=== PATIENT | female | born 1955 | race American Indian/Alaskan Native ===

== ENCOUNTER 2017-03-03 10:32 | Outpatient (CLI) | payer OTHER ==
--- NOTE | 2017-03-05 14:59 | Mammography Report ---
BILATERAL MAMMOGRAM with CAD: HISTORY: Cancer screening. Comparison study is dated February 23, 2015. FINDINGS: The breast tissue is heterogeneously dense, which could obscure detection of small masses (approximately 50%-75% glandular). No mass, distortion, suspicious calcification, or skin change is seen. IMPRESSION: Negative mammogram. There is no mammographic evidence of malignancy. RECOMMENDATION: Follow-up per ACS guidelines. BI-RADS CATEGORY: 1 = Negative ACR BI-RADS MAMMOGRAPHIC CODES: 0 = Needs additional imaging evaluation; 1 = Negative; 2 = Benign; 3 = Probably benign; 4 = Suspicious; 5 = Malignant; 6 = Known biopsy-proven malignancy COMMENT: 1. Dense breast tissue, i.e., adenosis, fibrocystic changes, etc., may obscure an underlying neoplasm. 2. Approximately 10% of cancers are not detected with mammography. 3. A negative mammography report should not delay biopsy if a clinically suspicious mass is present. COMMENT: Patient follow-up letters are generated in [employer].
== END 2017-03-03 10:33 | disposition home or self-care (01) ==
LOC: MAMMO 10:32
PROVIDERS: ATTEND Family Medicine Adult Medicine
DX: Z12.31 Encounter for screening mammogram for malignant neoplasm of breast (principal); I10 Essential (primary) hypertension; Z87.891 Personal history of nicotine dependence
CPT/HCPCS: 77067; G0202

== ENCOUNTER 2018-05-11 08:01 | Outpatient (CLI) | payer OTHER ==
--- NOTE | 2018-05-11 11:16 | Mammography Report ---
BILATERAL DIGITAL SCREENING MAMMOGRAM with CAD: 05/11/18 08:01:00 CLINICAL: Routine screening. COMPARISON:03/03/17 FINDINGS: The breasts are heterogeneously dense, which may obscure small masses. No mass, architectural distortion or suspicious calcifications. IMPRESSION: No mammographic evidence of malignancy. BI-RADS CATEGORY: 1 - - Negative RECOMMENDATION: Routine mammographic screening in one year. COMMENT: Patient follow-up letters are generated by our [employer] application.
== END 2018-05-11 08:02 | disposition home or self-care (01) ==
LOC: MAMMO 08:01
PROVIDERS: ATTEND Family Medicine Adult Medicine
DX: Z12.31 Encounter for screening mammogram for malignant neoplasm of breast (principal)
CPT/HCPCS: 77067

== ENCOUNTER 2019-06-25 09:38 | Outpatient (CLI) | payer OTHER ==
--- NOTE | 2019-06-28 10:35 | Mammography Report ---
DIGITAL SCREENING MAMMOGRAM WITH CAD, 06/25/2019 INDICATION: Routine screening mammography. TECHNIQUE: Digital bilateral 2D mammography was obtained in the craniocaudal and mediolateral obliq ue projections. This examination was interpreted with the benefit of Computer-Aided Detection analysi s. COMPARISON: 05/11/2018 FINDINGS: Breast Density: The breasts are heterogeneously dense, which may obscure small masses. There is no evidence of dominant mass, suspicious calcifications or architectural distortion in eithe r breast. A few scattered bilateral benign calcifications. IMPRESSION: No mammographic evidence of malignancy. Follow up recommendation: Routine yearly BI-RADS Category 2: Benign. A "normal" or negative report should not discourage follow up or biopsy of a clinically significant f inding. A written summary of these findings will be mailed to the patient. The patient will be entered into a mammography reporting system which will generate a reminder letter for the patient's next appointmen t at the appropriate interval. The [employer] recommends yearly mammograms starting at age 40 and continuing as l rivera as a woman is in good health. Breast MRI is recommended for women with an approximate 20-25% or greater lifetime risk of breast cancer, including women with a strong family history of breast or ova susan cancer or who have been treated for Hodgkin's disease. Signer Name: Yannick Spicer MD Signed: 06/28/2019 10:30 AM Workstation Name: [id number]
== END 2019-06-25 09:39 | disposition home or self-care (01) ==
LOC: MAMMO 09:38
PROVIDERS: ATTEND Family Medicine Adult Medicine
DX: Z12.31 Encounter for screening mammogram for malignant neoplasm of breast (principal)
CPT/HCPCS: 77067

== ENCOUNTER 2020-06-26 09:06 | Outpatient (CLI) | payer OTHER ==
--- NOTE | 2020-06-26 10:25 | Mammography Report ---
DIGITAL SCREENING MAMMOGRAM WITH CAD, 06/26/2020 INDICATION: Routine screening mammography. TECHNIQUE: Digital bilateral 2D mammography was obtained in the craniocaudal and mediolateral obliq ue projections. This examination was interpreted with the benefit of Computer-Aided Detection analysi s. COMPARISON: Prior mammograms 06/25/2019 and 05/11/2018 FINDINGS: Breast Density: The breasts are heterogeneously dense, which may obscure small masses. There is no evidence of dominant mass, suspicious calcifications or architectural distortion in eithe r breast. There has been no significant change compared with the prior examinations. IMPRESSION: Follow up recommendation: Routine yearly BI-RADS Category 1: Negative. A "normal" or negative report should not discourage follow up or biopsy of a clinically significant f inding. A written summary of these findings will be mailed to the patient. The patient will be entered into a mammography reporting system which will generate a reminder letter for the patient's next appointmen t at the appropriate interval. The [employer] recommends yearly mammograms starting at age 40 and continuing as l rivera as a woman is in good health. Breast MRI is recommended for women with an approximate 20-25% or greater lifetime risk of breast cancer, including women with a strong family history of breast or ova susan cancer or who have been treated for Hodgkin's disease. Signer Name: Sobia Carbajal MD Signed: 06/26/2020 10:20 AM Workstation Name: [id number]
== END 2020-06-26 09:07 | disposition home or self-care (01) ==
LOC: MAMMO 09:06
PROVIDERS: ATTEND Family Medicine Adult Medicine
DX: Z12.31 Encounter for screening mammogram for malignant neoplasm of breast (principal)
CPT/HCPCS: 77067

== ENCOUNTER 2021-03-07 12:43 | Inpatient (IN) | payer OTHER ==
--- NOTE | 2021-03-07 13:37 | Event Note ---
ED Screening Note Date of service: 03/07/21 Time: 13:37 ED Screening Note: Patient complains of shortness of breath starting last night States she has had a nonproductive cough for 1 week Denies any chest pain or fever History of diabetes and hypertension No recent long travel, hemoptysis, leg pain/swelling, or history of DVT/PE This initial assessment/diagnostic orders/clinical plan/treatment(s) is/are subject to change based on patients health status, clinical progression and re-assessment by fellow clinical providers in the ED. Further treatment and workup at subsequent clinical providers discretion. Patient/guardian urged not to elope from the ED as their condition may be serious if not clinically assessed and managed. Initial orders include: Labs Chest x-ray
--- NOTE | 2021-03-07 14:08 | XRay Report ---
CHEST 2 VIEWS INDICATION / CLINICAL INFORMATION: shortness of breath, cough. COMPARISON: 03/30/2020 FINDINGS: SUPPORT DEVICES: None. HEART / MEDIASTINUM: Stable. LUNGS / PLEURA: Interval development of confluent infiltrate in the right lung base. Small bilateral pleural effusions, right minimally greater than left.. No pneumothorax. ADDITIONAL FINDINGS: No significant additional findings. IMPRESSION: 1. Interval development of confluent infiltrate in the right lung base likely represents an infectiou s process. 2. Interval development of small bilateral pleural effusions with associated compressive atelectasis. Signer Name: Alistair Rowan MD Signed: 03/07/2021 2:03 PM Workstation Name: [id number]
[2021-03-07 14:43] LABS: Basophils # (Auto) 0.1 K/mm3 (0.0-0.1); Basophils % (Auto) 0.9 % (0.0-1.8); Eosinophils # (Auto) 0.1 K/mm3 (0.0-0.4); Eosinophils % (Auto) 1.1 % (0.0-4.3); Hematocrit 34.9 % (30.3-42.9); Hemoglobin 11.4 gm/dl (10.1-14.3); Lymphocytes # (Auto) 1.3 K/mm3 (1.2-5.4); Lymphocytes % (Auto) 14.7 % (13.4-35.0); Mean Corpuscular HGB Conc 33 % (30-34); Mean Corpuscular Volume 95 fl (79-97); Monocytes # (Auto) 0.7 K/mm3 (0.0-0.8); Monocytes % (Auto) 8.6 % (0.0-7.3); Platelet Count 412 K/mm3 (140-440); Red Blood Count 3.69 M/mm3 (3.65-5.03); Red Cell Distribution Width 13.8 % (13.2-15.2)
[2021-03-07 15:28] LABS: Albumin 3.9 g/dL (3.9-5); Calcium 9.1 mg/dL (8.4-10.2)
--- NOTE | 2021-03-07 21:06 | Emergency Department Report ---
ED Shortness of Breath HPI - General Chief Complaint: Dyspnea/Respdistress Stated Complaint: SOB Time Seen by Provider: 03/07/21 13:36 Source: patient Mode of arrival: Ambulatory Limitations: No Limitations - History of Present Illness Initial Comments: Patient is a 65-year-old female that presents emergency room with complaints of shortness of breath. Patient states shortness of breath started yesterday. Patient states her shortness of breath is worse. Patient also complains of fatigue. Patient states approximate week ago she had a cough and cold but that has improved and now she is just has a cough and shortness of breath. Patient states she has not been tested for COVID-19. Patient dates she has had both of her doses of her COVID-19 vaccine. Patient states her shortness breath better with rest and worse with exertion. Patient states her fatigue is better with rest and worse with exertion and movement. Patient denies fever and chills. Patient denies recent travel. Patient denies recent international travel. Patient denies exposure to the novel coronavirus. Patient denies sick contacts. Patient denies fever and chills. Patient denies loss of smell.. Patient denies diarrhea. Patient denies coming in contact with anybody with symptoms of the novel coronavirus. Patient denies chest pain. MD Complaint: shortness of breath -: Sudden - Related Data Home Medications Medication Instructions Recorded Confirmed Last Taken Bisoprolol/Hctz (Nf) [Ziac 5/6.25 1 tab PO QDAY 05/28/16 03/30/20 08/06/16 05:00 (Nf)] Ibuprofen [Motrin 800 MG tab] 800 mg PO TID 05/28/16 03/30/20 08/04/16 400 MG Multivit-Min/FA/Lycopen/Lutein 1 each PO QDAY 05/28/16 03/30/20 08/05/16 [Centrum Silver Tablet] Nesina 25 mg PO DAILY 05/31/16 03/30/20 08/05/16 Previous Rx's Medication Instructions Recorded Last Taken Type lisinopriL [Zestril TAB] 20 mg PO QDAY #30 tablet 11/12/13 Unknown Rx HYDROcodone/APAP 5-325 [[place] 1 - 2 each PO Q4HR PRN #30 tablet 08/06/16 Unknown Rx 5-325 mg TAB] Aspirin EC [Ecotrin] 325 mg PO QDAY #30 tablet 04/02/20 Unknown Rx NIFEdipine XL [Procardia Xl] 30 mg PO Q12HR #60 tablet 04/02/20 Unknown Rx Pravastatin [Pravachol] 80 mg PO QHS #30 tablet 04/02/20 Unknown Rx hydrALAZINE [Apresoline TAB] 75 mg PO Q8HR #90 tablet 04/02/20 Unknown Rx Allergies Allergy/AdvReac Type Severity Reaction Status Date / Time No Known Allergies Allergy Verified 11/10/13 15:34 ED Review of Systems ROS: Stated complaint: SOB Other details as noted in HPI Constitutional: denies: chills, fever Eyes: denies: eye pain, eye discharge, vision change ENT: denies: ear pain, throat pain Respiratory: see HPI, cough, shortness of breath, SOB with exertion, SOB at rest. denies: wheezing Cardiovascular: denies: chest pain, palpitations Endocrine: no symptoms reported Gastrointestinal: denies: abdominal pain, nausea, diarrhea Genitourinary: denies: urgency, dysuria, discharge Musculoskeletal: denies: back pain, joint swelling, arthralgia Skin: denies: rash, lesions Neurological: denies: headache, weakness, paresthesias Psychiatric: denies: anxiety, depression Hematological/Lymphatic: denies: easy bleeding, easy bruising ED Past Medical Hx - Past Medical History Previous Medical History?: Yes Hx Hypertension: Yes Hx Heart Attack/AMI: No Hx Congestive Heart Failure: No Hx Diabetes: Yes Hx Deep Vein Thrombosis: No Hx Pulmonary Embolism: No Hx GERD: No Hx Liver Disease: No Hx Renal Disease: No Hx Sickle Cell Disease: No Hx Arthritis: No Hx Headaches / Migraines: No Hx Seizures: No Hx Kidney Stones: No Hx Asthma: No Hx COPD: No Hx Tuberculosis: No Hx Dementia: No Hx HIV: No Additional medical history: hyperlipidemia - Surgical History Past Surgical History?: No Hx Coronary Stent: No Hx Open Heart Surgery: No Hx Pacemaker: No Hx Internal Defibrillator: No Hx Cholecystectomy: No Hx Appendectomy: No Hx Breast Surgery: No - Family History Family history: no significant - Social History Smoking Status: Former Smoker Substance Use Type: None - Medications Home Medications: Home Medications Medication Instructions Recorded Confirmed Last Taken Type lisinopriL [Zestril TAB] 20 mg PO QDAY #30 tablet 11/12/13 03/30/20 Unknown Rx Bisoprolol/Hctz (Nf) [Ziac 5/6.25 1 tab PO QDAY 05/28/16 03/30/20 08/06/16 05:00 History (Nf)] Ibuprofen [Motrin 800 MG tab] 800 mg PO TID 05/28/16 03/30/20 08/04/16 History 400 MG Multivit-Min/FA/Lycopen/Lutein 1 each PO QDAY 05/28/16 03/30/20 08/05/16 History [Centrum Silver Tablet] Nesina 25 mg PO DAILY 05/31/16 03/30/20 08/05/16 History HYDROcodone/APAP 5-325 [[place] 1 - 2 each PO Q4HR PRN #30 tablet 08/06/16 03/30/20 Unknown Rx 5-325 mg TAB] Aspirin EC [Ecotrin] 325 mg PO QDAY #30 tablet 04/02/20 Unknown Rx NIFEdipine XL [Procardia Xl] 30 mg PO Q12HR #60 tablet 04/02/20 Unknown Rx Pravastatin [Pravachol] 80 mg PO QHS #30 tablet 04/02/20 Unknown Rx hydrALAZINE [Apresoline TAB] 75 mg PO Q8HR #90 tablet 04/02/20 Unknown Rx ED Physical Exam - General Limitations: No Limitations General appearance: alert, in no apparent distress - Head Head exam: Present: atraumatic, normocephalic - Eye Eye exam: Present: normal appearance - ENT ENT exam: Present: mucous membranes moist - Neck Neck exam: Present: normal inspection - Respiratory Respiratory exam: Present: normal lung sounds bilaterally. Absent: respiratory distress - Cardiovascular Cardiovascular Exam: Present: regular rate, normal rhythm. Absent: systolic murmur, diastolic murmur, rubs, gallop - GI/Abdominal GI/Abdominal exam: Present: soft, normal bowel sounds - Extremities Exam Extremities exam: Present: normal inspection - Back Exam Back exam: Present: normal inspection - Neurological Exam Neurological exam: Present: alert, oriented X3 - Psychiatric Psychiatric exam: Present: normal affect, normal mood - Skin Skin exam: Present: warm, dry, intact, normal color. Absent: rash ED Course Vital Signs 03/07/21 03/07/21 03/07/21 13:32 13:38 20:35 Temperature 99.2 F Pulse Rate 106 H 107 H 88 Respiratory 18 19 Rate Blood Pressure Blood Pressure 166/98 [Right] O2 Sat by Pulse 98 98 98 Oximetry 03/07/21 03/07/21 03/07/21 20:45 21:01 21:15 Temperature Pulse Rate 89 90 94 H Respiratory 18 20 19 Rate Blood Pressure 154/98 165/113 165/103 Blood Pressure [Right] O2 Sat by Pulse 96 96 94 Oximetry 03/07/21 03/07/21 21:31 21:45 Temperature Pulse Rate 91 H 93 H Respiratory 19 18 Rate Blood Pressure 164/104 167/101 Blood Pressure [Right] O2 Sat by Pulse 95 96 Oximetry - Reevaluation(s) Reevaluation #1: I discussed all results with patient. I discussed plan of care with patient. Patient agrees with plan of care and admission. Patient to be admitted to the hospitalist service. 03/07/21 23:08 - Consultations Consultation #1: Hospitalist consulted for admission. Hospitalist to admit patient. 03/07/21 23:08 Consultation #2: Nephrology consulted. 03/07/21 23:08 ED Medical Decision Making - Lab Data Result diagrams: 03/07/21 14:27 03/07/21 14:27 - EKG Data -: EKG Interpreted by Me EKG shows normal: sinus rhythm, axis, intervals, QRS complexes, ST-T waves Rate: normal - EKG Data Interpretation: LV[facility] - Radiology Data Radiology results: report reviewed, image reviewed interpreted by me: Chest x-ray: pneumonia noted, no pneumothorax, no foreign body, no osseous findings, pulmonary edema noted CHEST 2 VIEWS INDICATION / CLINICAL INFORMATION: shortness of breath, cough. COMPARISON: 03/30/2020 FINDINGS: SUPPORT DEVICES: None. HEART / MEDIASTINUM: Stable. LUNGS / PLEURA: Interval development of confluent infiltrate in the right lung base. Small bilateral pleural effusions, right minimally greater than left.. No pneumothorax. ADDITIONAL FINDINGS: No significant additional findings. IMPRESSION: 1. Interval development of confluent infiltrate in the right lung base likely represents an infectious process. 2. Interval development of small bilateral pleural effusions with associated compressive atelectasis. - Medical Decision Making Patient is a 65-year-old female that presents emergency room with complaints of shortness of breath and cough. Patient states she had a cold symptoms about a week ago but those have improved. Patient states only symptoms she has shortness of breath cough fatigue. Patient already had a COVID-19 vaccine. Patient had labs done which were consistent with acute renal failure and elevated troponin. Patient also found to have an elevated BNP. Patient had chest x-ray which shows pneumonia and pulmonary edema. I personally reviewed the chest x-ray. Patient had an EKG done which shows LVH and a normal sinus rhythm. Patient does not have any ST changes. I personally reviewed the EKG. Patient given antibiotics and IV Lasix in the ER. Patient admitted to the hospital service for further evaluation treatment. Critical care time documented due to the multiple reassessments, prolonged time at the bedside, interpretation of diagnostics and labs. - Differential Diagnosis Pneumonia, shortness of breath, cough, URI, CHF, Critical Care Time: Yes Critical care time in (mins) excluding proc time.: 35 Critical care attestation.: If time is entered above; I have spent that time in minutes in the direct care of this critically ill patient, excluding procedure time. Critical Care Time: 35 minutes ED Disposition Clinical Impression: SOB (shortness of breath), Cough, New onset of congestive heart failure, Pulmonary edema cardiac cause, Elevated troponin I level Renal failure Qualifiers: Renal failure chronicity: acute Acute renal failure type: unspecified Qualified Code(s): N17.9 - Acute kidney failure, unspecified Pneumonia Qualifiers: Pneumonia type: due to unspecified organism Laterality: right Lung location: unspecified part of lung Qualified Code(s): J18.9 - Pneumonia, unspecified organism Disposition: OP ADMIT IP TO THIS HOSP Is pt being admited?: Yes Does the pt Need Aspirin: No Condition: Stable Time of Disposition: 23:10
[2021-03-07 22:31] LABS: Chol/HDL Ratio 2.67 %
[2021-03-07] MEDS ORDERED: CEFEPIME/NS 2 GM/100 ML 2 GM/100 ML BAG IV ONE (23:11)
[2021-03-07] MEDS ORDERED: FUROSEMIDE 40 MG/4 ML INJ IV ONE (23:11)
[2021-03-07] MEDS ORDERED: DEXTROSE 50% IN WATER (25GM) 50 ML SYRINGE IV PRN (23:40)
[2021-03-07] MEDS ORDERED: ACETAMINOPHEN 325 MG TAB PO PRN (23:40)
[2021-03-07] MEDS ORDERED: ONDANSETRON 4 MG/2 ML INJ IV PRN (23:40)
[2021-03-07] MEDS ORDERED: ALBUTEROL 2.5 MG/3 ML NEBU IH PRN (23:40)
[2021-03-07] MEDS ORDERED: NITROGLYCERIN 0.4 MG TAB SUBL SL PRN (23:42)
--- NOTE | 2021-03-08 00:12 | History and Physical Report ---
History of Present Illness Date of examination: 03/07/21 Date of admission: 03/07/2021 Chief complaint: SOB History of present illness: 65-year-old -[place] female who was a former smoker (quit 6 months ago) with history of hypertension, DM2, HLD, and chronic back pain who presents [facility] with complaints of cough and shortness of breath. Patient complains of nonproductive cough x1 week, and thinks that she might have a cold. Additionally she complains of progressively worsening shortness of breath which started approximately 1 day ago. Her shortness of breath is exacerbated with exertion and relieved with rest. Denies bilateral lower extremity edema, peripheral edema, PND, or orthopnea. Endorses receiving both doses of COVID-19 vaccine. Patient also complains of fatigue with exertion. Denies any new exercise regiment or strenuous activity. States that she quit smoking 6 months ago, and does not use any other form of tobacco products at this time. Endorses compliance with meds. Denies chest pain, sputum production, hemoptysis, fever, chills, abdominal pain, nausea, vomiting, diarrhea, loss of smell, loss of taste, hematuria, recent travel, or recent sick contacts. Review of medical record shows patient was admitted in March of last year for syncope. Work-up included bilateral carotid Doppler which revealed left greater than 70% carotid stenosis. Patient was evaluated by vascular surgery and advised to follow-up as outpatient. Is unclear if patient follow-up as instructed. Past History Past Medical History: diabetes, hypertension, hyperlipidemia, other (chronic back pain) Past Surgical History: No surgical history Social history: , lives with family, full code, other (former smoker quit 6 months ago). denies: alcohol abuse, prescription drug abuse, IV drug use Family history: hypertension Medications and Allergies Allergies Allergy/AdvReac Type Severity Reaction Status Date / Time No Known Allergies Allergy Verified 11/10/13 15:34 Home Medications Medication Instructions Recorded Confirmed Last Taken Type lisinopriL [Zestril TAB] 20 mg PO QDAY #30 tablet 11/12/13 03/30/20 Unknown Rx Bisoprolol/Hctz (Nf) [Ziac 5/6.25 1 tab PO QDAY 05/28/16 03/30/20 08/06/16 05:00 History (Nf)] Ibuprofen [Motrin 800 MG tab] 800 mg PO TID 05/28/16 03/30/20 08/04/16 History 400 MG Multivit-Min/FA/Lycopen/Lutein 1 each PO QDAY 05/28/16 03/30/20 08/05/16 History [Centrum Silver Tablet] [place] 25 mg PO DAILY 05/31/16 03/30/20 08/05/16 History HYDROcodone/APAP 5-325 [[place] 1 - 2 each PO Q4HR PRN #30 tablet 08/06/16 03/30/20 Unknown Rx 5-325 mg TAB] Aspirin EC [Ecotrin] 325 mg PO QDAY #30 tablet 04/02/20 Unknown Rx NIFEdipine XL [Procardia Xl] 30 mg PO Q12HR #60 tablet 04/02/20 Unknown Rx Pravastatin [Pravachol] 80 mg PO QHS #30 tablet 04/02/20 Unknown Rx hydrALAZINE [Apresoline TAB] 75 mg PO Q8HR #90 tablet 04/02/20 Unknown Rx Active Meds: Active Medications Acetaminophen (Acetaminophen 325 Mg Tab) 650 mg PO Q4H PRN PRN Reason: Pain MILD(1-3)/Fever >100.5/[facility] Albuterol (Albuterol 2.5 Mg/3 Ml Nebu) 2.5 mg IH Q3HRT PRN PRN Reason: Shortness Of Breath Aspirin (Aspirin Ec 325 Mg Tab) 325 mg PO QDAY [facility] Carvedilol (Carvedilol 6.25 Mg Tab) 6.25 mg PO BID [facility] Dextrose (Dextrose 50% In Water (25gm) 50 Ml Syringe) 50 ml IV Q30MIN PRN; Protocol PRN Reason: Hypoglycemia Docusate Sodium (Docusate Sodium 100 Mg Cap) 100 mg PO BID [facility] Furosemide (Furosemide 40 Mg/4 Ml Inj) 40 mg IV BID@0600,1800 [facility] Guaifenesin (Guaifenesin Er 600 Mg Tab) 600 mg PO BID [facility] Heparin Sodium (Porcine) (Heparin 5,000 Unit/1 Ml Vial) 5,000 unit SUB-Q BID [facility] Hydralazine HCl (Hydralazine 25 Mg Tab) 75 mg PO Q8HR [facility] Ceftriaxone Sodium (Rocephin/Ns 1 Gm/50 Ml) 1 gm in 50 mls @ 100 mls/hr IV Q24HR [facility]; Protocol Insulin Human Lispro (Insulin Lispro 100 Unit/Ml) 0 unit SUB-Q ACHS [facility]; Protocol Lisinopril (Lisinopril 20 Mg Tab) 20 mg PO QDAY [facility] Nitroglycerin (Nitroglycerin 0.4 Mg Tab Subl) 0.4 mg SL .Q5MIN PRN PRN Reason: Chest Pain Ondansetron HCl (Ondansetron 4 Mg/2 Ml Inj) 4 mg IV Q6H PRN PRN Reason: Nausea And Vomiting Pravastatin Sodium (Pravastatin 80 Mg Tab) 80 mg PO QHS [facility] Sodium Chloride (Sodium Chloride 0.9% 10 Ml Flush Syringe) 10 ml IV BID [facility] Sodium Chloride (Sodium Chloride 0.9% 10 Ml Flush Syringe) 10 ml IV PRN PRN PRN Reason: LINE FLUSH Review of Systems All systems: negative (As noted in HPI) Exam - Physical Exam Narrative exam: Physical exam General appearance: Present: No acute distress, alert and oriented 3, adult female - EENT Eyes: Present: PERRL, EOM intact ENT: hearing intact, normal dentition - Neck Neck: Present: supple, normal ROM - Respiratory Respiratory effort: Non-labored Respiratory: Right basilar crackles, otherwise clear throughout - Cardiovascular Heart rate: 91 (bpm) Rhythm: Sinus Heart Sounds: Present: S1 & S2. Absent: rub, click - Extremities Extremities: no ischemia, pulses intact, - Peripheral Assessment Peripheral Pulses: within normal limits - Abdominal General gastrointestinal: soft, non-tender, normal bowel sounds - Integumentary Integumentary: Present: warm, dry - Musculoskeletal Musculoskeletal: Able to move all extremities -Neurological Neurological: CN II-XII intact - Psychiatric Psychiatric: Appropriate for situation ,cooperative - Constitutional Vitals: Temp Pulse Resp BP Pulse Ox 99.2 F 93 H 18 167/101 96 03/07/21 13:38 03/07/21 21:45 03/07/21 21:45 03/07/21 21:45 03/07/21 21:45 HEART Score - HEART Score History: Moderately suspicious EKG: Non-specific Age: 45-65 Risk factors: > 3 risk factors or hx of atherosclerotic disease Troponin: WBC 8.5 K/mm3 (4.5-11.0) 03/07/21 14:27 RBC 3.69 M/mm3 (3.65-5.03) 03/07/21 14:27 Hgb 11.4 gm/dl (10.1-14.3) 03/07/21 14:27 Hct 34.9 % (30.3-42.9) 03/07/21 14:27 MCV 95 fl (79-97) 03/07/21 14:27 MCH 31 pg (28-32) 03/07/21 14:27 MCHC 33 % (30-34) 03/07/21 14:27 RDW 13.8 % (13.2-15.2) 03/07/21 14:27 Plt Count 412 K/mm3 (140-440) 03/07/21 14:27 Lymph % (Auto) 14.7 % (13.4-35.0) 03/07/21 14:27 [place] % (Auto) 8.6 % (0.0-7.3) H 03/07/21 14:27 Eos % (Auto) 1.1 % (0.0-4.3) 03/07/21 14:27 Baso % (Auto) 0.9 % (0.0-1.8) 03/07/21 14:27 Lymph # (Auto) 1.3 K/mm3 (1.2-5.4) 03/07/21 14:27 [place] # (Auto) 0.7 K/mm3 (0.0-0.8) 03/07/21 14:27 Eos # (Auto) 0.1 K/mm3 (0.0-0.4) 03/07/21 14:27 Baso # (Auto) 0.1 K/mm3 (0.0-0.1) 03/07/21 14:27 Seg Neutrophils % 74.7 % (40.0-70.0) H 03/07/21 14:27 Seg Neutrophils # 6.4 K/mm3 (1.8-7.7) 03/07/21 14:27 Sodium 136 mmol/L (137-145) L 03/07/21 14:27 Potassium 4.7 mmol/L (3.6-5.0) 03/07/21 14:27 Chloride 100.4 mmol/L (98-107) 03/07/21 14:27 Carbon Dioxide 19 mmol/L (22-30) L 03/07/21 14:27 Anion Gap 21 mmol/L 03/07/21 14:27 BUN 27 mg/dL (7-17) H 03/07/21 14:27 Creatinine 1.6 mg/dL (0.6-1.2) H 03/07/21 14:27 Estimated GFR 39 ml/min 03/07/21 14:27 BUN/Creatinine Ratio 17 % 03/07/21 14:27 Glucose 201 mg/dL (65-100) H 03/07/21 14:27 Calcium 9.1 mg/dL (8.4-10.2) 03/07/21 14:27 Total Bilirubin 0.30 mg/dL (0.1-1.2) 03/07/21 14:27 AST 22 units/L (5-40) 03/07/21 14:27 ALT 29 units/L (7-56) 03/07/21 14:27 Alkaline Phosphatase 73 units/L (35-129) 03/07/21 14:27 Troponin T 0.030 ng/mL (0.00-0.029) H 03/07/21 21:37 NT-Pro-B Natriuret Pep 9110 pg/mL (0-900) H 03/07/21 14:27 Total Protein 7.2 g/dL (6.3-8.2) 03/07/21 14:27 Albumin 3.9 g/dL (3.9-5) 03/07/21 14:27 Albumin/Globulin Ratio 1.2 % 03/07/21 14:27 Triglycerides 92 mg/dL (2-149) 03/07/21 21:37 Cholesterol 142 mg/dL (50-199) 03/07/21 21:37 LDL Cholesterol Direct 91 mg/dL (50-130) 03/07/21 21:37 HDL Cholesterol 53 mg/dL (40-59) 03/07/21 21:37 Cholesterol/HDL Ratio 2.67 % 03/07/21 21:37 Results - Labs CBC & Chem 7: 03/07/21 14:27 03/07/21 14:27 Labs: Laboratory Last Values WBC 8.5 K/mm3 (4.5-11.0) 03/07/21 14:27 RBC 3.69 M/mm3 (3.65-5.03) 03/07/21 14:27 Hgb 11.4 gm/dl (10.1-14.3) 03/07/21 14:27 Hct 34.9 % (30.3-42.9) 03/07/21 14:27 MCV 95 fl (79-97) 03/07/21 14:27 MCH 31 pg (28-32) 03/07/21 14:27 MCHC 33 % (30-34) 03/07/21 14:27 RDW 13.8 % (13.2-15.2) 03/07/21 14:27 Plt Count 412 K/mm3 (140-440) 03/07/21 14:27 Lymph % (Auto) 14.7 % (13.4-35.0) 03/07/21 14:27 [place] % (Auto) 8.6 % (0.0-7.3) H 03/07/21 14:27 Eos % (Auto) 1.1 % (0.0-4.3) 03/07/21 14:27 Baso % (Auto) 0.9 % (0.0-1.8) 03/07/21 14:27 Lymph # (Auto) 1.3 K/mm3 (1.2-5.4) 03/07/21 14:27 [place] # (Auto) 0.7 K/mm3 (0.0-0.8) 03/07/21 14:27 Eos # (Auto) 0.1 K/mm3 (0.0-0.4) 03/07/21 14:27 Baso # (Auto) 0.1 K/mm3 (0.0-0.1) 03/07/21 14:27 Seg Neutrophils % 74.7 % (40.0-70.0) H 03/07/21 14:27 Seg Neutrophils # 6.4 K/mm3 (1.8-7.7) 03/07/21 14:27 Sodium 136 mmol/L (137-145) L 03/07/21 14:27 Potassium 4.7 mmol/L (3.6-5.0) 03/07/21 14:27 Chloride 100.4 mmol/L (98-107) 03/07/21 14:27 Carbon Dioxide 19 mmol/L (22-30) L 03/07/21 14:27 Anion Gap 21 mmol/L 03/07/21 14:27 BUN 27 mg/dL (7-17) H 03/07/21 14:27 Creatinine 1.6 mg/dL (0.6-1.2) H 03/07/21 14:27 Estimated GFR 39 ml/min 03/07/21 14:27 BUN/Creatinine Ratio 17 % 03/07/21 14:27 Glucose 201 mg/dL (65-100) H 03/07/21 14:27 Calcium 9.1 mg/dL (8.4-10.2) 03/07/21 14:27 Total Bilirubin 0.30 mg/dL (0.1-1.2) 03/07/21 14:27 AST 22 units/L (5-40) 03/07/21 14:27 ALT 29 units/L (7-56) 03/07/21 14:27 Alkaline Phosphatase 73 units/L (35-129) 03/07/21 14:27 Troponin T 0.030 ng/mL (0.00-0.029) H 03/07/21 21:37 NT-Pro-B Natriuret Pep 9110 pg/mL (0-900) H 03/07/21 14:27 Total Protein 7.2 g/dL (6.3-8.2) 03/07/21 14:27 Albumin 3.9 g/dL (3.9-5) 03/07/21 14:27 Albumin/Globulin Ratio 1.2 % 03/07/21 14:27 Triglycerides 92 mg/dL (2-149) 03/07/21 21:37 Cholesterol 142 mg/dL (50-199) 03/07/21 21:37 LDL Cholesterol Direct 91 mg/dL (50-130) 03/07/21 21:37 HDL Cholesterol 53 mg/dL (40-59) 03/07/21 21:37 Cholesterol/HDL Ratio 2.67 % 03/07/21 21:37 - Imaging and Cardiology EKG: image reviewed Chest x-ray: report reviewed, image reviewed - Diagnostic Impressions Diagnostic Impressions: CXR: FINDINGS: SUPPORT DEVICES: None. HEART / MEDIASTINUM: Stable. LUNGS / PLEURA: Interval development of confluent infiltrate in the right lung base. Small b ilateral pleural effusions, right minimally greater than left.. No pneumothorax. ADDITIONAL FINDINGS: No significant additional findings. IMPRESSION: 1. Interval development of confluent infiltrate in the right lung base likely represents an infectious process. 2. Interval development of small bilateral pleural effusions with associated compressive atelectasis. Assessment and Plan Assessment and plan: Pneumonia -CXR shows Interval development of confluent infiltrate in the right lung base likely represents an infectious process -Blood Cultures pending -Monitor CBC -Start on IV Abx -Supportive care Acute CHF (new onset) -BNP elevated at 9110 -c/o of progressively worsening shortness of breath, denies bilateral lower extremity edema, or peripheral edema -Troponin elevated x2, now 0.030 (trending up from 0.027), will continue to trend -??Troponin leak -CXR shows Interval development of small bilateral pleural effusions with associated compressive atelectasis -Continue ASA and LUCIEN, will start on BB -Start IV Lasix twice a day -Echo pending -Cardiology consulted Elevated troponin -Troponin elevated x2, now 0.030 (trending up from 0.027), will continue to trend -??Troponin leak -Echo pending -Cardiology consulted Dyspnea -Monitor saturations -Albuterol as needed -Supplemental oxygen as needed HTN -Monitor BP -Resume home hypertensive meds DM -With hyperglycemia -BG on admission 201 -POC BG monitoring -SSI coverage prn -HgbA1C pending GI and DVT PPX -On heparin and Pepcid Advance Directives: No VTE prophylaxis?: Chemical, Mechanical Plan of care discussed with patient/family: Yes
[2021-03-08] MEDS: guaiFENesin ER 600 MG TAB PO SCH ×3 (01:35→22:05)
[2021-03-08] MEDS: hydrALAZINE 25 MG TAB PO SCH ×3 (06:09→22:05)
[2021-03-08] MEDS: FUROSEMIDE 40 MG/4 ML INJ IV SCH ×2 (06:09→18:55)
[2021-03-08] MEDS ORDERED: carvediloL 6.25 MG TAB PO SCH (10:00)
--- NOTE | 2021-03-08 10:05 | Consultation ---
History of Present Illness Consult date: 03/08/21 Requesting physician: HANS CARDONA Consult reason: congestive heart failure, elevated troponin History of present illness: Pt is a 65-year-old AA female with a hx of HTN, HLD, and DM2, who presented with complaints of SOB and dry cough x 7-10 days. Pt reports she had a sinus infection or cold and felt very congested at home. She also reports MARTINEZ. Denies orthopnea, PND, and edema. No additional cardiac complaints. BNP significantly elevated upon arrival. CXR reveals R lung base infiltrate and small bilateral pleural effusions with associated compressive atelectasis. Of note, pt does report a hx of prior tobacco use but states she quit smoking approximately 5-6 months ago. Echo 03/2020 - EF 55-60%, mild concentric LVH, trace MR, trace AR, trace TR. Past History Past Medical History: diabetes, hypertension, hyperlipidemia, other (chronic ba ck pain) Past Surgical History: denies: valve replacement, CABG, PTCA Social history: , lives with family, smoking (former, quit 6 months ago). denies: alcohol abuse Family history: diabetes, hypertension Medications and Allergies Allergies Allergy/AdvReac Type Severity Reaction Status Date / Time No Known Allergies Allergy Verified 11/10/13 15:34 Home Medications Medication Instructions Recorded Confirmed Last Taken Type lisinopriL [Zestril TAB] 20 mg PO QDAY #30 tablet 11/12/13 03/08/21 03/07/21 Rx Bisoprolol/Hctz (Nf) [[place]iac 5/6.25 1 tab PO QDAY 05/28/16 03/08/21 03/07/21 History (Nf)] Ibuprofen [Motrin 800 MG tab] 800 mg PO TID 05/28/16 03/08/21 08/04/16 History 400 MG Multivit-Min/FA/Lycopen/Lutein 1 each PO QDAY 05/28/16 03/08/21 03/06/21 History [Centrum Silver Tablet] [place] 25 mg PO DAILY 05/31/16 03/08/21 08/05/16 History HYDROcodone/APAP 5-325 [[place] 1 - 2 each PO Q4HR PRN #30 tablet 08/06/16 03/08/21 Unknown Rx 5-325 mg TAB] Aspirin EC [Ecotrin] 325 mg PO QDAY #30 tablet 04/02/20 03/08/21 03/06/21 Rx NIFEdipine XL [Procardia Xl] 30 mg PO Q12HR #60 tablet 04/02/20 03/08/21 03/07/21 Rx Pravastatin [Pravachol] 80 mg PO QHS #30 tablet 04/02/20 03/08/21 03/07/21 Rx hydrALAZINE [Apresoline TAB] 75 mg PO Q8HR #90 tablet 04/02/20 03/08/21 03/06/21 Rx Active Meds: Active Medications Acetaminophen (Acetaminophen 325 Mg Tab) 650 mg PO Q4H PRN PRN Reason: Pain MILD(1-3)/Fever >100.5/[facility] Albuterol (Albuterol 2.5 Mg/3 Ml Nebu) 2.5 mg IH Q3HRT PRN PRN Reason: Shortness Of Breath Aspirin (Aspirin Ec 325 Mg Tab) 325 mg PO QDAY [facility] Dextrose (Dextrose 50% In Water (25gm) 50 Ml Syringe) 50 ml IV Q30MIN PRN; Protocol PRN Reason: Hypoglycemia Docusate Sodium (Docusate Sodium 100 Mg Cap) 100 mg PO BID [facility] Famotidine (Famotidine 10 Mg Tab) 10 mg PO BID [facility] Furosemide (Furosemide 40 Mg/4 Ml Inj) 40 mg IV BID@0600,1800 [facility] Last Admin: 03/08/21 06:09 Dose: 40 mg Documented by: Guaifenesin (Guaifenesin Er 600 Mg Tab) 600 mg PO BID [facility] Last Admin: 03/08/21 01:35 Dose: 600 mg Documented by: Heparin Sodium (Porcine) (Heparin 5,000 Unit/1 Ml Vial) 5,000 unit SUB-Q BID [facility] Hydralazine HCl (Hydralazine 25 Mg Tab) 75 mg PO Q8HR [facility] Last Admin: 03/08/21 06:09 Dose: 75 mg Documented by: Ceftriaxone Sodium (Rocephin/Ns 1 Gm/50 Ml) 1 gm in 50 mls @ 100 mls/hr IV Q24HR [facility]; Protocol Insulin Human Lispro (Insulin Lispro 100 Unit/Ml) 0 unit SUB-Q ACHS [facility]; Protocol Lisinopril (Lisinopril 20 Mg Tab) 20 mg PO QDAY [facility] Nifedipine (Nifedipine Xl 30 Mg Tab) 30 mg PO Q12HR [facility] Nitroglycerin (Nitroglycerin 0.4 Mg Tab Subl) 0.4 mg SL .Q5MIN PRN PRN Reason: Chest Pain Ondansetron HCl (Ondansetron 4 Mg/2 Ml Inj) 4 mg IV Q6H PRN PRN Reason: Nausea And Vomiting Pravastatin Sodium (Pravastatin 80 Mg Tab) 80 mg PO QHS [facility] Sodium Chloride (Sodium Chloride 0.9% 10 Ml Flush Syringe) 10 ml IV BID [facility] Sodium Chloride (Sodium Chloride 0.9% 10 Ml Flush Syringe) 10 ml IV PRN PRN PRN Reason: LINE FLUSH Review of Systems Constitutional: fatigue, no fever, no chills, no sweats Ears, nose, mouth and throat: nasal congestion, sinus pressure Cardiovascular: shortness of breath, dyspnea on exertion, no chest pain, no orthopnea, no palpitations, no edema, no syncope, no lightheadedness, no paroxysmal nocturnal dyspnea, no claudication Respiratory: cough, shortness of breath, dyspnea on exertion, congestion Gastrointestinal: no abdominal pain, no nausea, no vomiting, no diarrhea, no constipation Genitourinary Female: no pelvic pain, no flank pain, no dysuria Musculoskeletal: no neck stiffness, no neck pain, no myalgias Integumentary: no rash, no wounds Neurological: no head injury, no paralysis, no weakness, no parathesias, no numbness, no tingling, no seizures, no syncope, no vertigo, no headaches Endocrine: no cold intolerance, no heat intolerance Hematologic/Lymphatic: no easy bruising, no easy bleeding Allergic/Immunologic: no anaphylaxis Physical Examination Last Vital Signs Temp 98.7 F 03/08/21 07:20 Pulse 101 H 03/08/21 10:55 Resp 18 03/08/21 07:20 BP 141/88 03/08/21 07:20 Pulse Ox 96 03/08/21 07:20 General appearance: no acute distress HEENT: Positive: EOMI, Normocephaly, Mucus Membranes Moist Neck: Positive: neck supple, trachea midline. Negative: JVD/HJR Cardiac: Positive: Reg Rate and Rhythm, S1/S2. Negative: Audible Murmur Lungs: Positive: Rales (bibasilar) Neuro: Positive: Grossly Intact Abdomen: Positive: Soft. Negative: Tender Skin: Negative: Rash Musculoskeletal: No Pain, Normal Range of Motion Extremities: Present: lower extr. pulses. Absent: edema Results 03/07/21 14:27 03/09/21 05:15 Cardiac Enzymes 03/07/21 Range/Units 14:27 AST 22 (5-40) units/L Lipids 03/07/21 Range/Units 21:37 Triglycerides 92 (2-149) mg/dL Cholesterol 142 (50-199) mg/dL HDL Cholesterol 53 (40-59) mg/dL Cholesterol/HDL Ratio 2.67 % CBC 03/07/21 Range/Units 14:27 WBC 8.5 (4.5-11.0) K/mm3 RBC 3.69 (3.65-5.03) M/mm3 Hgb 11.4 (10.1-14.3) gm/dl Hct 34.9 (30.3-42.9) % Plt Count 412 (140-440) K/mm3 Lymph # (Auto) 1.3 (1.2-5.4) K/mm3 [place] # (Auto) 0.7 (0.0-0.8) K/mm3 Eos # (Auto) 0.1 (0.0-0.4) K/mm3 Baso # (Auto) 0.1 (0.0-0.1) K/mm3 Comprehensive Metabolic Panel 03/07/21 Range/Units 14:27 Sodium 136 L (137-145) mmol/L Potassium 4.7 (3.6-5.0) mmol/L Chloride 100.4 (98-107) mmol/L Carbon Dioxide 19 L (22-30) mmol/L BUN 27 H (7-17) mg/dL Creatinine 1.6 H (0.6-1.2) mg/dL Glucose 201 H (65-100) mg/dL Calcium 9.1 (8.4-10.2) mg/dL AST 22 (5-40) units/L ALT 29 (7-56) units/L Alkaline Phosphatase 73 (35-129) units/L Total Protein 7.2 (6.3-8.2) g/dL Albumin 3.9 (3.9-5) g/dL - Imaging and Cardiology Echo: pending, other (03/2020 - EF 55-60%, mild concentric LVH, trace MR, trace AR, trace TR) EKG: report reviewed, image reviewed - EKG Interpretation EKG: no acute changes EKG interpretations - Telemetry EKG Rhythm: Sinus Tachycardia - EKG Sinus rhythms and dysrhythmias: sinus rhythm Chamber hypertrophy or enlargement: left ventricular hypertro Repolarization changes or abnormalities: nonspecific abnormality, ST segment, and/or T wave Assessment and Plan Echo pending. Continue IV Lasix BID with strict I/Os. Closely monitor renal indices and electrolytes. Will optimize antihypertensive regimen. Minimal CE elevation noted in the setting of suspected acute HF and ANTONIO. Pt denies chest pain. No acute ischemic changes on ECG. Will consider ischemic eval when clinically stable. Pt seen in conjunction with Dr. David Sanford, who agrees with the assessment and plan of care. - Patient Problems (1) Pneumonia Current Visit: Yes Status: Acute Qualifiers: Pneumonia type: due to unspecified organism Laterality: right (2) Acute heart failure Current Visit: Yes Status: Acute (3) ANTONIO (acute kidney injury) Current Visit: Yes Status: Acute (4) Elevated troponin Current Visit: Yes Status: Acute (5) HTN (hypertension) Current Visit: Yes Status: Acute Qualifiers: Hypertension type: essential hypertension Qualified Code(s): I10 - Essential (primary) hypertension (6) HLD (hyperlipidemia) Current Visit: Yes Status: Chronic Qualifiers: Hyperlipidemia type: mixed hyperlipidemia Qualified Code(s): E78.2 - Mixed hyperlipidemia (7) DM2 (diabetes mellitus, type 2) Current Visit: Yes Status: Chronic (8) Carotid artery stenosis Current Visit: Yes Status: Chronic (9) Chronic back pain Current Visit: Yes Status: Chronic
--- NOTE | 2021-03-08 10:14 | Consultation ---
History of Present Illness - Reason for Consult Consult date: 03/08/21 acute renal failure - History of Present Illness The patient is a 65 YO AAF with history of Hypertension, DM-2, HLD, PAD< chronic back pain and former smoker (quit 6 months ago) who presented to [facility] ED with complaints of cough and shortness of breath. Patient complains of nonproductive cough and sob for the past week. Per patient sob progressively got worse which prompted her to come to the ED. Patient also reports MARTINEZ and orthopnea. Endorses receiving both doses of COVID-19 vaccine. Patient denies cp, LE edema, PND, N, V, D, abd pain, dysuria, hematuria, dizziness, syncope, rahs, fever, chills, loss of smell, loss of taste, recent travel, or recent sick contacts. CXR showed PNA. Labs significant for Creat 1.6 and BUN 27. Past History Past Medical History: diabetes, hypertension, hyperlipidemia, other (chronic back pain) Past Surgical History: No surgical history Social history: , lives with family, full code, other (former smoker quit 6 months ago). denies: alcohol abuse, prescription drug abuse, IV drug use Family history: hypertension Medications and Allergies Allergies Allergy/AdvReac Type Severity Reaction Status Date / Time No Known Allergies Allergy Verified 11/10/13 15:34 Home Medications Medication Instructions Recorded Confirmed Last Taken Type lisinopriL [Zestril TAB] 20 mg PO QDAY #30 tablet 11/12/13 03/08/21 03/07/21 Rx Bisoprolol/Hctz (Nf) [Ziac 5/6.25 1 tab PO QDAY 05/28/16 03/08/21 03/07/21 History (Nf)] Ibuprofen [Motrin 800 MG tab] 800 mg PO TID 05/28/16 03/08/21 08/04/16 History 400 MG Multivit-Min/FA/Lycopen/Lutein 1 each PO QDAY 05/28/16 03/08/21 03/06/21 History [Centrum Silver Tablet] [place] 25 mg PO DAILY 05/31/16 03/08/21 08/05/16 History HYDROcodone/APAP 5-325 [[place] 1 - 2 each PO Q4HR PRN #30 tablet 08/06/16 03/08/21 Unknown Rx 5-325 mg TAB] Aspirin EC [Ecotrin] 325 mg PO QDAY #30 tablet 04/02/20 03/08/21 03/06/21 Rx NIFEdipine XL [Procardia Xl] 30 mg PO Q12HR #60 tablet 04/02/20 03/08/21 03/07/21 Rx Pravastatin [Pravachol] 80 mg PO QHS #30 tablet 04/02/20 03/08/21 03/07/21 Rx hydrALAZINE [Apresoline TAB] 75 mg PO Q8HR #90 tablet 04/02/20 03/08/21 03/06/21 Rx Active Meds: Active Medications Acetaminophen (Acetaminophen 325 Mg Tab) 650 mg PO Q4H PRN PRN Reason: Pain MILD(1-3)/Fever >100.5/[place] Albuterol (Albuterol 2.5 Mg/3 Ml Nebu) 2.5 mg IH Q3HRT PRN PRN Reason: Shortness Of Breath Aspirin (Aspirin Ec 325 Mg Tab) 325 mg PO QDAY [facility] Dextrose (Dextrose 50% In Water (25gm) 50 Ml Syringe) 50 ml IV Q30MIN PRN; Protocol PRN Reason: Hypoglycemia Docusate Sodium (Docusate Sodium 100 Mg Cap) 100 mg PO BID [facility] Famotidine (Famotidine 10 Mg Tab) 10 mg PO BID [facility] Furosemide (Furosemide 40 Mg/4 Ml Inj) 40 mg IV BID@0600,1800 [facility] Last Admin: 03/08/21 06:09 Dose: 40 mg Documented by: Guaifenesin (Guaifenesin Er 600 Mg Tab) 600 mg PO BID [facility] Last Admin: 03/08/21 01:35 Dose: 600 mg Documented by: Heparin Sodium (Porcine) (Heparin 5,000 Unit/1 Ml Vial) 5,000 unit SUB-Q BID [facility] Hydralazine HCl (Hydralazine 25 Mg Tab) 75 mg PO Q8HR [facility] Last Admin: 03/08/21 06:09 Dose: 75 mg Documented by: Ceftriaxone Sodium (Rocephin/Ns 1 Gm/50 Ml) 1 gm in 50 mls @ 100 mls/hr IV Q24HR [facility]; Protocol Insulin Human Lispro (Insulin Lispro 100 Unit/Ml) 0 unit SUB-Q ACHS [facility]; Protocol Lisinopril (Lisinopril 20 Mg Tab) 20 mg PO QDAY [facility] Metoprolol Tartrate (Metoprolol Tartrate 25 Mg Tab) 12.5 mg PO BID [facility] Nifedipine (Nifedipine Xl 30 Mg Tab) 30 mg PO Q12HR [facility] Nitroglycerin (Nitroglycerin 0.4 Mg Tab Subl) 0.4 mg SL .Q5MIN PRN PRN Reason: Chest Pain Ondansetron HCl (Ondansetron 4 Mg/2 Ml Inj) 4 mg IV Q6H PRN PRN Reason: Nausea And Vomiting Pravastatin Sodium (Pravastatin 80 Mg Tab) 80 mg PO QHS [facility] Sodium Chloride (Sodium Chloride 0.9% 10 Ml Flush Syringe) 10 ml IV BID RANDI Sodium Chloride (Sodium Chloride 0.9% 10 Ml Flush Syringe) 10 ml IV PRN PRN PRN Reason: LINE FLUSH Review of Systems Constitutional: fatigue, no weight loss, no weight gain, no fever, no chills, no anorexia, no weakness Breasts: deferred Cardiovascular: orthopnea, shortness of breath, dyspnea on exertion, high blood pressure, no chest pain, no palpitations, no edema, no syncope, no lightheadedness, no leg edema Respiratory: cough, shortness of breath, dyspnea on exertion, no hemoptysis Gastrointestinal: no abdominal pain, no nausea, no vomiting, no diarrhea, no melena Genitourinary Female: no dysuria, no hematuria Musculoskeletal: no muscle weakness Integumentary: no rash Neurological: no seizures, no syncope, no convulsions, no aphasia, no change in speech, no change in mentation, no confusion Exam - Vital Signs Vital signs: Vital Signs Pulse Pulse Ox 106 H 98 03/07/21 13:32 03/07/21 13:32 Results - Lab Results 03/07/21 14:27 03/08/21 04:17 Most recent lab results Calcium 9.1 mg/dL (8.4-10.2) 03/07/21 14:27 Assessment and Plan 1. Acute kidney injury: ANTONIO in the setting of PNA and ?CHF. ?ATN. Urine studies and Renal US ordered. Monitor renal function. Avoid nephrotoxic agents. Meds dosage based on GFR. 2. FEN: Anion-gap metabolic acidosis, monitor. Monitor lytes and volume status. 3. Pneumonia: IV antibiotics. Follow culture result. 4. CHF // Elevated troponin: IV lasix. Followed by Cards. 5. DM type 2. 6. Hypertension: BP controlled. Subjective: Patient was seen and examined at the bedside. Examination: General appearance: well-developed, appears stated age, not in distress, NC O2 HEENT: atraumatic, [place] Neck: trachea midline Respiratory: ctab Heart: S1S2, regular, no murmur Abdomen: soft, bowel sounds heard, NT Integumentary: no obvious rash Neurologic: AO, non-focal Ext: no edema
--- NOTE | 2021-03-08 10:27 | Progress Note ---
Assessment and Plan Assessment and plan: Pneumonia -CXR shows Interval development of confluent infiltrate in the right lung base likely represents an infectious process -Blood Cultures pending -Monitor CBC -Start on IV Abx -Supportive care Acute CHF (new onset) -BNP elevated at 9110 -c/o of progressively worsening shortness of breath, denies bilateral lower extremity edema, or peripheral edema -Troponin elevated x2, now 0.030 (trending up from 0.027), will continue to trend -??Troponin leak -CXR shows Interval development of small bilateral pleural effusions with associated compressive atelectasis -Continue ASA and LUCIEN, will start on BB -Start IV Lasix twice a day -Echo pending -Cardiology consulted Elevated troponin -Troponin elevated x2, now 0.030 (trending up from 0.027), will continue to trend -??Troponin leak -Echo pending -Cardiology consulted Dyspnea -Monitor saturations -Albuterol as needed -Supplemental oxygen as needed HTN -Monitor BP -Resume home hypertensive meds DM -With hyperglycemia -BG on admission 201 -POC BG monitoring -SSI coverage prn -HgbA1C pending GI and DVT PPX -On heparin and Pepcid History Interval history: No new issues overnight. Hospitalist Physical - Constitutional Vitals: Temp Pulse Resp BP Pulse Ox 98.7 F 101 H 18 141/88 96 03/08/21 07:20 03/08/21 07:20 03/08/21 07:20 03/08/21 07:20 03/08/21 07:20 General appearance: Present: no acute distress, well-nourished - EENT Eyes: Present: PERRL, EOM intact ENT: hearing intact, clear oral mucosa, dentition normal - Neck Neck: Present: supple, normal ROM - Respiratory Respiratory effort: normal Respiratory: bilateral: CTA - Cardiovascular Rhythm: regular Heart Sounds: Present: S1 & S2. Absent: gallop, rub - Extremities Extremities: no ischemia, No edema, Full ROM - Abdominal General gastrointestinal: soft, non-tender, non-distended, normal bowel sounds - Integumentary Integumentary: Present: clear, warm, dry - Neurologic Neurologic: CNII-XII intact, moves all extremities HEART Score - HEART Score EKG: Non-specific Age: 45-65 Risk factors: > 3 risk factors or hx of atherosclerotic disease Troponin: Troponin T 0.036 ng/mL (0.00-0.029) H 03/08/21 04:17 Results - Labs CBC & Chem 7: 03/07/21 14:27 03/07/21 14:27 Labs: Laboratory Last Values WBC 8.5 K/mm3 (4.5-11.0) 03/07/21 14:27 RBC 3.69 M/mm3 (3.65-5.03) 03/07/21 14:27 Hgb 11.4 gm/dl (10.1-14.3) 03/07/21 14:27 Hct 34.9 % (30.3-42.9) 03/07/21 14:27 MCV 95 fl (79-97) 03/07/21 14:27 MCH 31 pg (28-32) 03/07/21 14:27 MCHC 33 % (30-34) 03/07/21 14:27 RDW 13.8 % (13.2-15.2) 03/07/21 14:27 Plt Count 412 K/mm3 (140-440) 03/07/21 14:27 Lymph % (Auto) 14.7 % (13.4-35.0) 03/07/21 14:27 [place] % (Auto) 8.6 % (0.0-7.3) H 03/07/21 14:27 Eos % (Auto) 1.1 % (0.0-4.3) 03/07/21 14:27 Baso % (Auto) 0.9 % (0.0-1.8) 03/07/21 14:27 Lymph # (Auto) 1.3 K/mm3 (1.2-5.4) 03/07/21 14:27 [place] # (Auto) 0.7 K/mm3 (0.0-0.8) 03/07/21 14:27 Eos # (Auto) 0.1 K/mm3 (0.0-0.4) 03/07/21 14:27 Baso # (Auto) 0.1 K/mm3 (0.0-0.1) 03/07/21 14:27 Seg Neutrophils % 74.7 % (40.0-70.0) H 03/07/21 14:27 Seg Neutrophils # 6.4 K/mm3 (1.8-7.7) 03/07/21 14:27 Sodium 136 mmol/L (137-145) L 03/07/21 14:27 Potassium 4.7 mmol/L (3.6-5.0) 03/07/21 14:27 Chloride 100.4 mmol/L (98-107) 03/07/21 14:27 Carbon Dioxide 19 mmol/L (22-30) L 03/07/21 14:27 Anion Gap 21 mmol/L 03/07/21 14:27 BUN 27 mg/dL (7-17) H 03/07/21 14:27 Creatinine 1.6 mg/dL (0.6-1.2) H 03/07/21 14:27 Estimated GFR 39 ml/min 03/07/21 14:27 BUN/Creatinine Ratio 17 % 03/07/21 14:27 Glucose 201 mg/dL (65-100) H 03/07/21 14:27 POC Glucose 215 mg/dL (70-105) H 03/08/21 07:25 Calcium 9.1 mg/dL (8.4-10.2) 03/07/21 14:27 Total Bilirubin 0.30 mg/dL (0.1-1.2) 03/07/21 14:27 AST 22 units/L (5-40) 03/07/21 14:27 ALT 29 units/L (7-56) 03/07/21 14:27 Alkaline Phosphatase 73 units/L (35-129) 03/07/21 14:27 Troponin T 0.036 ng/mL (0.00-0.029) H 03/08/21 04:17 NT-Pro-B Natriuret Pep 9110 pg/mL (0-900) H 03/07/21 14:27 Total Protein 7.2 g/dL (6.3-8.2) 03/07/21 14:27 Albumin 3.9 g/dL (3.9-5) 03/07/21 14:27 Albumin/Globulin Ratio 1.2 % 03/07/21 14:27 Triglycerides 92 mg/dL (2-149) 03/07/21 21:37 Cholesterol 142 mg/dL (50-199) 03/07/21 21:37 LDL Cholesterol Direct 91 mg/dL (50-130) 03/07/21 21:37 HDL Cholesterol 53 mg/dL (40-59) 03/07/21 21:37 Cholesterol/HDL Ratio 2.67 % 03/07/21 21:37 Microbiology: Microbiology 03/08/21 00:09 Peripheral/Venous Blood Culture - Preliminary Culture in Progress 03/08/21 00:16 Peripheral/Venous Blood Culture - Preliminary Culture in Progress Rosa/IV: Voiding Method Toilet Active Medications - Current Medications Current Medications: Generic Name Dose Route Start Last Admin Trade Name Freq PRN Reason Stop Dose Admin Acetaminophen 650 mg 03/07/21 23:40 Acetaminophen 325 Mg Tab PO Q4H PRN Pain MILD(1-3)/Fever >100.5/[place] Albuterol 2.5 mg 03/07/21 23:40 Albuterol 2.5 Mg/3 Ml Nebu IH Q3HRT PRN Shortness Of Breath Aspirin 325 mg 03/08/21 10:00 Aspirin Ec 325 Mg Tab PO QDAY [facility] Dextrose 50 ml 03/07/21 23:40 Dextrose 50% In Water (25gm) 50 Ml Syringe IV Q30MIN PRN Hypoglycemia Protocol Docusate Sodium 100 mg 03/08/21 10:00 Docusate Sodium 100 Mg Cap PO BID [facility]I Famotidine 10 mg 03/08/21 10:00 Famotidine 10 Mg Tab PO BID [facility] Furosemide 40 mg 03/08/21 06:00 03/08/21 06:09 Furosemide 40 Mg/4 Ml Inj IV 40 mg BID@0600,1800 [facility] Administration Guaifenesin 600 mg 03/08/21 01:00 03/08/21 01:35 Guaifenesin Er 600 Mg Tab PO 600 mg BID [facility] Administration Heparin Sodium (Porcine) 5,000 unit 03/08/21 10:00 Heparin 5,000 Unit/1 Ml Vial SUB-Q BID [facility] Hydralazine HCl 75 mg 03/08/21 06:00 03/08/21 06:09 Hydralazine 25 Mg Tab PO 75 mg Q8HR [facility]I Administration Ceftriaxone Sodium 1 gm in 50 mls @ 100 mls/hr 03/08/21 10:00 Rocephin/Ns 1 Gm/50 Ml IV Q24HR [facility] Protocol Insulin Human Lispro 0 unit 03/08/21 07:30 Insulin Lispro 100 Unit/Ml SUB-Q ACHS [facility] Protocol Lisinopril 20 mg 03/08/21 10:00 Lisinopril 20 Mg Tab PO QDAY [facility] Metoprolol Tartrate 12.5 mg 03/08/21 11:00 Metoprolol Tartrate 25 Mg Tab PO BID [facility] Nifedipine 30 mg 03/08/21 10:00 Nifedipine Xl 30 Mg Tab PO Q12HR [facility] Nitroglycerin 0.4 mg 03/07/21 23:42 Nitroglycerin 0.4 Mg Tab Subl SL .Q5MIN PRN Chest Pain Ondansetron HCl 4 mg 03/07/21 23:40 Ondansetron 4 Mg/2 Ml Inj IV Q6H PRN Nausea And Vomiting Pravastatin Sodium 80 mg 03/08/21 22:00 Pravastatin 80 Mg Tab PO QHS [facility] Sodium Chloride 10 ml 03/08/21 10:00 Sodium Chloride 0.9% 10 Ml Flush Syringe IV BID [facility] Sodium Chloride 10 ml 03/07/21 23:40 Sodium Chloride 0.9% 10 Ml Flush Syringe IV PRN PRN LINE FLUSH
[2021-03-08] MEDS: cefTRIAXone/NS 1 GM/50 ML 1 GM/50 ML BAG IV SCH (10:31)
[2021-03-08] MEDS: LISINOPRIL 20 MG TAB PO SCH (10:39)
[2021-03-08] MEDS: ASPIRIN EC 325 MG TAB PO SCH (10:39)
[2021-03-08] MEDS: FAMOTIDINE 10 MG TAB PO SCH ×2 (10:39→22:05)
[2021-03-08] MEDS: HEPARIN 5,000 UNIT/1 ML VIAL SUB-Q SCH ×2 (10:45→22:06)
[2021-03-08] MEDS: NIFEdipine XL 30 MG TAB PO SCH ×2 (10:46→22:05)
[2021-03-08] MEDS: DOCUSATE SODIUM 100 MG CAP PO SCH ×2 (10:51→22:05)
[2021-03-08] MEDS: INSULIN LISPRO 100 UNIT/ML SUB-Q SCH ×4 (10:52→22:06)
[2021-03-08] MEDS: METOPROLOL TARTRATE 25 MG TAB PO SCH ×2 (10:55→22:02)
[2021-03-08 13:24] LABS: Calcium 9.5 mg/dL (8.4-10.2)
--- NOTE | 2021-03-08 17:26 | Ultrasound Report ---
ULTRASOUND RENAL INDICATION / CLINICAL INFORMATION: Acute renal failure. COMPARISON: CT abdomen/pelvis without contrast 05/03/2016. FINDINGS: RIGHT KIDNEY: Length = 9.3 cm. - Echogenicity: Increased. - Cortical Thickness: Normal. - Hydronephrosis: None. - Cyst / Mass: Multiple simple appearing cysts, the largest measuring 1.2 cm within the upper pole. - Stones: None seen. LEFT KIDNEY: Length = 8.7 cm. - Echogenicity: Increased. - Cortical Thickness: Normal. - Hydronephrosis: None. - Cyst / Mass: Multiple simple appearing cysts, the largest measuring 2.3 cm within the upper pole. - Stones: None seen. URINARY BLADDER: Partially collapsed. FREE FLUID: None. ADDITIONAL FINDINGS: None. IMPRESSION: 1. Mildly increased bilateral cortical echogenicity, ultimately nonspecific but can be seen with medi bradley renal disease. 2. Bilateral simple appearing renal cysts, as above. Scribed by: Trinity Claros RDMS, RVT Scribed: 03/08/2021 4:01 PM Signer Name: Remi Cross MD Signed: 03/08/2021 5:21 PM Workstation Name: [id number]
[2021-03-08] MEDS: PRAVASTATIN 80 MG TAB PO SCH (22:05)
[2021-03-09] MEDS: hydrALAZINE 25 MG TAB PO SCH ×3 (05:49→21:20)
[2021-03-09] MEDS: FUROSEMIDE 40 MG/4 ML INJ IV SCH ×2 (05:50→17:10)
[2021-03-09 06:19] LABS: Bilirubin,Urine NEG (Negative); Blood,Urine NEG (Negative); Color,Urine Straw (Yellow); Mucus,Urine FEW /HPF; Protein,Urine <15 mg/dL mg/dL (Negative); Urobilinogen,Urine < 2.0 mg/dL (<2.0); WBC,Urine < 1.0 /HPF (0.0-6.0)
[2021-03-09 07:13] LABS: Creatinine,Urine 49.1 mg/dL (0.1-20.0)
[2021-03-09] MEDS: INSULIN LISPRO 100 UNIT/ML SUB-Q SCH ×4 (08:31→21:21)
[2021-03-09] MEDS: ASPIRIN EC 325 MG TAB PO SCH (09:14)
[2021-03-09] MEDS: FAMOTIDINE 10 MG TAB PO SCH ×2 (09:14→21:20)
[2021-03-09] MEDS: DOCUSATE SODIUM 100 MG CAP PO SCH ×2 (09:14→21:20)
[2021-03-09] MEDS: METOPROLOL TARTRATE 25 MG TAB PO SCH ×2 (09:15→21:20)
[2021-03-09] MEDS: NIFEdipine XL 30 MG TAB PO SCH ×2 (09:15→21:20)
[2021-03-09] MEDS: LISINOPRIL 20 MG TAB PO SCH (09:15)
[2021-03-09] MEDS: guaiFENesin ER 600 MG TAB PO SCH ×2 (09:15→21:20)
[2021-03-09] MEDS: HEPARIN 5,000 UNIT/1 ML VIAL SUB-Q SCH ×2 (09:15→21:20)
[2021-03-09] MEDS: cefTRIAXone/NS 1 GM/50 ML 1 GM/50 ML BAG IV SCH (09:16)
--- NOTE | 2021-03-09 10:08 | Progress Note ---
Assessment and Plan Assessment and plan: Pneumonia -CXR shows Interval development of confluent infiltrate in the right lung base likely represents an infectious process -Blood Cultures no growth x24 hours -Continue IV Abx -Supportive care Acute CHF (new onset) -BNP elevated at 9110 on admission -CXR shows Interval development of small bilateral pleural effusions with associated compressive atelectasis -Continue ASA and LUCIEN, will start on BB -Continue IV Lasix per cardiology recommendation -Echo pending -Cardiology following Elevated troponin -Troponin elevated on admission -Echo pending -Cardiology following Acute hypoxic respiratory failure -Etiology secondary to CHF and pneumonia -Albuterol as needed -Supplemental oxygen as needed HTN -Monitor BP -Continue anti-hypertensive meds DM -With hyperglycemia -BG on admission 201 -POC BG monitoring -SSI coverage prn -HgbA1C pending GI and DVT PPX -On heparin and Pepcid History Interval history: No new issues overnight. Hospitalist Physical - Constitutional Vitals: Temp Pulse Resp BP Pulse Ox 97.9 F 84 16 103/64 97 03/09/21 07:56 03/09/21 09:15 03/09/21 08:00 03/09/21 09:15 03/09/21 08:00 General appearance: Present: no acute distress - EENT Eyes: Present: PERRL, EOM intact ENT: hearing intact, clear oral mucosa, dentition normal - Neck Neck: Present: supple, normal ROM - Respiratory Respiratory effort: normal Respiratory: bilateral: CTA - Cardiovascular Rhythm: regular Heart Sounds: Present: S1 & S2. Absent: gallop, rub - Extremities Extremities: no ischemia, No edema, Full ROM - Abdominal General gastrointestinal: soft, non-tender, non-distended, normal bowel sounds - Integumentary Integumentary: Present: clear, warm, dry - Neurologic Neurologic: CNII-XII intact, moves all extremities HEART Score - HEART Score EKG: Non-specific Age: 45-65 Risk factors: > 3 risk factors or hx of atherosclerotic disease Troponin: Troponin T 0.036 ng/mL (0.00-0.029) H 03/08/21 04:17 Results - Labs CBC & Chem 7: 03/07/21 14:27 03/09/21 05:15 Labs: Laboratory Last Values WBC 8.5 K/mm3 (4.5-11.0) 03/07/21 14:27 RBC 3.69 M/mm3 (3.65-5.03) 03/07/21 14:27 Hgb 11.4 gm/dl (10.1-14.3) 03/07/21 14:27 Hct 34.9 % (30.3-42.9) 03/07/21 14:27 MCV 95 fl (79-97) 03/07/21 14:27 MCH 31 pg (28-32) 03/07/21 14:27 MCHC 33 % (30-34) 03/07/21 14:27 RDW 13.8 % (13.2-15.2) 03/07/21 14:27 Plt Count 412 K/mm3 (140-440) 03/07/21 14:27 Lymph % (Auto) 14.7 % (13.4-35.0) 03/07/21 14:27 [place] % (Auto) 8.6 % (0.0-7.3) H 03/07/21 14:27 Eos % (Auto) 1.1 % (0.0-4.3) 03/07/21 14:27 Baso % (Auto) 0.9 % (0.0-1.8) 03/07/21 14:27 Lymph # (Auto) 1.3 K/mm3 (1.2-5.4) 03/07/21 14:27 [place] # (Auto) 0.7 K/mm3 (0.0-0.8) 03/07/21 14:27 Eos # (Auto) 0.1 K/mm3 (0.0-0.4) 03/07/21 14:27 Baso # (Auto) 0.1 K/mm3 (0.0-0.1) 03/07/21 14:27 Seg Neutrophils % 74.7 % (40.0-70.0) H 03/07/21 14:27 Seg Neutrophils # 6.4 K/mm3 (1.8-7.7) 03/07/21 14:27 Sodium 136 mmol/L (137-145) L 03/09/21 05:15 Potassium 3.9 mmol/L (3.6-5.0) 03/09/21 05:15 Chloride 98.4 mmol/L (98-107) 03/09/21 05:15 Carbon Dioxide 23 mmol/L (22-30) 03/09/21 05:15 Anion Gap 19 mmol/L 03/09/21 05:15 BUN 38 mg/dL (7-17) H 03/09/21 05:15 Creatinine 2.0 mg/dL (0.6-1.2) H 03/09/21 05:15 Estimated GFR 30 ml/min 03/09/21 05:15 BUN/Creatinine Ratio 19 % 03/09/21 05:15 Glucose 138 mg/dL (65-100) H 03/09/21 05:15 POC Glucose 217 mg/dL (70-105) H 03/09/21 08:01 Calcium 9.0 mg/dL (8.4-10.2) 03/09/21 05:15 Total Bilirubin 0.30 mg/dL (0.1-1.2) 03/07/21 14:27 AST 22 units/L (5-40) 03/07/21 14:27 ALT 29 units/L (7-56) 03/07/21 14:27 Alkaline Phosphatase 73 units/L (35-129) 03/07/21 14:27 Troponin T 0.036 ng/mL (0.00-0.029) H 03/08/21 04:17 NT-Pro-B Natriuret Pep 9110 pg/mL (0-900) H 03/07/21 14:27 Total Protein 7.2 g/dL (6.3-8.2) 03/07/21 14:27 Albumin 3.9 g/dL (3.9-5) 03/07/21 14:27 Albumin/Globulin Ratio 1.2 % 03/07/21 14:27 Triglycerides 92 mg/dL (2-149) 03/07/21 21:37 Cholesterol 142 mg/dL (50-199) 03/07/21 21:37 LDL Cholesterol Direct 91 mg/dL (50-130) 03/07/21 21:37 HDL Cholesterol 53 mg/dL (40-59) 03/07/21 21:37 Cholesterol/HDL Ratio 2.67 % 03/07/21 21:37 Urine Color Straw (Yellow) 03/09/21 06:00 Urine Turbidity Clear (Clear) 03/09/21 06:00 Urine pH 6.0 (5.0-7.0) 03/09/21 06:00 Ur Specific [place] 1.009 (1.003-1.030) 03/09/21 06:00 Urine Protein <15 mg/dl mg/dL (Negative) 03/09/21 06:00 Urine Glucose (UA) Neg mg/dL (Negative) 03/09/21 06:00 Urine Ketones Neg mg/dL (Negative) 03/09/21 06:00 Urine Blood Neg (Negative) 03/09/21 06:00 Urine Nitrite Neg (Negative) 03/09/21 06:00 Urine Bilirubin Neg (Negative) 03/09/21 06:00 Urine Urobilinogen < 2.0 mg/dL (<2.0) 03/09/21 06:00 Ur Leukocyte Esterase Neg (Negative) 03/09/21 06:00 Urine WBC (Auto) < 1.0 /HPF (0.0-6.0) 03/09/21 06:00 Urine RBC (Auto) 1.0 /HPF (0.0-6.0) 03/09/21 06:00 U Epithel Cells (Auto) 1.0 /HPF (0-13.0) 03/09/21 06:00 Urine Mucus Few /HPF 03/09/21 06:00 Urine Creatinine 49.1 mg/dL (0.1-20.0) H 03/09/21 06:00 Urine Sodium 97 mmol/L 03/09/21 06:00 Nasal Screen MRSA (PCR) Negative (Negative) 03/08/21 Unknown Microbiology: Microbiology 03/08/21 00:16 Peripheral/Venous Blood Culture - Preliminary NO GROWTH AFTER 24 HOURS 03/08/21 00:09 Peripheral/Venous Blood Culture - Preliminary NO GROWTH AFTER 24 HOURS Rosa/IV: Voiding Method Toilet Active Medications - Current Medications Current Medications: Generic Name Dose Route Start Last Admin Trade Name Freq PRN Reason Stop Dose Admin Acetaminophen 650 mg 03/07/21 23:40 Acetaminophen 325 Mg Tab PO Q4H PRN Pain MILD(1-3)/Fever >100.5/[place] Albuterol 2.5 mg 03/07/21 23:40 Albuterol 2.5 Mg/3 Ml Nebu IH Q3HRT PRN Shortness Of Breath Aspirin 325 mg 03/08/21 10:00 03/09/21 09:14 Aspirin Ec 325 Mg Tab PO 325 mg QDAY [facility] Administration Dextrose 50 ml 03/07/21 23:40 Dextrose 50% In Water (25gm) 50 Ml Syringe IV Q30MIN PRN Hypoglycemia Protocol Docusate Sodium 100 mg 03/08/21 10:00 03/09/21 09:14 Docusate Sodium 100 Mg Cap PO 100 mg BID [facility] Administration Famotidine 10 mg 03/08/21 10:00 03/09/21 09:14 Famotidine 10 Mg Tab PO 10 mg BID [facility] Administration Furosemide 40 mg 03/08/21 06:00 03/09/21 05:50 Furosemide 40 Mg/4 Ml Inj IV 40 mg BID@0600,1800 [facility] Administration Guaifenesin 600 mg 03/08/21 01:00 03/09/21 09:15 Guaifenesin Er 600 Mg Tab PO 600 mg BID [facility] Administration Heparin Sodium (Porcine) 5,000 unit 03/08/21 10:00 03/09/21 09:15 Heparin 5,000 Unit/1 Ml Vial SUB-Q 5,000 unit BID [facility] Administration Hydralazine HCl 75 mg 03/08/21 06:00 03/09/21 05:49 Hydralazine 25 Mg Tab PO 75 mg Q8HR [facility] Administration Ceftriaxone Sodium 1 gm in 50 mls @ 100 mls/hr 03/08/21 10:00 03/09/21 09:16 Rocephin/Ns 1 Gm/50 Ml IV 100 mls/hr Q24HR [facility] Administration Protocol Insulin Human Lispro 0 unit 03/08/21 07:30 03/09/21 08:31 Insulin Lispro 100 Unit/Ml SUB-Q 3 unit ACHS [facility] Administration Protocol Lisinopril 20 mg 03/08/21 10:00 03/09/21 09:15 Lisinopril 20 Mg Tab PO 20 mg QDAY [facility] Administration Metoprolol Tartrate 12.5 mg 03/08/21 11:00 03/09/21 09:15 Metoprolol Tartrate 25 Mg Tab PO 12.5 mg BID [facility] Administration Nifedipine 30 mg 03/08/21 10:00 03/09/21 09:15 Nifedipine Xl 30 Mg Tab PO 30 mg Q12HR [facility] Administration Nitroglycerin 0.4 mg 03/07/21 23:42 Nitroglycerin 0.4 Mg Tab Subl SL .Q5MIN PRN Chest Pain Ondansetron HCl 4 mg 03/07/21 23:40 Ondansetron 4 Mg/2 Ml Inj IV Q6H PRN Nausea And Vomiting Pravastatin Sodium 80 mg 03/08/21 22:00 03/08/21 22:05 Pravastatin 80 Mg Tab PO 80 mg QHS [facility]I Administration Sodium Chloride 10 ml 03/08/21 10:00 03/09/21 09:16 Sodium Chloride 0.9% 10 Ml Flush Syringe IV 10 ml BID [facility]I Administration Sodium Chloride 10 ml 03/07/21 23:40 Sodium Chloride 0.9% 10 Ml Flush Syringe IV PRN PRN LINE FLUSH
--- NOTE | 2021-03-09 11:54 | Progress Note ---
Assessment and Plan 1. Acute kidney injury: ANTONIO in the setting of PNA and ?CHF. Likely ATN. UA bland. Renal US negative for hydro. Monitor renal function. Avoid nephrotoxic agents. Meds dosage based on GFR. 2. FEN: Anion-gap metabolic acidosis, monitor. Monitor lytes and volume status. 3. Pneumonia: IV antibiotics. Follow culture result. 4. CHF // Elevated troponin: IV lasix. Followed by Cards. 5. DM type 2. 6. Hypertension: BP controlled. Subjective: Patient was seen and examined at the bedside. Doing better today. Examination: General appearance: well-developed, appears stated age, not in distress HEENT: atraumatic, SOUMYA Neck: trachea midline Respiratory: ctab Heart: S1S2, regular, no murmur Abdomen: soft, bowel sounds heard, NT Integumentary: no obvious rash Neurologic: AO, non-focal Ext: no edema Subjective Date of service: 03/09/21 Objective - Vital Signs Vital signs: Vital Signs - 12hr 03/09/21 03/09/21 03/09/21 03:19 05:49 07:00 Temperature 97.6 F Pulse Rate 89 84 87 Respiratory 18 Rate Blood Pressure 125/75 125/75 O2 Sat by Pulse 96 Oximetry 03/09/21 03/09/21 03/09/21 07:56 08:00 09:15 Temperature 97.9 F Pulse Rate 84 84 Respiratory 16 16 Rate Blood Pressure 103/56 103/64 O2 Sat by Pulse 96 97 Oximetry 03/09/21 10:33 Temperature Pulse Rate Respiratory Rate Blood Pressure O2 Sat by Pulse 98 Oximetry - Lab 03/07/21 14:27 03/09/21 05:15 Most recent lab results Calcium 9.0 mg/dL (8.4-10.2) 03/09/21 05:15 Urine Creatinine 49.1 mg/dL (0.1-20.0) H 03/09/21 06:00 Urine Sodium 97 mmol/L 03/09/21 06:00 Medications & Allergies - Medications Allergies/Adverse Reactions: Allergies No Known Allergies Allergy (Verified 11/10/13 15:34) Home Medications: Home Medications Medication Instructions Recorded Confirmed Last Taken Type lisinopriL [Zestril TAB] 20 mg PO QDAY #30 tablet 11/12/13 03/08/21 03/07/21 Rx Bisoprolol/Hctz (Nf) [Ziac 5/6.25 1 tab PO QDAY 05/28/16 03/08/21 03/07/21 History (Nf)] Ibuprofen [Motrin 800 MG tab] 800 mg PO TID 05/28/16 03/08/21 08/04/16 History 400 MG Multivit-Min/FA/Lycopen/Lutein 1 each PO QDAY 05/28/16 03/08/21 03/06/21 History [Centrum Silver Tablet] [place] 25 mg PO DAILY 05/31/16 03/08/21 08/05/16 History HYDROcodone/APAP 5-325 [[place] 1 - 2 each PO Q4HR PRN #30 tablet 08/06/16 03/08/21 Unknown Rx 5-325 mg TAB] Aspirin EC [Ecotrin] 325 mg PO QDAY #30 tablet 04/02/20 03/08/21 03/06/21 Rx NIFEdipine XL [Procardia Xl] 30 mg PO Q12HR #60 tablet 04/02/20 03/08/21 03/07/21 Rx Pravastatin [Pravachol] 80 mg PO QHS #30 tablet 04/02/20 03/08/21 03/07/21 Rx hydrALAZINE [Apresoline TAB] 75 mg PO Q8HR #90 tablet 04/02/20 03/08/21 03/06/21 Rx Active Medications: Generic Name Dose Route Start Last Admin Trade Name Freq PRN Reason Stop Dose Admin Acetaminophen 650 mg 03/07/21 23:40 Acetaminophen 325 Mg Tab PO Q4H PRN Pain MILD(1-3)/Fever >100.5/[place] Albuterol 2.5 mg 03/07/21 23:40 Albuterol 2.5 Mg/3 Ml Nebu IH Q3HRT PRN Shortness Of Breath Aspirin 325 mg 03/08/21 10:00 03/09/21 09:14 Aspirin Ec 325 Mg Tab PO 325 mg QDAY RANDI Administration Dextrose 50 ml 03/07/21 23:40 Dextrose 50% In Water (25gm) 50 Ml Syringe IV Q30MIN PRN Hypoglycemia Protocol Docusate Sodium 100 mg 03/08/21 10:00 03/09/21 09:14 Docusate Sodium 100 Mg Cap PO 100 mg BID RANDI Administration Famotidine 10 mg 03/08/21 10:00 03/09/21 09:14 Famotidine 10 Mg Tab PO 10 mg BID RANDI Administration Furosemide 40 mg 03/08/21 06:00 03/09/21 05:50 Furosemide 40 Mg/4 Ml Inj IV 40 mg BID@0600,1800 RANDI Administration Guaifenesin 600 mg 03/08/21 01:00 03/09/21 09:15 Guaifenesin Er 600 Mg Tab PO 600 mg BID RANDI Administration Heparin Sodium (Porcine) 5,000 unit 03/08/21 10:00 03/09/21 09:15 Heparin 5,000 Unit/1 Ml Vial SUB-Q 5,000 unit BID RANDI Administration Hydralazine HCl 75 mg 03/08/21 06:00 03/09/21 05:49 Hydralazine 25 Mg Tab PO 75 mg Q8HR RANDI Administration Ceftriaxone Sodium 1 gm in 50 mls @ 100 mls/hr 03/08/21 10:00 03/09/21 09:16 Rocephin/Ns 1 Gm/50 Ml IV 03/12/21 10:29 100 mls/hr Q24HR RANDI Administration Protocol Insulin Human Lispro 0 unit 03/08/21 07:30 03/09/21 08:31 Insulin Lispro 100 Unit/Ml SUB-Q 3 unit ACHS RANDI Administration Protocol Lisinopril 20 mg 03/08/21 10:00 03/09/21 09:15 Lisinopril 20 Mg Tab PO 20 mg QDAY RANDI Administration Metoprolol Tartrate 12.5 mg 03/08/21 11:00 03/09/21 09:15 Metoprolol Tartrate 25 Mg Tab PO 12.5 mg BID RANDI Administration Nifedipine 30 mg 03/08/21 10:00 03/09/21 09:15 Nifedipine Xl 30 Mg Tab PO 30 mg Q12HR RANDI Administration Nitroglycerin 0.4 mg 03/07/21 23:42 Nitroglycerin 0.4 Mg Tab Subl SL .Q5MIN PRN Chest Pain Ondansetron HCl 4 mg 03/07/21 23:40 Ondansetron 4 Mg/2 Ml Inj IV Q6H PRN Nausea And Vomiting Pravastatin Sodium 80 mg 03/08/21 22:00 03/08/21 22:05 Pravastatin 80 Mg Tab PO 80 mg QHS RANDI Administration Sodium Chloride 10 ml 03/08/21 10:00 03/09/21 09:16 Sodium Chloride 0.9% 10 Ml Flush Syringe IV 10 ml BID RANDI Administration Sodium Chloride 10 ml 03/07/21 23:40 Sodium Chloride 0.9% 10 Ml Flush Syringe IV PRN PRN LINE FLUSH
--- NOTE | 2021-03-09 16:59 | Progress Note ---
Assessment and Plan Echo reviewed - EF 15-20%, LV mod dilated, mild diastolic dysfxn, mild MR, mod L pleural effusion. Continue IV Lasix BID with strict I/Os. Minimal UOP noted/24 hrs. May need to consider increasing dosage if ok from a Nephro standpoint. Closely monitor renal indices and electrolytes. Continue BB. No ACEI/ARB/ARNI for now due to renal fxn. Minimal CE elevation noted in the setting of acute HF and ANTONIO. Pt denies chest pain. No acute ischemic changes on ECG. Plan for ischemic eval when stable, hopefully Friday. Will ideally aim for c ardiac catheterization; however, if renal fxn is not stable, may consider Lexiscan stress MPI instead. Pt seen in conjunction with Dr. David Sanford, who agrees with the assessment and plan of care. - Patient Problems (1) Pleural effusion Current Visit: Yes Status: Acute (2) Acute HFrEF (heart failure with reduced ejection fraction) Current Visit: Yes Status: Acute (3) Cardiomyopathy Current Visit: Yes Status: Acute (4) ANTONIO (acute kidney injury) Current Visit: Yes Status: Acute (5) Elevated troponin Current Visit: Yes Status: Acute (6) HTN (hypertension) Current Visit: Yes Status: Chronic Qualifiers: Hypertension type: essential hypertension Qualified Code(s): I10 - Essential (primary) hypertension (7) HLD (hyperlipidemia) Current Visit: Yes Status: Chronic Qualifiers: Hyperlipidemia type: mixed hyperlipidemia Qualified Code(s): E78.2 - Mixed hyperlipidemia (8) DM2 (diabetes mellitus, type 2) Current Visit: Yes Status: Chronic (9) Carotid artery stenosis Current Visit: Yes Status: Chronic (10) Chronic back pain Current Visit: Yes Status: Chronic Subjective Date of service: 03/09/21 Principal diagnosis: Acute HFrEF Interval history: Resting comfortably in bed. Still SOB w/exertion but improving. No additional complaints. Tele reviewed - SR 70-80s w/PVCs, no events overnight. Objective Last Vital Signs Temp 97.9 F 03/09/21 15:33 Pulse 83 03/09/21 15:33 Resp 16 03/09/21 15:33 BP 105/66 03/09/21 15:33 Pulse Ox 97 03/09/21 15:33 - Physical Examination General: No Apparent Distress HEENT: Positive: EOMI, Normocephaly, Mucus Membranes Moist Neck: Positive: neck supple, trachea midline. Negative: JVD/HJR Cardiac: Positive: Reg Rate and Rhythm, S1/S2. Negative: Audible Murmur Lungs: Positive: Decreased Breath Sounds (bases) Neuro: Positive: Grossly Intact Abdomen: Positive: Soft. Negative: Tender Skin: Negative: Rash Musculoskeletal: No Pain, Normal Range of Motion Extremities: Present: lower extr. pulses. Absent: edema - Labs and Meds Comprehensive Metabolic Panel 03/09/21 Range/Units 05:15 Sodium 136 L (137-145) mmol/L Potassium 3.9 (3.6-5.0) mmol/L Chloride 98.4 (98-107) mmol/L Carbon Dioxide 23 (22-30) mmol/L BUN 38 H (7-17) mg/dL Creatinine 2.0 H (0.6-1.2) mg/dL Glucose 138 H (65-100) mg/dL Calcium 9.0 (8.4-10.2) mg/dL - Imaging and Cardiology EKG: report reviewed, image reviewed Echo: report reviewed (03/08/2021 - EF 15-20%, LV mod dilated, mild diastolic dysfxn, mild MR, mod L pleural effusion), other (03/2020 - EF 55-60%, mild concentric LVH, trace MR, trace AR, trace TR) - Telemetry EKG Rhythm: Sinus Rhythm - EKG Sinus rhythms and dysrhythmias: sinus rhythm Chamber hypertrophy or enlargement: left ventricular hypertro Repolarization changes or abnormalities: nonspecific abnormality, ST segment, and/or T wave
[2021-03-09] MEDS: PRAVASTATIN 80 MG TAB PO SCH (21:20)
[2021-03-10] MEDS: FUROSEMIDE 40 MG/4 ML INJ IV SCH (05:38)
[2021-03-10] MEDS: hydrALAZINE 25 MG TAB PO SCH ×3 (05:38→21:50)
[2021-03-10 06:06] LABS: Calcium 8.7 mg/dL (8.4-10.2)
[2021-03-10] MEDS: INSULIN LISPRO 100 UNIT/ML SUB-Q SCH ×4 (09:16→21:49)
[2021-03-10] MEDS: guaiFENesin ER 600 MG TAB PO SCH ×2 (09:17→21:50)
[2021-03-10] MEDS: HEPARIN 5,000 UNIT/1 ML VIAL SUB-Q SCH ×2 (09:17→21:51)
[2021-03-10] MEDS: DOCUSATE SODIUM 100 MG CAP PO SCH ×2 (09:17→21:50)
[2021-03-10] MEDS: NIFEdipine XL 30 MG TAB PO SCH ×2 (09:17→21:50)
[2021-03-10] MEDS: FAMOTIDINE 10 MG TAB PO SCH ×2 (09:18→21:50)
[2021-03-10] MEDS: ASPIRIN EC 325 MG TAB PO SCH (09:18)
[2021-03-10] MEDS: METOPROLOL TARTRATE 25 MG TAB PO SCH ×2 (09:18→21:50)
[2021-03-10] MEDS: cefTRIAXone/NS 1 GM/50 ML 1 GM/50 ML BAG IV SCH (09:23)
--- NOTE | 2021-03-10 09:53 | Progress Note ---
Assessment and Plan Assessment and plan: Pneumonia -CXR shows Interval development of confluent infiltrate in the right lung base likely represents an infectious process -Blood Cultures no growth x 48 hours -Continue IV Abx -Supportive care Acute CHF (new onset) -BNP elevated at 9110 on admission -CXR showed Interval development of small bilateral pleural effusions with associated compressive atelectasis -Continue ASA and LUCIEN, will start on BB -Continue IV Lasix per cardiology recommendation -Echo revealed EF 15-20%, LV mod dilated, mild diastolic dysfxn, mild MR, mod L pleural effusion. Elevated troponin -Troponin elevated on admission Acute hypoxic respiratory failure -Etiology secondary to CHF and pneumonia -Albuterol as needed -Supplemental oxygen as needed HTN -Monitor BP -Continue anti-hypertensive meds DM -With hyperglycemia -BG on admission 201 -POC BG monitoring -SSI coverage prn -HgbA1C pending GI and DVT PPX -On heparin and Pepcid 03/10/2021. Patient with increasing creatinine. Renal ultrasound negative for h ydronephrosis. Cardiology started Lasix twice daily. No LUCIEN inhibitor or ARB secondary to renal function. Cardiology plans for ischemic evaluation on Friday if stable. Continue IV antibiotics. Follow-up chest x-ray in a.m. History Interval history: No new issues overnight. Hospitalist Physical - Constitutional Vitals: Temp Pulse Resp BP Pulse Ox 97.8 F 88 18 123/65 95 03/10/21 03:54 03/10/21 09:18 03/10/21 08:00 03/10/21 09:18 03/10/21 09:39 General appearance: Present: no acute distress - EENT Eyes: Present: PERRL, EOM intact ENT: hearing intact, clear oral mucosa, dentition normal - Neck Neck: Present: supple, normal ROM - Respiratory Respiratory effort: normal Respiratory: bilateral: CTA - Cardiovascular Rhythm: regular Heart Sounds: Present: S1 & S2. Absent: gallop, rub - Extremities Extremities: no ischemia, No edema, Full ROM - Abdominal General gastrointestinal: soft, non-tender, non-distended, normal bowel sounds - Integumentary Integumentary: Present: clear, warm, dry - Neurologic Neurologic: CNII-XII intact, moves all extremities HEART Score - HEART Score EKG: Non-specific Age: 45-65 Risk factors: > 3 risk factors or hx of atherosclerotic disease Troponin: Troponin T 0.036 ng/mL (0.00-0.029) H 03/08/21 04:17 Results - Labs CBC & Chem 7: 03/07/21 14:27 03/10/21 05:02 Labs: Laboratory Last Values WBC 8.5 K/mm3 (4.5-11.0) 03/07/21 14:27 RBC 3.69 M/mm3 (3.65-5.03) 03/07/21 14:27 Hgb 11.4 gm/dl (10.1-14.3) 03/07/21 14:27 Hct 34.9 % (30.3-42.9) 03/07/21 14:27 MCV 95 fl (79-97) 03/07/21 14:27 MCH 31 pg (28-32) 03/07/21 14:27 MCHC 33 % (30-34) 03/07/21 14:27 RDW 13.8 % (13.2-15.2) 03/07/21 14:27 Plt Count 412 K/mm3 (140-440) 03/07/21 14:27 Lymph % (Auto) 14.7 % (13.4-35.0) 03/07/21 14:27 Josephine % (Auto) 8.6 % (0.0-7.3) H 03/07/21 14:27 Eos % (Auto) 1.1 % (0.0-4.3) 03/07/21 14:27 Baso % (Auto) 0.9 % (0.0-1.8) 03/07/21 14:27 Lymph # (Auto) 1.3 K/mm3 (1.2-5.4) 03/07/21 14:27 Josephine # (Auto) 0.7 K/mm3 (0.0-0.8) 03/07/21 14:27 Eos # (Auto) 0.1 K/mm3 (0.0-0.4) 03/07/21 14:27 Baso # (Auto) 0.1 K/mm3 (0.0-0.1) 03/07/21 14:27 Seg Neutrophils % 74.7 % (40.0-70.0) H 03/07/21 14:27 Seg Neutrophils # 6.4 K/mm3 (1.8-7.7) 03/07/21 14:27 Sodium 134 mmol/L (137-145) L 03/10/21 05:02 Potassium 4.1 mmol/L (3.6-5.0) 03/10/21 05:02 Chloride 100.1 mmol/L (98-107) 03/10/21 05:02 Carbon Dioxide 20 mmol/L (22-30) L 03/10/21 05:02 Anion Gap 18 mmol/L 03/10/21 05:02 BUN 52 mg/dL (7-17) H 03/10/21 05:02 Creatinine 2.3 mg/dL (0.6-1.2) H 03/10/21 05:02 Estimated GFR 26 ml/min 03/10/21 05:02 BUN/Creatinine Ratio 23 % 03/10/21 05:02 Glucose 138 mg/dL (65-100) H 03/10/21 05:02 POC Glucose 150 mg/dL (70-105) H 03/10/21 07:40 Calcium 8.7 mg/dL (8.4-10.2) 03/10/21 05:02 Total Bilirubin 0.30 mg/dL (0.1-1.2) 03/07/21 14:27 AST 22 units/L (5-40) 03/07/21 14:27 ALT 29 units/L (7-56) 03/07/21 14:27 Alkaline Phosphatase 73 units/L (35-129) 03/07/21 14:27 Troponin T 0.036 ng/mL (0.00-0.029) H 03/08/21 04:17 NT-Pro-B Natriuret Pep 9110 pg/mL (0-900) H 03/07/21 14:27 Total Protein 7.2 g/dL (6.3-8.2) 03/07/21 14:27 Albumin 3.9 g/dL (3.9-5) 03/07/21 14:27 Albumin/Globulin Ratio 1.2 % 03/07/21 14:27 Triglycerides 92 mg/dL (2-149) 03/07/21 21:37 Cholesterol 142 mg/dL (50-199) 03/07/21 21:37 LDL Cholesterol Direct 91 mg/dL (50-130) 03/07/21 21:37 HDL Cholesterol 53 mg/dL (40-59) 03/07/21 21:37 Cholesterol/HDL Ratio 2.67 % 03/07/21 21:37 Urine Color Straw (Yellow) 03/09/21 06:00 Urine Turbidity Clear (Clear) 03/09/21 06:00 Urine pH 6.0 (5.0-7.0) 03/09/21 06:00 Ur Specific [place] 1.009 (1.003-1.030) 03/09/21 06:00 Urine Protein <15 mg/dl mg/dL (Negative) 03/09/21 06:00 Urine Glucose (UA) Neg mg/dL (Negative) 03/09/21 06:00 Urine Ketones Neg mg/dL (Negative) 03/09/21 06:00 Urine Blood Neg (Negative) 03/09/21 06:00 Urine Nitrite Neg (Negative) 03/09/21 06:00 Urine Bilirubin Neg (Negative) 03/09/21 06:00 Urine Urobilinogen < 2.0 mg/dL (<2.0) 03/09/21 06:00 Ur Leukocyte Esterase Neg (Negative) 03/09/21 06:00 Urine WBC (Auto) < 1.0 /HPF (0.0-6.0) 03/09/21 06:00 Urine RBC (Auto) 1.0 /HPF (0.0-6.0) 03/09/21 06:00 U Epithel Cells (Auto) 1.0 /HPF (0-13.0) 03/09/21 06:00 Urine Mucus Few /HPF 03/09/21 06:00 Urine Creatinine 49.1 mg/dL (0.1-20.0) H 03/09/21 06:00 Urine Sodium 97 mmol/L 03/09/21 06:00 Nasal Screen MRSA (PCR) Negative (Negative) 03/08/21 Unknown Microbiology: Microbiology 03/08/21 00:16 Peripheral/Venous Blood Culture - Preliminary NO GROWTH AFTER 48 HOURS 03/08/21 00:09 Peripheral/Venous Blood Culture - Preliminary NO GROWTH AFTER 48 HOURS Rosa/IV: Voiding Method Toilet Active Medications - Current Medications Current Medications: Generic Name Dose Route Start Last Admin Trade Name Freq PRN Reason Stop Dose Admin Acetaminophen 650 mg 03/07/21 23:40 Acetaminophen 325 Mg Tab PO Q4H PRN Pain MILD(1-3)/Fever >100.5/[place] Albuterol 2.5 mg 03/07/21 23:40 Albuterol 2.5 Mg/3 Ml Nebu IH Q3HRT PRN Shortness Of Breath Aspirin 325 mg 03/08/21 10:00 03/10/21 09:18 Aspirin Ec 325 Mg Tab PO 325 mg QDAY RANDI Administration Dextrose 50 ml 03/07/21 23:40 Dextrose 50% In Water (25gm) 50 Ml Syringe IV Q30MIN PRN Hypoglycemia Protocol Docusate Sodium 100 mg 03/08/21 10:00 03/10/21 09:17 Docusate Sodium 100 Mg Cap PO 100 mg BID RANDI Administration Famotidine 10 mg 03/08/21 10:00 03/10/21 09:18 Famotidine 10 Mg Tab PO 10 mg BID RANDI Administration Furosemide 40 mg 03/08/21 06:00 03/10/21 05:38 Furosemide 40 Mg/4 Ml Inj IV 40 mg BID@0600,1800 RANDI Administration Guaifenesin 600 mg 03/08/21 01:00 03/10/21 09:17 Guaifenesin Er 600 Mg Tab PO 600 mg BID RANDI Administration Heparin Sodium (Porcine) 5,000 unit 03/08/21 10:00 03/10/21 09:17 Heparin 5,000 Unit/1 Ml Vial SUB-Q 5,000 unit BID RANDI Administration Hydralazine HCl 75 mg 03/08/21 06:00 03/10/21 05:38 Hydralazine 25 Mg Tab PO 75 mg Q8HR RANDI Administration Ceftriaxone Sodium 1 gm in 50 mls @ 100 mls/hr 03/08/21 10:00 03/10/21 09:23 Rocephin/Ns 1 Gm/50 Ml IV 03/12/21 10:29 100 mls/hr Q24HR RANDI Administration Protocol Insulin Human Lispro 0 unit 03/08/21 07:30 03/10/21 09:16 Insulin Lispro 100 Unit/Ml SUB-Q 2 unit ACHS RANDI Administration Protocol Metoprolol Tartrate 25 mg 03/09/21 22:00 03/10/21 09:18 Metoprolol Tartrate 25 Mg Tab PO 25 mg BID RANDI Administration Nifedipine 30 mg 03/08/21 10:00 03/10/21 09:17 Nifedipine Xl 30 Mg Tab PO 30 mg Q12HR RANDI Administration Nitroglycerin 0.4 mg 03/07/21 23:42 Nitroglycerin 0.4 Mg Tab Subl SL .Q5MIN PRN Chest Pain Ondansetron HCl 4 mg 03/07/21 23:40 Ondansetron 4 Mg/2 Ml Inj IV Q6H PRN Nausea And Vomiting Pravastatin Sodium 80 mg 03/08/21 22:00 03/09/21 21:20 Pravastatin 80 Mg Tab PO 80 mg QHS RANDI Administration Sodium Chloride 10 ml 03/08/21 10:00 03/10/21 09:18 Sodium Chloride 0.9% 10 Ml Flush Syringe IV 10 ml BID RANDI Administration Sodium Chloride 10 ml 03/07/21 23:40 Sodium Chloride 0.9% 10 Ml Flush Syringe IV PRN PRN LINE FLUSH
--- NOTE | 2021-03-10 10:09 | Progress Note ---
Assessment and Plan 1. Acute kidney injury: ANTONIO in the setting of PNA and ?CHF. Likely ATN. UA bland. Renal US negative for hydro. Monitor renal function. Creatinine level increasing. Diuretics stopped. Avoid nephrotoxic agents. Meds dosage based on GFR. 2. FEN: Anion-gap metabolic acidosis, monitor. Monitor lytes and volume status. 3. Pneumonia: IV antibiotics. Follow culture result. 4. CHF // Elevated troponin: Followed by Cards. 5. DM type 2. 6. Hypertension: BP controlled. Subjective: Patient was seen and examined at the bedside. Doing better. Examination: General appearance: well-developed, appears stated age, not in distress HEENT: atraumatic, SOUMYA Neck: trachea midline Respiratory: ctab Heart: S1S2, regular, no murmur Abdomen: soft, bowel sounds heard, NT Integumentary: no obvious rash Neurologic: AO, non-focal Ext: no edema Subjective Date of service: 03/10/21 Principal diagnosis: Acute HFrEF Objective - Vital Signs Vital signs: Vital Signs - 12hr 03/09/21 03/10/21 03/10/21 23:22 03:54 05:38 Temperature 98.4 F 97.8 F Pulse Rate 76 80 80 Respiratory 16 18 Rate Blood Pressure 102/65 121/71 121/71 O2 Sat by Pulse 97 99 Oximetry 03/10/21 03/10/21 03/10/21 08:00 09:18 09:39 Temperature Pulse Rate 88 Respiratory 18 Rate Blood Pressure 123/65 O2 Sat by Pulse 97 95 Oximetry - Lab 03/07/21 14:27 03/10/21 05:02 Most recent lab results Calcium 8.7 mg/dL (8.4-10.2) 03/10/21 05:02 Urine Creatinine 49.1 mg/dL (0.1-20.0) H 03/09/21 06:00 Urine Sodium 97 mmol/L 03/09/21 06:00 Medications & Allergies - Medications Allergies/Adverse Reactions: Allergies No Known Allergies Allergy (Verified 11/10/13 15:34) Home Medications: Home Medications Medication Instructions Recorded Confirmed Last Taken Type lisinopriL [Zestril TAB] 20 mg PO QDAY #30 tablet 11/12/13 03/08/21 03/07/21 Rx Bisoprolol/Hctz (Nf) [[place] 5/6.25 1 tab PO QDAY 05/28/16 03/08/21 03/07/21 History (Nf)] Ibuprofen [Motrin 800 MG tab] 800 mg PO TID 05/28/16 03/08/21 08/04/16 History 400 MG Multivit-Min/FA/Lycopen/Lutein 1 each PO QDAY 05/28/16 03/08/21 03/06/21 History [Centrum Silver Tablet] [place] 25 mg PO DAILY 05/31/16 03/08/21 08/05/16 History HYDROcodone/APAP 5-325 [[place] 1 - 2 each PO Q4HR PRN #30 tablet 08/06/16 03/08/21 Unknown Rx 5-325 mg TAB] Aspirin EC [Ecotrin] 325 mg PO QDAY #30 tablet 04/02/20 03/08/21 03/06/21 Rx NIFEdipine XL [Procardia Xl] 30 mg PO Q12HR #60 tablet 04/02/20 03/08/21 03/07/21 Rx Pravastatin [Pravachol] 80 mg PO QHS #30 tablet 04/02/20 03/08/21 03/07/21 Rx hydrALAZINE [Apresoline TAB] 75 mg PO Q8HR #90 tablet 04/02/20 03/08/21 03/06/21 Rx Active Medications: Generic Name Dose Route Start Last Admin Trade Name Freq PRN Reason Stop Dose Admin Acetaminophen 650 mg 03/07/21 23:40 Acetaminophen 325 Mg Tab PO Q4H PRN Pain MILD(1-3)/Fever >100.5/[place] Albuterol 2.5 mg 03/07/21 23:40 Albuterol 2.5 Mg/3 Ml Nebu IH Q3HRT PRN Shortness Of Breath Aspirin 325 mg 03/08/21 10:00 03/10/21 09:18 Aspirin Ec 325 Mg Tab PO 325 mg QDAY RANDI Administration Dextrose 50 ml 03/07/21 23:40 Dextrose 50% In Water (25gm) 50 Ml Syringe IV Q30MIN PRN Hypoglycemia Protocol Docusate Sodium 100 mg 03/08/21 10:00 03/10/21 09:17 Docusate Sodium 100 Mg Cap PO 100 mg BID RANDI Administration Famotidine 10 mg 03/08/21 10:00 03/10/21 09:18 Famotidine 10 Mg Tab PO 10 mg BID RANDI Administration Furosemide 40 mg 03/08/21 06:00 03/10/21 05:38 Furosemide 40 Mg/4 Ml Inj IV 40 mg BID@0600,1800 RANDI Administration Guaifenesin 600 mg 03/08/21 01:00 03/10/21 09:17 Guaifenesin Er 600 Mg Tab PO 600 mg BID RANDI Administration Heparin Sodium (Porcine) 5,000 unit 03/08/21 10:00 03/10/21 09:17 Heparin 5,000 Unit/1 Ml Vial SUB-Q 5,000 unit BID RANDI Administration Hydralazine HCl 75 mg 03/08/21 06:00 03/10/21 05:38 Hydralazine 25 Mg Tab PO 75 mg Q8HR RANDI Administration Ceftriaxone Sodium 1 gm in 50 mls @ 100 mls/hr 03/08/21 10:00 03/10/21 09:23 Rocephin/Ns 1 Gm/50 Ml IV 03/12/21 10:29 100 mls/hr Q24HR RANDI Administration Protocol Insulin Human Lispro 0 unit 03/08/21 07:30 03/10/21 09:16 Insulin Lispro 100 Unit/Ml SUB-Q 2 unit ACHS RANDI Administration Protocol Metoprolol Tartrate 25 mg 03/09/21 22:00 03/10/21 09:18 Metoprolol Tartrate 25 Mg Tab PO 25 mg BID RANDI Administration Nifedipine 30 mg 03/08/21 10:00 03/10/21 09:17 Nifedipine Xl 30 Mg Tab PO 30 mg Q12HR RANDI Administration Nitroglycerin 0.4 mg 03/07/21 23:42 Nitroglycerin 0.4 Mg Tab Subl SL .Q5MIN PRN Chest Pain Ondansetron HCl 4 mg 03/07/21 23:40 Ondansetron 4 Mg/2 Ml Inj IV Q6H PRN Nausea And Vomiting Pravastatin Sodium 80 mg 03/08/21 22:00 03/09/21 21:20 Pravastatin 80 Mg Tab PO 80 mg QHS RANDI Administration Sodium Chloride 10 ml 03/08/21 10:00 03/10/21 09:18 Sodium Chloride 0.9% 10 Ml Flush Syringe IV 10 ml BID RANDI Administration Sodium Chloride 10 ml 03/07/21 23:40 Sodium Chloride 0.9% 10 Ml Flush Syringe IV PRN PRN LINE FLUSH
--- NOTE | 2021-03-10 10:33 | XRay Report ---
CHEST 1 VIEW INDICATION / CLINICAL INFORMATION: PNA, CHF. COMPARISON: Chest radiograph 03/07/2021 FINDINGS: SUPPORT DEVICES: None. HEART / MEDIASTINUM: Stable cardiomegaly. LUNGS / PLEURA: There has been interval resolution of previously seen bibasilar pulmonary opacities. The lungs are now clear. No pleural effusion. No pneumothorax. ADDITIONAL FINDINGS: No significant additional findings. IMPRESSION: 1. Interval resolution of previously seen bibasilar pulmonary opacities. The lungs are now clear. Signer Name: Sobia Carbajal MD Signed: 03/10/2021 10:29 AM Workstation Name: [id number]
--- NOTE | 2021-03-10 12:11 | Progress Note ---
Assessment and Plan Echo reviewed - EF 15-20%, LV mod dilated, mild diastolic dysfxn, mild MR, mod L pleural effusion. May transition to PO Lasix 40mg qDay in AM. Continue BB. No ACEI/ARB/ARNI for now due to renal fxn. Minimal CE elevation noted in the setting of acute HF and ANTONIO. Pt denies chest pain. No acute ischemic changes on ECG. Plan for ischemic eval Friday AM. Will ideally aim for cardiac catheterization; however, if renal fxn is not stable, may consider Lexiscan stress MPI instead. Pt seen in conjunction with Dr. Gallagher, who agrees with the assessment and plan of care. - Patient Problems (1) Pleural effusion Current Visit: Yes Status: Acute (2) Acute HFrEF (heart failure with reduced ejection fraction) Current Visit: Yes Status: Acute (3) Cardiomyopathy Current Visit: Yes Status: Acute (4) ANTONIO (acute kidney injury) Current Visit: Yes Status: Acute (5) Elevated troponin Current Visit: Yes Status: Acute (6) HTN (hypertension) Current Visit: Yes Status: Chronic Qualifiers: Hypertension type: essential hypertension Qualified Code(s): I10 - Essenti al (primary) hypertension (7) HLD (hyperlipidemia) Current Visit: Yes Status: Chronic Qualifiers: Hyperlipidemia type: mixed hyperlipidemia Qualified Code(s): E78.2 - Mixed hyperlipidemia (8) DM2 (diabetes mellitus, type 2) Current Visit: Yes Status: Chronic (9) Carotid artery stenosis Current Visit: Yes Status: Chronic (10) Chronic back pain Current Visit: Yes Status: Chronic Subjective Date of service: 03/10/21 Principal diagnosis: Acute HFrEF Interval history: Resting comfortably in bed. States she is feeling much better today. SOB improving. No new complaints. Tele reviewed - SR 70-80s, no events overnight. Objective Last Vital Signs Temp 97.8 F 03/10/21 03:54 Pulse 88 03/10/21 09:18 Resp 18 03/10/21 08:00 BP 123/65 03/10/21 09:18 Pulse Ox 95 03/10/21 09:39 - Physical Examination General: No Apparent Distress HEENT: Positive: EOMI, Normocephaly, Mucus Membranes Moist Neck: Positive: neck supple, trachea midline. Negative: JVD/HJR Cardiac: Positive: Reg Rate and Rhythm, S1/S2 Lungs: Positive: Decreased Breath Sounds (bases) Neuro: Positive: Grossly Intact Abdomen: Positive: Soft. Negative: Tender Skin: Negative: Rash Musculoskeletal: No Pain, Normal Range of Motion Extremities: Present: lower extr. pulses. Absent: edema - Labs and Meds Comprehensive Metabolic Panel 03/10/21 Range/Units 05:02 Sodium 134 L (137-145) mmol/L Potassium 4.1 (3.6-5.0) mmol/L Chloride 100.1 (98-107) mmol/L Carbon Dioxide 20 L (22-30) mmol/L BUN 52 H (7-17) mg/dL Creatinine 2.3 H (0.6-1.2) mg/dL Glucose 138 H (65-100) mg/dL Calcium 8.7 (8.4-10.2) mg/dL - Imaging and Cardiology EKG: report reviewed, image reviewed Echo: report reviewed (03/08/2021 - EF 15-20%, LV mod dilated, mild diastolic dysfxn, mild MR, mod L pleural effusion), other (03/2020 - EF 55-60%, mild concentric LVH, trace MR, trace AR, trace TR) - Telemetry EKG Rhythm: Sinus Rhythm - EKG Sinus rhythms and dysrhythmias: sinus rhythm Chamber hypertrophy or enlargement: left ventricular hypertro Repolarization changes or abnormalities: nonspecific abnormality, ST segment, and/or T wave
[2021-03-10] MEDS: PRAVASTATIN 80 MG TAB PO SCH (21:50)
[2021-03-11] MEDS: hydrALAZINE 25 MG TAB PO SCH ×3 (05:43→21:47)
[2021-03-11 06:32] LABS: Calcium 8.9 mg/dL (8.4-10.2)
--- NOTE | 2021-03-11 08:38 | Progress Note ---
Assessment and Plan Assessment and plan: Pneumonia -CXR shows Interval development of confluent infiltrate in the right lung base likely represents an infectious process -Blood Cultures no growth x 48 hours -Continue IV Abx -Supportive care Acute CHF (new onset) -BNP elevated at 9110 on admission -CXR showed Interval development of small bilateral pleural effusions with associated compressive atelectasis -Continue ASA and LUCIEN, will start on BB -Continue IV Lasix per cardiology recommendation -Echo revealed EF 15-20%, LV mod dilated, mild diastolic dysfxn, mild MR, mod L pleural effusion. Elevated troponin -Troponin elevated on admission Acute hypoxic respiratory failure -Etiology secondary to CHF and pneumonia -Albuterol as needed -Supplemental oxygen as needed HTN -Monitor BP -Continue anti-hypertensive meds DM -With hyperglycemia -BG on admission 201 -POC BG monitoring -SSI coverage prn -HgbA1C pending GI and DVT PPX -On heparin and Pepcid 03/10/2021. Patient with increasing creatinine. Renal ultrasound negative for h ydronephrosis. Cardiology started Lasix twice daily. No LUCIEN inhibitor or ARB secondary to renal function. Cardiology plans for ischemic evaluation on Friday if stable. Continue IV antibiotics. Follow-up chest x-ray in a.m. 03/11/2021. Creatinine slightly improved this morning. Patient for ischemic evaluation on tomorrow. Follow-up chest x-ray reveals resolution of previously seen bibasilar pulmonary opacities. The lungs now are completely clear. Discontinue antibiotics. History Interval history: No new issues overnight. Hospitalist Physical - Constitutional Vitals: Temp Pulse Resp BP Pulse Ox 98.4 F 83 18 151/91 97 03/11/21 03:55 03/11/21 03:55 03/11/21 07:45 03/11/21 03:55 03/11/21 07:45 General appearance: Present: no acute distress - EENT Eyes: Present: PERRL, EOM intact ENT: hearing intact, clear oral mucosa, dentition normal - Neck Neck: Present: supple, normal ROM - Respiratory Respiratory effort: normal Respiratory: bilateral: CTA - Cardiovascular Rhythm: regular Heart Sounds: Present: S1 & S2. Absent: gallop, rub - Extremities Extremities: no ischemia, No edema, Full ROM - Abdominal General gastrointestinal: soft, non-tender, non-distended, normal bowel sounds - Integumentary Integumentary: Present: clear, warm, dry - Neurologic Neurologic: CNII-XII intact, moves all extremities HEART Score - HEART Score EKG: Non-specific Age: 45-65 Risk factors: > 3 risk factors or hx of atherosclerotic disease Troponin: Troponin T 0.036 ng/mL (0.00-0.029) H 03/08/21 04:17 Results - Labs CBC & Chem 7: 03/07/21 14:27 03/11/21 05:25 Labs: Laboratory Last Values WBC 8.5 K/mm3 (4.5-11.0) 03/07/21 14:27 RBC 3.69 M/mm3 (3.65-5.03) 03/07/21 14:27 Hgb 11.4 gm/dl (10.1-14.3) 03/07/21 14:27 Hct 34.9 % (30.3-42.9) 03/07/21 14:27 MCV 95 fl (79-97) 03/07/21 14:27 MCH 31 pg (28-32) 03/07/21 14:27 MCHC 33 % (30-34) 03/07/21 14:27 RDW 13.8 % (13.2-15.2) 03/07/21 14:27 Plt Count 412 K/mm3 (140-440) 03/07/21 14:27 Lymph % (Auto) 14.7 % (13.4-35.0) 03/07/21 14:27 [place] % (Auto) 8.6 % (0.0-7.3) H 03/07/21 14:27 Eos % (Auto) 1.1 % (0.0-4.3) 03/07/21 14:27 Baso % (Auto) 0.9 % (0.0-1.8) 03/07/21 14:27 Lymph # (Auto) 1.3 K/mm3 (1.2-5.4) 03/07/21 14:27 [place] # (Auto) 0.7 K/mm3 (0.0-0.8) 03/07/21 14:27 Eos # (Auto) 0.1 K/mm3 (0.0-0.4) 03/07/21 14:27 Baso # (Auto) 0.1 K/mm3 (0.0-0.1) 03/07/21 14:27 Seg Neutrophils % 74.7 % (40.0-70.0) H 03/07/21 14:27 Seg Neutrophils # 6.4 K/mm3 (1.8-7.7) 03/07/21 14:27 Sodium 138 mmol/L (137-145) 03/11/21 05:25 Potassium 4.1 mmol/L (3.6-5.0) 03/11/21 05:25 Chloride 101.9 mmol/L (98-107) 03/11/21 05:25 Carbon Dioxide 20 mmol/L (22-30) L 03/11/21 05:25 Anion Gap 20 mmol/L 03/11/21 05:25 BUN 53 mg/dL (7-17) H 03/11/21 05:25 Creatinine 2.0 mg/dL (0.6-1.2) H 03/11/21 05:25 Estimated GFR 30 ml/min 03/11/21 05:25 BUN/Creatinine Ratio 27 % 03/11/21 05:25 Glucose 138 mg/dL (65-100) H 03/11/21 05:25 POC Glucose 134 mg/dL (70-105) H 03/10/21 21:25 Calcium 8.9 mg/dL (8.4-10.2) 03/11/21 05:25 Total Bilirubin 0.30 mg/dL (0.1-1.2) 03/07/21 14:27 AST 22 units/L (5-40) 03/07/21 14:27 ALT 29 units/L (7-56) 03/07/21 14:27 Alkaline Phosphatase 73 units/L (35-129) 03/07/21 14:27 Troponin T 0.036 ng/mL (0.00-0.029) H 03/08/21 04:17 NT-Pro-B Natriuret Pep 9110 pg/mL (0-900) H 03/07/21 14:27 Total Protein 7.2 g/dL (6.3-8.2) 03/07/21 14:27 Albumin 3.9 g/dL (3.9-5) 03/07/21 14:27 Albumin/Globulin Ratio 1.2 % 03/07/21 14:27 Triglycerides 92 mg/dL (2-149) 03/07/21 21:37 Cholesterol 142 mg/dL (50-199) 03/07/21 21:37 LDL Cholesterol Direct 91 mg/dL (50-130) 03/07/21 21:37 HDL Cholesterol 53 mg/dL (40-59) 03/07/21 21:37 Cholesterol/HDL Ratio 2.67 % 03/07/21 21:37 Urine Color Straw (Yellow) 03/09/21 06:00 Urine Turbidity Clear (Clear) 03/09/21 06:00 Urine pH 6.0 (5.0-7.0) 03/09/21 06:00 Ur Specific [place] 1.009 (1.003-1.030) 03/09/21 06:00 Urine Protein <15 mg/dl mg/dL (Negative) 03/09/21 06:00 Urine Glucose (UA) Neg mg/dL (Negative) 03/09/21 06:00 Urine Ketones Neg mg/dL (Negative) 03/09/21 06:00 Urine Blood Neg (Negative) 03/09/21 06:00 Urine Nitrite Neg (Negative) 03/09/21 06:00 Urine Bilirubin Neg (Negative) 03/09/21 06:00 Urine Urobilinogen < 2.0 mg/dL (<2.0) 03/09/21 06:00 Ur Leukocyte Esterase Neg (Negative) 03/09/21 06:00 Urine WBC (Auto) < 1.0 /HPF (0.0-6.0) 03/09/21 06:00 Urine RBC (Auto) 1.0 /HPF (0.0-6.0) 03/09/21 06:00 U Epithel Cells (Auto) 1.0 /HPF (0-13.0) 03/09/21 06:00 Urine Mucus Few /HPF 03/09/21 06:00 Urine Creatinine 49.1 mg/dL (0.1-20.0) H 03/09/21 06:00 Urine Sodium 97 mmol/L 03/09/21 06:00 Nasal Screen MRSA (PCR) Negative (Negative) 03/08/21 Unknown Microbiology: Microbiology 03/08/21 00:16 Peripheral/Venous Blood Culture - Preliminary NO GROWTH AFTER 72 HOURS 03/08/21 00:09 Peripheral/Venous Blood Culture - Preliminary NO GROWTH AFTER 72 HOURS Rosa/IV: Voiding Method Toilet Active Medications - Current Medications Current Medications: Generic Name Dose Route Start Last Admin Trade Name Freq PRN Reason Stop Dose Admin Acetaminophen 650 mg 03/07/21 23:40 Acetaminophen 325 Mg Tab PO Q4H PRN Pain MILD(1-3)/Fever >100.5/[place] Albuterol 2.5 mg 03/07/21 23:40 Albuterol 2.5 Mg/3 Ml Nebu IH Q3HRT PRN Shortness Of Breath Aspirin 325 mg 03/08/21 10:00 03/10/21 09:18 Aspirin Ec 325 Mg Tab PO 325 mg QDAY RANDI Administration Dextrose 50 ml 03/07/21 23:40 Dextrose 50% In Water (25gm) 50 Ml Syringe IV Q30MIN PRN Hypoglycemia Protocol Docusate Sodium 100 mg 03/08/21 10:00 03/10/21 21:50 Docusate Sodium 100 Mg Cap PO 100 mg BID RANDI Administration Famotidine 10 mg 03/08/21 10:00 03/10/21 21:50 Famotidine 10 Mg Tab PO 10 mg BID RANDI Administration Furosemide 40 mg 03/11/21 10:00 Furosemide 40 Mg Tab PO QDAY RANDI Guaifenesin 600 mg 03/08/21 01:00 03/10/21 21:50 Guaifenesin Er 600 Mg Tab PO 600 mg BID RANDI Administration Heparin Sodium (Porcine) 5,000 unit 03/08/21 10:00 03/10/21 21:51 Heparin 5,000 Unit/1 Ml Vial SUB-Q 5,000 unit BID RANDI Administration Hydralazine HCl 75 mg 03/08/21 06:00 03/11/21 05:43 Hydralazine 25 Mg Tab PO 75 mg Q8HR RANDI Administration Ceftriaxone Sodium 1 gm in 50 mls @ 100 mls/hr 03/08/21 10:00 03/10/21 09:23 Rocephin/Ns 1 Gm/50 Ml IV 03/12/21 10:29 100 mls/hr Q24HR RANDI Administration Protocol Insulin Human Lispro 0 unit 03/08/21 07:30 03/10/21 21:49 Insulin Lispro 100 Unit/Ml SUB-Q Not Given ACHS RANDI Protocol Metoprolol Tartrate 25 mg 03/09/21 22:00 03/10/21 21:50 Metoprolol Tartrate 25 Mg Tab PO 25 mg BID RANDI Administration Nifedipine 30 mg 03/08/21 10:00 03/10/21 21:50 Nifedipine Xl 30 Mg Tab PO 30 mg Q12HR RANDI Administration Nitroglycerin 0.4 mg 03/07/21 23:42 Nitroglycerin 0.4 Mg Tab Subl SL .Q5MIN PRN Chest Pain Ondansetron HCl 4 mg 03/07/21 23:40 Ondansetron 4 Mg/2 Ml Inj IV Q6H PRN Nausea And Vomiting Pravastatin Sodium 80 mg 03/08/21 22:00 03/10/21 21:50 Pravastatin 80 Mg Tab PO 80 mg QHS RANDI Administration Sodium Chloride 10 ml 03/08/21 10:00 03/10/21 21:51 Sodium Chloride 0.9% 10 Ml Flush Syringe IV 10 ml BID RANDI Administration Sodium Chloride 10 ml 03/07/21 23:40 Sodium Chloride 0.9% 10 Ml Flush Syringe IV PRN PRN LINE FLUSH
[2021-03-11] MEDS: INSULIN LISPRO 100 UNIT/ML SUB-Q SCH ×4 (09:13→21:48)
[2021-03-11] MEDS: METOPROLOL TARTRATE 25 MG TAB PO SCH ×2 (09:14→21:47)
[2021-03-11] MEDS: cefTRIAXone/NS 1 GM/50 ML 1 GM/50 ML BAG IV SCH (09:14)
[2021-03-11] MEDS: FAMOTIDINE 10 MG TAB PO SCH ×2 (09:14→21:46)
[2021-03-11] MEDS: FUROSEMIDE 40 MG TAB PO SCH (09:15)
[2021-03-11] MEDS: ASPIRIN EC 325 MG TAB PO SCH (09:15)
[2021-03-11] MEDS: NIFEdipine XL 30 MG TAB PO SCH ×2 (09:15→21:47)
[2021-03-11] MEDS: DOCUSATE SODIUM 100 MG CAP PO SCH ×2 (09:15→21:47)
[2021-03-11] MEDS: guaiFENesin ER 600 MG TAB PO SCH ×2 (09:15→21:47)
[2021-03-11] MEDS: HEPARIN 5,000 UNIT/1 ML VIAL SUB-Q SCH ×2 (09:15→21:48)
--- NOTE | 2021-03-11 11:45 | Progress Note ---
Assessment and Plan Echo reviewed - EF 15-20%, LV mod dilated, mild diastolic dysfxn, mild MR, mod L pleural effusion. Transitioned to PO Lasix this AM. Continue BB. No ACEI/ARB/ARNI for now due to renal fxn. Minimal CE elevation noted in the setting of acute HF and ANTONIO. Pt denies chest pain. No acute ischemic changes on ECG. Plan for Lexiscan stress MPI in AM. NPO after midnight. Pt seen in conjunction with Dr. Gallagher, who agrees with the assessment and plan of care. - Patient Problems (1) Acute HFrEF (heart failure with reduced ejection fraction) Current Visit: Yes Status: Acute (2) Pleural effusion Current Visit: Yes Status: Acute (3) Cardiomyopathy Current Visit: Yes Status: Acute (4) ANTONIO (acute kidney injury) Current Visit: Yes Status: Acute (5) Elevated troponin Current Visit: Yes Status: Acute (6) HTN (hypertension) Current Visit: Yes Status: Chronic Qualifiers: Hypertension type: essential hypertension Qualified Code(s): I10 - Essential (primary) hypertension (7) HLD (hyperlipidemia) Current Visit: Yes Status: Chronic Qualifiers: Hyperlipidemia type: mixed hyperlipidemia Qualified Code(s): E78.2 - Mixed hyperlipidemia (8) DM2 (diabetes mellitus, type 2) Current Visit: Yes Status: Chronic (9) Carotid artery stenosis Current Visit: Yes Status: Chronic (10) Chronic back pain Current Visit: Yes Status: Chronic Subjective Date of service: 03/11/21 Principal diagnosis: Acute HFrEF/New CMP Interval history: Resting comfortably in bed. States she is feeling good. No SOB or additional cardiac complaints. Tele reviewed - SR 70s, no events overnight. Objective Last Vital Signs Temp 97.9 F 03/11/21 08:10 Pulse 77 03/11/21 09:14 Resp 16 03/11/21 08:10 BP 117/75 03/11/21 09:14 Pulse Ox 97 03/11/21 08:10 - Physical Examination General: No Apparent Distress HEENT: Positive: EOMI, Normocephaly, Mucus Membranes Moist Neck: Positive: neck supple, trachea midline. Negative: JVD/HJR Cardiac: Positive: Reg Rate and Rhythm, S1/S2 Lungs: Positive: clear to auscultation (bilaterally) Neuro: Positive: Grossly Intact Abdomen: Positive: Soft. Negative: Tender Skin: Negative: Rash Musculoskeletal: No Pain, Normal Range of Motion Extremities: Present: lower extr. pulses. Absent: edema - Labs and Meds Comprehensive Metabolic Panel 03/11/21 Range/Units 05:25 Sodium 138 (137-145) mmol/L Potassium 4.1 (3.6-5.0) mmol/L Chloride 101.9 (98-107) mmol/L Carbon Dioxide 20 L (22-30) mmol/L BUN 53 H (7-17) mg/dL Creatinine 2.0 H (0.6-1.2) mg/dL Glucose 138 H (65-100) mg/dL Calcium 8.9 (8.4-10.2) mg/dL - Imaging and Cardiology EKG: report reviewed, image reviewed Pharmacologic stress test: pending Echo: report reviewed (03/08/2021 - EF 15-20%, LV mod dilated, mild diastolic dysfxn, mild MR, mod L pleural effusion), other (03/2020 - EF 55-60%, mild concentric LVH, trace MR, trace AR, trace TR) - Telemetry EKG Rhythm: Sinus Rhythm - EKG Sinus rhythms and dysrhythmias: sinus rhythm Chamber hypertrophy or enlargement: left ventricular hypertro Repolarization changes or abnormalities: nonspecific abnormality, ST segment, and/or T wave
--- NOTE | 2021-03-11 12:13 | Progress Note ---
Assessment and Plan 1. Acute kidney injury: ANTONIO in the setting of PNA and ?CHF. Likely ATN. UA bland. Renal US negative for hydro. Monitor renal function. Creatinine level improving. Diuretics stopped. Avoid nephrotoxic agents. Meds dosage based on GFR. 2. FEN: Anion-gap metabolic acidosis, monitor. Monitor lytes and volume status. 3. Pneumonia: IV antibiotics. Follow culture result. 4. CHF // Elevated troponin: Followed by Cards. 5. DM type 2. 6. Hypertension: BP controlled. Subjective: Patient was seen and examined at the bedside. Doing ok. Examination: General appearance: well-developed, appears stated age, not in distress HEENT: atraumatic, [place] Neck: trachea midline Respiratory: ctab Heart: S1S2, regular, no murmur Abdomen: soft, bowel sounds heard, NT Integumentary: no obvious rash Neurologic: AO, non-focal Ext: no edema Subjective Date of service: 03/11/21 Principal diagnosis: Acute HFrEF/New CMP Objective - Vital Signs Vital signs: Vital Signs - 12hr 03/11/21 03/11/21 03/11/21 00:16 03:55 07:45 Temperature 97.7 F 98.4 F Pulse Rate 71 83 Respiratory 18 18 18 Rate Blood Pressure 122/61 151/91 O2 Sat by Pulse 97 96 97 Oximetry 03/11/21 03/11/21 03/11/21 08:10 08:30 09:14 Temperature 97.9 F Pulse Rate 77 71 77 Respiratory 16 Rate Blood Pressure 117/75 117/75 O2 Sat by Pulse 97 Oximetry - Lab 03/13/21 04:59 03/13/21 04:59 Most recent lab results Calcium 8.9 mg/dL (8.4-10.2) 03/11/21 05:25 Urine Creatinine 49.1 mg/dL (0.1-20.0) H 03/09/21 06:00 Urine Sodium 97 mmol/L 03/09/21 06:00 Medications & Allergies - Medications Allergies/Adverse Reactions: Allergies No Known Allergies Allergy (Verified 11/10/13 15:34) Home Medications: Home Medications Medication Instructions Recorded Confirmed Last Taken Type lisinopriL [Zestril TAB] 20 mg PO QDAY #30 tablet 11/12/13 03/08/21 03/07/21 Rx Bisoprolol/Hctz (Nf) [Ziac 5/6.25 1 tab PO QDAY 05/28/16 03/08/21 03/07/21 Histo ry (Nf)] Ibuprofen [Motrin 800 MG tab] 800 mg PO TID 05/28/16 03/08/21 08/04/16 History 400 MG Multivit-Min/FA/Lycopen/Lutein 1 each PO QDAY 05/28/16 03/08/21 03/06/21 History [Centrum Silver Tablet] [place] 25 mg PO DAILY 05/31/16 03/08/21 08/05/16 History HYDROcodone/APAP 5-325 [[place] 1 - 2 each PO Q4HR PRN #30 tablet 08/06/16 03/08/21 Unknown Rx 5-325 mg TAB] Aspirin EC [Ecotrin] 325 mg PO QDAY #30 tablet 04/02/20 03/08/21 03/06/21 Rx NIFEdipine XL [Procardia Xl] 30 mg PO Q12HR #60 tablet 04/02/20 03/08/21 03/07/21 Rx Pravastatin [Pravachol] 80 mg PO QHS #30 tablet 04/02/20 03/08/21 03/07/21 Rx hydrALAZINE [Apresoline TAB] 75 mg PO Q8HR #90 tablet 04/02/20 03/08/21 03/06/21 Rx Active Medications: Generic Name Dose Route Start Last Admin Trade Name Freq PRN Reason Stop Dose Admin Acetaminophen 650 mg 03/07/21 23:40 Acetaminophen 325 Mg Tab PO Q4H PRN Pain MILD(1-3)/Fever >100.5/[place] Albuterol 2.5 mg 03/07/21 23:40 Albuterol 2.5 Mg/3 Ml Nebu IH Q3HRT PRN Shortness Of Breath Aspirin 325 mg 03/08/21 10:00 03/11/21 09:15 Aspirin Ec 325 Mg Tab PO 325 mg QDAY RANDI Administration Dextrose 50 ml 03/07/21 23:40 Dextrose 50% In Water (25gm) 50 Ml Syringe IV Q30MIN PRN Hypoglycemia Protocol Docusate Sodium 100 mg 03/08/21 10:00 03/11/21 09:15 Docusate Sodium 100 Mg Cap PO 100 mg BID RANDI Administration Famotidine 10 mg 03/08/21 10:00 03/11/21 09:14 Famotidine 10 Mg Tab PO 10 mg BID RANDI Administration Furosemide 40 mg 03/11/21 10:00 03/11/21 09:15 Furosemide 40 Mg Tab PO 40 mg QDAY RANDI Administration Guaifenesin 600 mg 03/08/21 01:00 03/11/21 09:15 Guaifenesin Er 600 Mg Tab PO 600 mg BID RANDI Administration Heparin Sodium (Porcine) 5,000 unit 03/08/21 10:00 03/11/21 09:15 Heparin 5,000 Unit/1 Ml Vial SUB-Q 5,000 unit BID RANDI Administration Hydralazine HCl 75 mg 03/08/21 06:00 03/11/21 05:43 Hydralazine 25 Mg Tab PO 75 mg Q8HR RANDI Administration Ceftriaxone Sodium 1 gm in 50 mls @ 100 mls/hr 03/08/21 10:00 03/11/21 09:14 Rocephin/Ns 1 Gm/50 Ml IV 03/12/21 10:29 100 mls/hr Q24HR RANDI Administration Protocol Insulin Human Lispro 0 unit 03/08/21 07:30 03/11/21 12:10 Insulin Lispro 100 Unit/Ml SUB-Q 2 unit ACHS RANDI Administration Protocol Metoprolol Tartrate 25 mg 03/09/21 22:00 03/11/21 09:14 Metoprolol Tartrate 25 Mg Tab PO 25 mg BID RANDI Administration Nifedipine 30 mg 03/08/21 10:00 03/11/21 09:15 Nifedipine Xl 30 Mg Tab PO 30 mg Q12HR RANDI Administration Nitroglycerin 0.4 mg 03/07/21 23:42 Nitroglycerin 0.4 Mg Tab Subl SL .Q5MIN PRN Chest Pain Ondansetron HCl 4 mg 03/07/21 23:40 Ondansetron 4 Mg/2 Ml Inj IV Q6H PRN Nausea And Vomiting Pravastatin Sodium 80 mg 03/08/21 22:00 03/10/21 21:50 Pravastatin 80 Mg Tab PO 80 mg QHS RANDI Administration Sodium Chloride 10 ml 03/08/21 10:00 03/11/21 09:15 Sodium Chloride 0.9% 10 Ml Flush Syringe IV 10 ml BID RANDI Administration Sodium Chloride 10 ml 03/07/21 23:40 Sodium Chloride 0.9% 10 Ml Flush Syringe IV PRN PRN LINE FLUSH
[2021-03-11] MEDS: PRAVASTATIN 80 MG TAB PO SCH (21:46)
[2021-03-12 05:26] LABS: Basophils # (Auto) 0.1 K/mm3 (0.0-0.1); Basophils % (Auto) 1.2 % (0.0-1.8); Eosinophils # (Auto) 0.5 K/mm3 (0.0-0.4); Eosinophils % (Auto) 5.5 % (0.0-4.3); Hematocrit 30.8 % (30.3-42.9); Hemoglobin 10.6 gm/dl (10.1-14.3); Lymphocytes # (Auto) 2.3 K/mm3 (1.2-5.4); Lymphocytes % (Auto) 27.2 % (13.4-35.0); Mean Corpuscular HGB Conc 34 % (30-34); Mean Corpuscular Volume 95 fl (79-97); Monocytes # (Auto) 1.1 K/mm3 (0.0-0.8); Monocytes % (Auto) 12.9 % (0.0-7.3); Platelet Count 358 K/mm3 (140-440); Red Blood Count 3.26 M/mm3 (3.65-5.03); Red Cell Distribution Width 14.1 % (13.2-15.2)
[2021-03-12 05:39] LABS: Calcium 8.4 mg/dL (8.4-10.2)
[2021-03-12] MEDS: hydrALAZINE 25 MG TAB PO SCH ×3 (06:05→22:15)
[2021-03-12] MEDS ORDERED: REGADENOSON 0.4 MG/5 ML INJ IV ONE (07:37)
--- NOTE | 2021-03-12 09:52 | Progress Note ---
Assessment and Plan Assessment and plan: Pneumonia -CXR shows Interval development of confluent infiltrate in the right lung base likely represents an infectious process -Blood Cultures no growth x 48 hours -Continue IV Abx -Supportive care Acute CHF (new onset) -BNP elevated at 9110 on admission -CXR showed Interval development of small bilateral pleural effusions with associated compressive atelectasis -Continue ASA and LUCIEN, will start on BB -Continue IV Lasix per cardiology recommendation -Echo revealed EF 15-20%, LV mod dilated, mild diastolic dysfxn, mild MR, mod L pleural effusion. Elevated troponin -Troponin elevated on admission Acute hypoxic respiratory failure -Etiology secondary to CHF and pneumonia -Albuterol as needed -Supplemental oxygen as needed HTN -Monitor BP -Continue anti-hypertensive meds DM -With hyperglycemia -BG on admission 201 -POC BG monitoring -SSI coverage prn -HgbA1C pending GI and DVT PPX -On heparin and Pepcid 03/10/2021. Patient with increasing creatinine. Renal ultrasound negative for h ydronephrosis. Cardiology started Lasix twice daily. No LUCIEN inhibitor or ARB secondary to renal function. Cardiology plans for ischemic evaluation on Friday if stable. Continue IV antibiotics. Follow-up chest x-ray in a.m. 03/11/2021. Creatinine slightly improved this morning. Patient for ischemic evaluation on tomorrow. Follow-up chest x-ray reveals resolution of previously seen bibasilar pulmonary opacities. The lungs now are completely clear. Discontinue antibiotics. 03/12/2021. Patient for ischemic evaluation with stress test this morning. Await results and cardiology recommendations for discharge. Continue GDMT for acute systolic heart failure exacerbation. Echo revealed EF 15-20%, LV mod dilated, mild diastolic dysfxn, mild MR, mod L pleural effusion. Also, will discuss with nephrology plans regarding renal function. Physical therapy evaluation reports patient with no acute skilled therapy needs. Anticipate discharge later today or in a.m. History Interval history: No new issues overnight. Hospitalist Physical - Constitutional Vitals: Temp Pulse Resp BP Pulse Ox 98.5 F 79 20 152/81 98 03/12/21 04:00 03/12/21 06:05 03/12/21 04:00 03/12/21 06:05 03/12/21 04:00 General appearance: Present: no acute distress - EENT Eyes: Present: PERRL, EOM intact ENT: hearing intact, clear oral mucosa, dentition normal - Neck Neck: Present: supple, normal ROM - Respiratory Respiratory effort: normal Respiratory: bilateral: CTA - Cardiovascular Rhythm: regular Heart Sounds: Present: S1 & S2. Absent: gallop, rub - Extremities Extremities: no ischemia, No edema, Full ROM - Abdominal General gastrointestinal: soft, non-tender, non-distended, normal bowel sounds - Integumentary Integumentary: Present: clear, warm, dry - Neurologic Neurologic: CNII-XII intact, moves all extremities HEART Score - HEART Score EKG: Non-specific Age: 45-65 Risk factors: > 3 risk factors or hx of atherosclerotic disease Troponin: Troponin T 0.036 ng/mL (0.00-0.029) H 03/08/21 04:17 Results - Labs CBC & Chem 7: 03/12/21 04:26 03/12/21 04:26 Labs: Laboratory Last Values WBC 8.3 K/mm3 (4.5-11.0) 03/12/21 04:26 RBC 3.26 M/mm3 (3.65-5.03) L 03/12/21 04:26 Hgb 10.6 gm/dl (10.1-14.3) 03/12/21 04:26 Hct 30.8 % (30.3-42.9) 03/12/21 04:26 MCV 95 fl (79-97) 03/12/21 04:26 MCH 33 pg (28-32) H 03/12/21 04:26 MCHC 34 % (30-34) 03/12/21 04:26 RDW 14.1 % (13.2-15.2) 03/12/21 04:26 Plt Count 358 K/mm3 (140-440) 03/12/21 04:26 Lymph % (Auto) 27.2 % (13.4-35.0) 03/12/21 04:26 [place] % (Auto) 12.9 % (0.0-7.3) H 03/12/21 04:26 Eos % (Auto) 5.5 % (0.0-4.3) H 03/12/21 04:26 Baso % (Auto) 1.2 % (0.0-1.8) 03/12/21 04:26 Lymph # (Auto) 2.3 K/mm3 (1.2-5.4) 03/12/21 04:26 [place] # (Auto) 1.1 K/mm3 (0.0-0.8) H 03/12/21 04:26 Eos # (Auto) 0.5 K/mm3 (0.0-0.4) H 03/12/21 04:26 Baso # (Auto) 0.1 K/mm3 (0.0-0.1) 03/12/21 04:26 Seg Neutrophils % 53.2 % (40.0-70.0) 03/12/21 04:26 Seg Neutrophils # 4.4 K/mm3 (1.8-7.7) 03/12/21 04:26 Sodium 135 mmol/L (137-145) L 03/12/21 04:26 Potassium 4.2 mmol/L (3.6-5.0) 03/12/21 04:26 Chloride 101.5 mmol/L (98-107) 03/12/21 04:26 Carbon Dioxide 21 mmol/L (22-30) L 03/12/21 04:26 Anion Gap 17 mmol/L 03/12/21 04:26 BUN 52 mg/dL (7-17) H 03/12/21 04:26 Creatinine 2.0 mg/dL (0.6-1.2) H 03/12/21 04:26 Estimated GFR 30 ml/min 03/12/21 04:26 BUN/Creatinine Ratio 26 % 03/12/21 04:26 Glucose 125 mg/dL (65-100) H 03/12/21 04:26 POC Glucose 191 mg/dL (70-105) H 03/11/21 20:28 Calcium 8.4 mg/dL (8.4-10.2) 03/12/21 04:26 Total Bilirubin 0.30 mg/dL (0.1-1.2) 03/07/21 14:27 AST 22 units/L (5-40) 03/07/21 14:27 ALT 29 units/L (7-56) 03/07/21 14:27 Alkaline Phosphatase 73 units/L (35-129) 03/07/21 14:27 Troponin T 0.036 ng/mL (0.00-0.029) H 03/08/21 04:17 NT-Pro-B Natriuret Pep 9110 pg/mL (0-900) H 03/07/21 14:27 Total Protein 7.2 g/dL (6.3-8.2) 03/07/21 14:27 Albumin 3.9 g/dL (3.9-5) 03/07/21 14:27 Albumin/Globulin Ratio 1.2 % 03/07/21 14:27 Triglycerides 92 mg/dL (2-149) 03/07/21 21:37 Cholesterol 142 mg/dL (50-199) 03/07/21 21:37 LDL Cholesterol Direct 91 mg/dL (50-130) 03/07/21 21:37 HDL Cholesterol 53 mg/dL (40-59) 03/07/21 21:37 Cholesterol/HDL Ratio 2.67 % 03/07/21 21:37 Urine Color Straw (Yellow) 03/09/21 06:00 Urine Turbidity Clear (Clear) 03/09/21 06:00 Urine pH 6.0 (5.0-7.0) 03/09/21 06:00 Ur Specific [place] 1.009 (1.003-1.030) 03/09/21 06:00 Urine Protein <15 mg/dl mg/dL (Negative) 03/09/21 06:00 Urine Glucose (UA) Neg mg/dL (Negative) 03/09/21 06:00 Urine Ketones Neg mg/dL (Negative) 03/09/21 06:00 Urine Blood Neg (Negative) 03/09/21 06:00 Urine Nitrite Neg (Negative) 03/09/21 06:00 Urine Bilirubin Neg (Negative) 03/09/21 06:00 Urine Urobilinogen < 2.0 mg/dL (<2.0) 03/09/21 06:00 Ur Leukocyte Esterase Neg (Negative) 03/09/21 06:00 Urine WBC (Auto) < 1.0 /HPF (0.0-6.0) 03/09/21 06:00 Urine RBC (Auto) 1.0 /HPF (0.0-6.0) 03/09/21 06:00 U Epithel Cells (Auto) 1.0 /HPF (0-13.0) 03/09/21 06:00 Urine Mucus Few /HPF 03/09/21 06:00 Urine Creatinine 49.1 mg/dL (0.1-20.0) H 03/09/21 06:00 Urine Sodium 97 mmol/L 03/09/21 06:00 Nasal Screen MRSA (PCR) Negative (Negative) 03/08/21 Unknown Microbiology: Microbiology 03/08/21 00:16 Peripheral/Venous Blood Culture - Preliminary NO GROWTH AFTER 4 DAYS 03/08/21 00:09 Peripheral/Venous Blood Culture - Preliminary NO GROWTH AFTER 4 DAYS Rosa/IV: Voiding Method Toilet Active Medications - Current Medications Current Medications: Generic Name Dose Route Start Last Admin Trade Name Freq PRN Reason Stop Dose Admin Acetaminophen 650 mg 03/07/21 23:40 Acetaminophen 325 Mg Tab PO Q4H PRN Pain MILD(1-3)/Fever >100.5/[place] Albuterol 2.5 mg 03/07/21 23:40 Albuterol 2.5 Mg/3 Ml Nebu IH Q3HRT PRN Shortness Of Breath Aspirin 325 mg 03/08/21 10:00 03/11/21 09:15 Aspirin Ec 325 Mg Tab PO 325 mg QDAY RANDI Administration Dextrose 50 ml 03/07/21 23:40 Dextrose 50% In Water (25gm) 50 Ml Syringe IV Q30MIN PRN Hypoglycemia Protocol Docusate Sodium 100 mg 03/08/21 10:00 03/11/21 21:47 Docusate Sodium 100 Mg Cap PO 100 mg BID RANDI Administration Famotidine 10 mg 03/08/21 10:00 03/11/21 21:46 Famotidine 10 Mg Tab PO 10 mg BID RANDI Administration Furosemide 40 mg 03/11/21 10:00 03/11/21 09:15 Furosemide 40 Mg Tab PO 40 mg QDAY RANDI Administration Guaifenesin 600 mg 03/08/21 01:00 03/11/21 21:47 Guaifenesin Er 600 Mg Tab PO 600 mg BID RANDI Administration Heparin Sodium (Porcine) 5,000 unit 03/08/21 10:00 03/11/21 21:48 Heparin 5,000 Unit/1 Ml Vial SUB-Q 5,000 unit BID RANDI Administration Hydralazine HCl 75 mg 03/08/21 06:00 03/12/21 06:05 Hydralazine 25 Mg Tab PO 75 mg Q8HR RANDI Administration Ceftriaxone Sodium 1 gm in 50 mls @ 100 mls/hr 03/08/21 10:00 03/11/21 09:14 Rocephin/Ns 1 Gm/50 Ml IV 03/12/21 10:29 100 mls/hr Q24HR RANDI Administration Protocol Insulin Human Lispro 0 unit 03/08/21 07:30 03/11/21 21:48 Insulin Lispro 100 Unit/Ml SUB-Q 2 unit ACHS RANDI Administration Protocol Metoprolol Tartrate 25 mg 03/09/21 22:00 03/11/21 21:47 Metoprolol Tartrate 25 Mg Tab PO 25 mg BID RANDI Administration Nifedipine 30 mg 03/08/21 10:00 03/11/21 21:47 Nifedipine Xl 30 Mg Tab PO 30 mg Q12HR RANDI Administration Nitroglycerin 0.4 mg 03/07/21 23:42 Nitroglycerin 0.4 Mg Tab Subl SL .Q5MIN PRN Chest Pain Ondansetron HCl 4 mg 03/07/21 23:40 Ondansetron 4 Mg/2 Ml Inj IV Q6H PRN Nausea And Vomiting Pravastatin Sodium 80 mg 03/08/21 22:00 03/11/21 21:46 Pravastatin 80 Mg Tab PO 80 mg QHS RANDI Administration Sodium Chloride 10 ml 03/08/21 10:00 03/11/21 21:48 Sodium Chloride 0.9% 10 Ml Flush Syringe IV 10 ml BID RANDI Administration Sodium Chloride 10 ml 03/07/21 23:40 Sodium Chloride 0.9% 10 Ml Flush Syringe IV PRN PRN LINE FLUSH
[2021-03-12] MEDS: FUROSEMIDE 40 MG TAB PO SCH (09:57)
[2021-03-12] MEDS: HEPARIN 5,000 UNIT/1 ML VIAL SUB-Q SCH ×2 (09:57→22:16)
[2021-03-12] MEDS: cefTRIAXone/NS 1 GM/50 ML 1 GM/50 ML BAG IV SCH (09:57)
[2021-03-12] MEDS: DOCUSATE SODIUM 100 MG CAP PO SCH ×2 (09:58→22:15)
[2021-03-12] MEDS: NIFEdipine XL 30 MG TAB PO SCH ×2 (09:58→22:15)
[2021-03-12] MEDS: METOPROLOL TARTRATE 25 MG TAB PO SCH ×2 (09:58→22:16)
[2021-03-12] MEDS: FAMOTIDINE 10 MG TAB PO SCH ×2 (09:58→22:16)
[2021-03-12] MEDS: guaiFENesin ER 600 MG TAB PO SCH ×2 (09:58→22:15)
[2021-03-12] MEDS: ASPIRIN EC 325 MG TAB PO SCH (09:58)
[2021-03-12] MEDS: INSULIN LISPRO 100 UNIT/ML SUB-Q SCH ×4 (09:59→22:30)
--- NOTE | 2021-03-12 11:13 | Progress Note ---
<LINH MORRIS - Last Filed: 03/12/21 15:34> Assessment and Plan Acute heart failure reduced ejection fraction in setting of new cardiomyopathy * Patient is currently chest pain-free. She appears to be nearing euvolemia. Continue Lasix 40 mg p.o. daily. Repeat BMP in a.m. * Echo reviewed - EF 15-20%, LV mod dilated, mild diastolic dysfxn, mild MR, mod L pleural effusion. * Exercise MPI stress test (03/12/2021): Mild inferior apical ischemia. Estimated EF is 35% * Continue goal-directed therapy with cardioprotective regimen: ASA 325, metoprolol 25 mg twice daily, pravastatin 80. Plan to resume ACEI once ANTONIO is resolved. Refer for outpatient cardiac rehab. * LifeVest placement ordered in setting of severe cardiomyopathy with ventricular ectopy demonstrated on telemetry. Scheduled to be delivered and placed today. * We will plan for left heart cath once cleared by nephrology, anticipate Friday or . Continue to monitor on telemetry Elevated Troponin * Troponin is elevated x3, subacute nonspecific and stable. Continue to trend CE's Acute Kidney Injury * No LUCIEN/ARB in setting of ANTONIO. Avoid nephrotoxic agents. Nephrology is following Respiratory distress in setting of pleural effusion * Management per primary team DVT prophylaxis * Heparin SQ Plan for left heart cath once cleared by nephrology. Will follow Patient should follow-up with Dr David Sanford, [facility] electronic warfare specialist in our [place] office on 03/30/21 at 3:30 PM. #[id number] Pt seen in conjunction with Dr. Patrick Peters, who agrees with the assessment and plan of care. - Patient Problems (1) Acute HFrEF (heart failure with reduced ejection fraction) Current Visit: Yes Status: Acute (2) Pleural effusion Current Visit: Yes Status: Acute (3) Cardiomyopathy Current Visit: Yes Status: Acute (4) ANTONIO (acute kidney injury) Current Visit: Yes Status: Acute (5) Elevated troponin Current Visit: Yes Status: Acute (6) HTN (hypertension) Current Visit: Yes Status: Chronic Qualifiers: Hypertension type: essential hypertension Qualified Code(s): I10 - Essential (primary) hypertension (7) HLD (hyperlipidemia) Current Visit: Yes Status: Chronic Qualifiers: Hyperlipidemia type: mixed hyperlipidemia Qualified Code(s): E78.2 - Mixed hyperlipidemia (8) DM2 (diabetes mellitus, type 2) Current Visit: Yes Status: Chronic (9) Carotid artery stenosis Current Visit: Yes Status: Chronic (10) Chronic back pain Current Visit: Yes Status: Chronic Subjective Date of service: 03/12/21 Principal diagnosis: Acute HFrEF/New CMP Interval history: Patient resting comfortably in bed. No shortness of breath or chest pain overnight. Telemetry reviewed: Sinus rhythm 83. 9 beat episode of V. tach noted overnight Objective Last Vital Signs Temp 98.5 F 03/12/21 04:00 Pulse 79 03/12/21 06:05 Resp 20 03/12/21 04:00 BP 152/81 03/12/21 06:05 Pulse Ox 97 03/12/21 10:09 - Physical Examination General: No Apparent Distress HEENT: Positive: EOMI, Normocephaly, Mucus Membranes Moist Neck: Positive: neck supple, trachea midline. Negative: JVD/HJR Cardiac: Positive: Reg Rate and Rhythm, S1/S2 Lungs: Positive: Normal Exam, Normal Breath Sounds Neuro: Positive: Grossly Intact Abdomen: Positive: Soft. Negative: Tender Skin: Negative: Rash Musculoskeletal: No Pain, Normal Range of Motion Extremities: Present: lower extr. pulses. Absent: edema - Labs and Meds CBC 03/12/21 Range/Units 04:26 WBC 8.3 (4.5-11.0) K/mm3 RBC 3.26 L (3.65-5.03) M/mm3 Hgb 10.6 (10.1-14.3) gm/dl Hct 30.8 (30.3-42.9) % Plt Count 358 (140-440) K/mm3 Lymph # (Auto) 2.3 (1.2-5.4) K/mm3 [place] # (Auto) 1.1 H (0.0-0.8) K/mm3 Eos # (Auto) 0.5 H (0.0-0.4) K/mm3 Baso # (Auto) 0.1 (0.0-0.1) K/mm3 Comprehensive Metabolic Panel 03/12/21 Range/Units 04:26 Sodium 135 L (137-145) mmol/L Potassium 4.2 (3.6-5.0) mmol/L Chloride 101.5 (98-107) mmol/L Carbon Dioxide 21 L (22-30) mmol/L BUN 52 H (7-17) mg/dL Creatinine 2.0 H (0.6-1.2) mg/dL Glucose 125 H (65-100) mg/dL Calcium 8.4 (8.4-10.2) mg/dL - Imaging and Cardiology EKG: report reviewed, image reviewed Echo: report reviewed (03/08/2021 - EF 15-20%, LV mod dilated, mild diastolic dysfxn, mild MR, mod L pleural effusion), other (03/2020 - EF 55-60%, mild concentric LVH, trace MR, trace AR, trace TR) - EKG Sinus rhythms and dysrhythmias: sinus rhythm Chamber hypertrophy or enlargement: left ventricular hypertro Repolarization changes or abnormalities: nonspecific abnormality, ST segment, and/or T wave <CHARLINE PETERS - Last Filed: 03/12/21 17:50> Assessment and Plan Acute HFrEF 15-20% New cardiomyopathy Acute Kidney Injury Exercise MPI stress test (03/12/2021): Mild inferior apical ischemia. Estimated EF is 35% We will plan for left heart cath once cleared by nephrology, anticipate Friday or Objective Vital Signs Temp Pulse Resp BP Pulse Ox 03/12/21 10:09 97 03/12/21 10:02 145/86 03/12/21 09:02 150/72 03/12/21 09:00 148/72 03/12/21 08:58 141/66 03/12/21 08:56 154/73 03/12/21 08:54 158/67 03/12/21 08:52 154/62 03/12/21 08:50 140/74 03/12/21 08:48 149/83 03/12/21 08:24 142/77 03/12/21 06:05 79 152/81 03/12/21 04:00 98.5 F 79 20 152/81 98 03/12/21 03:33 69 03/12/21 00:52 700 H 03/12/21 00:37 98.4 F 75 20 150/83 97 03/11/21 21:47 80 146/70 03/11/21 20:00 79 97 03/11/21 19:17 98.6 F 80 20 146/70 97 - Labs and Meds CBC 03/12/21 Range/Units 04:26 WBC 8.3 (4.5-11.0) K/mm3 RBC 3.26 L (3.65-5.03) M/mm3 Hgb 10.6 (10.1-14.3) gm/dl Hct 30.8 (30.3-42.9) % Plt Count 358 (140-440) K/mm3 Lymph # (Auto) 2.3 (1.2-5.4) K/mm3 [place] # (Auto) 1.1 H (0.0-0.8) K/mm3 Eos # (Auto) 0.5 H (0.0-0.4) K/mm3 Baso # (Auto) 0.1 (0.0-0.1) K/mm3 Comprehensive Metabolic Panel 03/12/21 Range/Units 04:26 Sodium 135 L (137-145) mmol/L Potassium 4.2 (3.6-5.0) mmol/L Chloride 101.5 (98-107) mmol/L Carbon Dioxide 21 L (22-30) mmol/L BUN 52 H (7-17) mg/dL Creatinine 2.0 H (0.6-1.2) mg/dL Glucose 125 H (65-100) mg/dL Calcium 8.4 (8.4-10.2) mg/dL
--- NOTE | 2021-03-12 15:16 | Progress Note ---
Assessment and Plan 1. Acute kidney injury: ANTONIO in the setting of PNA and ?CHF. Likely ATN. UA bland. Renal US negative for hydro. Monitor renal function. Creatinine level is same as yesterday. Avoid diuretics. Avoid nephrotoxic agents. Meds dosage based on GFR. 2. FEN: Anion-gap metabolic acidosis, monitor. Appears euvolemic. Monitor lytes and volume status. 3. Pneumonia: S/p antibiotics. 4. CHF // Elevated troponin: Followed by Cards. Abnormal stress test, plan to do Cardiac cath 03/14 or 03/15. 5. DM type 2. 6. Hypertension: BP controlled. Subjective: Patient was seen and examined at the bedside. Doing ok. Examination: General appearance: well-developed, appears stated age, not in distress HEENT: atraumatic, [place] Neck: trachea midline Respiratory: ctab Heart: S1S2, regular, no murmur Abdomen: soft, bowel sounds heard, NT Integumentary: no obvious rash Neurologic: AO, non-focal Ext: no edema Subjective Date of service: 03/12/21 Principal diagnosis: Acute HFrEF/New CMP Objective - Vital Signs Vital signs: Vital Signs - 12hr 03/12/21 03/12/21 03/12/21 03:33 04:00 06:05 Temperature 98.5 F Pulse Rate 69 79 79 Respiratory 20 Rate Blood Pressure 152/81 152/81 O2 Sat by Pulse 98 Oximetry 03/12/21 03/12/21 03/12/21 08:24 08:48 08:50 Temperature Pulse Rate Respiratory Rate Blood Pressure 142/77 149/83 140/74 O2 Sat by Pulse Oximetry 03/12/21 03/12/21 03/12/21 08:52 08:54 08:56 Temperature Pulse Rate Respiratory Rate Blood Pressure 154/62 158/67 154/73 O2 Sat by Pulse Oximetry 03/12/21 03/12/21 03/12/21 08:58 09:00 09:02 Temperature Pulse Rate Respiratory Rate Blood Pressure 141/66 148/72 150/72 O2 Sat by Pulse Oximetry 03/12/21 03/12/21 10:02 10:09 Temperature Pulse Rate Respiratory Rate Blood Pressure 145/86 O2 Sat by Pulse 97 Oximetry - Lab 03/13/21 04:59 03/13/21 04:59 Most recent lab results Calcium 8.4 mg/dL (8.4-10.2) 03/12/21 04:26 Urine Creatinine 49.1 mg/dL (0.1-20.0) H 03/09/21 06:00 Urine Sodium 97 mmol/L 03/09/21 06:00 Medications & Allergies - Medications Allergies/Adverse Reactions: Allergies No Known Allergies Allergy (Verified 11/10/13 15:34) Home Medications: Home Medications Medication Instructions Recorded Confirmed Last Taken Type lisinopriL [Zestril TAB] 20 mg PO QDAY #30 tablet 11/12/13 03/08/21 03/07/21 Rx Bisoprolol/Hctz (Nf) [Ziac 5/6.25 1 tab PO QDAY 05/28/16 03/08/21 03/07/21 History (Nf)] Ibuprofen [Motrin 800 MG tab] 800 mg PO TID 05/28/16 03/08/21 08/04/16 History 400 MG Multivit-Min/FA/Lycopen/Lutein 1 each PO QDAY 05/28/16 03/08/21 03/06/21 History [Centrum Silver Tablet] [place] 25 mg PO DAILY 05/31/16 03/08/21 08/05/16 History HYDROcodone/APAP 5-325 [[place] 1 - 2 each PO Q4HR PRN #30 tablet 08/06/16 03/08/21 Unknown Rx 5-325 mg TAB] Aspirin EC [Ecotrin] 325 mg PO QDAY #30 tablet 04/02/20 03/08/21 03/06/21 Rx NIFEdipine XL [Procardia Xl] 30 mg PO Q12HR #60 tablet 04/02/20 03/08/21 03/07/21 Rx Pravastatin [Pravachol] 80 mg PO QHS #30 tablet 04/02/20 03/08/21 03/07/21 Rx hydrALAZINE [Apresoline TAB] 75 mg PO Q8HR #90 tablet 04/02/20 03/08/21 03/06/21 Rx Active Medications: Generic Name Dose Route Start Last Admin Trade Name Freq PRN Reason Stop Dose Admin Acetaminophen 650 mg 03/07/21 23:40 Acetaminophen 325 Mg Tab PO Q4H PRN Pain MILD(1-3)/Fever >100.5/[place] Albuterol 2.5 mg 03/07/21 23:40 Albuterol 2.5 Mg/3 Ml Nebu IH Q3HRT PRN Shortness Of Breath Aspirin 325 mg 03/08/21 10:00 03/12/21 09:58 Aspirin Ec 325 Mg Tab PO 325 mg QDAY RANDI Administration Dextrose 50 ml 03/07/21 23:40 Dextrose 50% In Water (25gm) 50 Ml Syringe IV Q30MIN PRN Hypoglycemia Protocol Docusate Sodium 100 mg 03/08/21 10:00 03/12/21 09:58 Docusate Sodium 100 Mg Cap PO 100 mg BID RANDI Administration Famotidine 10 mg 03/08/21 10:00 03/12/21 09:58 Famotidine 10 Mg Tab PO 10 mg BID RANDI Administration Furosemide 40 mg 03/11/21 10:00 03/12/21 09:57 Furosemide 40 Mg Tab PO 40 mg QDAY RANDI Administration Guaifenesin 600 mg 03/08/21 01:00 03/12/21 09:58 Guaifenesin Er 600 Mg Tab PO 600 mg BID RANDI Administration Heparin Sodium (Porcine) 5,000 unit 03/08/21 10:00 03/12/21 09:57 Heparin 5,000 Unit/1 Ml Vial SUB-Q 5,000 unit BID RANDI Administration Hydralazine HCl 75 mg 03/08/21 06:00 03/12/21 15:07 Hydralazine 25 Mg Tab PO 75 mg Q8HR RANDI Administration Insulin Human Lispro 0 unit 03/08/21 07:30 03/12/21 13:38 Insulin Lispro 100 Unit/Ml SUB-Q Not Given ACHS [facility] Protocol Metoprolol Tartrate 25 mg 03/09/21 22:00 03/12/21 09:58 Metoprolol Tartrate 25 Mg Tab PO 25 mg BID RANDI Administration Nifedipine 30 mg 03/08/21 10:00 03/12/21 09:58 Nifedipine Xl 30 Mg Tab PO 30 mg Q12HR RANDI Administration Nitroglycerin 0.4 mg 03/07/21 23:42 Nitroglycerin 0.4 Mg Tab Subl SL .Q5MIN PRN Chest Pain Ondansetron HCl 4 mg 03/07/21 23:40 Ondansetron 4 Mg/2 Ml Inj IV Q6H PRN Nausea And Vomiting Pravastatin Sodium 80 mg 03/08/21 22:00 03/11/21 21:46 Pravastatin 80 Mg Tab PO 80 mg QHS RANDI Administration Sodium Chloride 10 ml 03/08/21 10:00 03/12/21 12:13 Sodium Chloride 0.9% 10 Ml Flush Syringe IV 10 ml BID RANDI Administration Sodium Chloride 10 ml 03/07/21 23:40 Sodium Chloride 0.9% 10 Ml Flush Syringe IV PRN PRN LINE FLUSH
[2021-03-12] MEDS: PRAVASTATIN 80 MG TAB PO SCH (22:16)
[2021-03-13 05:44] LABS: Basophils # (Auto) 0.1 K/mm3 (0.0-0.1); Basophils % (Auto) 1.2 % (0.0-1.8); Eosinophils # (Auto) 0.4 K/mm3 (0.0-0.4); Eosinophils % (Auto) 5.3 % (0.0-4.3); Hematocrit 33.3 % (30.3-42.9); Hemoglobin 11.5 gm/dl (10.1-14.3); Lymphocytes # (Auto) 2.1 K/mm3 (1.2-5.4); Lymphocytes % (Auto) 26.9 % (13.4-35.0); Mean Corpuscular HGB Conc 34 % (30-34); Mean Corpuscular Volume 95 fl (79-97); Monocytes % (Auto) 13.4 % (0.0-7.3); Platelet Count 360 K/mm3 (140-440); Red Blood Count 3.52 M/mm3 (3.65-5.03); Red Cell Distribution Width 13.6 % (13.2-15.2)
[2021-03-13 06:08] LABS: Calcium 8.7 mg/dL (8.4-10.2)
--- NOTE | 2021-03-13 07:32 | Progress Note ---
Assessment and Plan 1. Acute kidney injury: ANTONIO in the setting of PNA and ?CHF. Likely ATN. UA bland. Renal US negative for hydro. Monitor renal function. Creatinine level is improving. Avoid diuretics. Avoid nephrotoxic agents. Meds dosage based on GFR. 2. FEN: Anion-gap metabolic acidosis, monitor. Appears euvolemic. Monitor lytes and volume status. 3. Pneumonia: S/p antibiotics. 4. CHF // Elevated troponin: Followed by Cards. Abnormal stress test, plan to do Cardiac cath 03/14 or 03/15. D/w patient about the possible renal risks of IV contrast and she gave consent to proceed. 5. DM type 2. 6. Hypertension: Monitor BP and adjust meds as needed. Subjective: Patient was seen and examined at the bedside. Doing ok. Examination: General appearance: well-developed, appears stated age, not in distress HEENT: atraumatic, SOUMYA Neck: trachea midline Respiratory: ctab Heart: S1S2, regular, no murmur Abdomen: soft, bowel sounds heard, NT Integumentary: no obvious rash Neurologic: AO, non-focal Ext: no edema Subjective Date of service: 03/13/21 Principal diagnosis: Acute HFrEF/New CMP Objective - Vital Signs Vital signs: Vital Signs - 12hr 03/12/21 03/12/21 03/12/21 22:15 22:16 23:19 Temperature 98.0 F Pulse Rate 80 80 71 Respiratory 14 Rate Blood Pressure 153/82 153/82 134/73 O2 Sat by Pulse 94 Oximetry 03/13/21 03/13/21 03/13/21 03:00 03:32 06:45 Temperature 97.9 F 98.0 F Pulse Rate 76 74 73 Respiratory 18 18 Rate Blood Pressure 136/74 139/74 O2 Sat by Pulse 94 97 Oximetry - Lab 03/13/21 17:22 03/13/21 04:59 Most recent lab results Calcium 8.7 mg/dL (8.4-10.2) 03/13/21 04:59 Urine Creatinine 49.1 mg/dL (0.1-20.0) H 03/09/21 06:00 Urine Sodium 97 mmol/L 03/09/21 06:00 Medications & Allergies - Medications Allergies/Adverse Reactions: Allergies No Known Allergies Allergy (Verified 11/10/13 15:34) Home Medications: Home Medications Medication Instructions Recorded Confirmed Last Taken Type lisinopriL [Zestril TAB] 20 mg PO QDAY #30 tablet 11/12/13 03/08/21 03/07/21 Rx Bisoprolol/Hctz (Nf) [Ziac 5/6.25 1 tab PO QDAY 05/28/16 03/08/21 03/07/21 History (Nf)] Ibuprofen [Motrin 800 MG tab] 800 mg PO TID 05/28/16 03/08/21 08/04/16 History 400 MG Multivit-Min/FA/Lycopen/Lutein 1 each PO QDAY 05/28/16 03/08/21 03/06/21 History [Centrum Silver Tablet] [place] 25 mg PO DAILY 05/31/16 03/08/21 08/05/16 History HYDROcodone/APAP 5-325 [[place] 1 - 2 each PO Q4HR PRN #30 tablet 08/06/16 03/08/21 Unknown Rx 5-325 mg TAB] Aspirin EC [Ecotrin] 325 mg PO QDAY #30 tablet 04/02/20 03/08/21 03/06/21 Rx NIFEdipine XL [Procardia Xl] 30 mg PO Q12HR #60 tablet 04/02/20 03/08/21 03/07/21 Rx Pravastatin [Pravachol] 80 mg PO QHS #30 tablet 04/02/20 03/08/21 03/07/21 Rx hydrALAZINE [Apresoline TAB] 75 mg PO Q8HR #90 tablet 04/02/20 03/08/21 03/06/21 Rx Active Medications: Generic Name Dose Route Start Last Admin Trade Name Freq PRN Reason Stop Dose Admin Acetaminophen 650 mg 03/07/21 23:40 Acetaminophen 325 Mg Tab PO Q4H PRN Pain MILD(1-3)/Fever >100.5/[place] Albuterol 2.5 mg 03/07/21 23:40 Albuterol 2.5 Mg/3 Ml Nebu IH Q3HRT PRN Shortness Of Breath Aspirin 325 mg 03/08/21 10:00 03/12/21 09:58 Aspirin Ec 325 Mg Tab PO 325 mg QDAY RANDI Administration Dextrose 50 ml 03/07/21 23:40 Dextrose 50% In Water (25gm) 50 Ml Syringe IV Q30MIN PRN Hypoglycemia Protocol Docusate Sodium 100 mg 03/08/21 10:00 03/12/21 22:15 Docusate Sodium 100 Mg Cap PO 100 mg BID RANDI Administration Famotidine 10 mg 03/08/21 10:00 03/12/21 22:16 Famotidine 10 Mg Tab PO 10 mg BID RANDI Administration Guaifenesin 600 mg 03/08/21 01:00 03/12/21 22:15 Guaifenesin Er 600 Mg Tab PO 600 mg BID RANDI Administration Heparin Sodium (Porcine) 5,000 unit 03/08/21 10:00 03/12/21 22:16 Heparin 5,000 Unit/1 Ml Vial SUB-Q 5,000 unit BID RANDI Administration Hydralazine HCl 75 mg 03/08/21 06:00 03/12/21 22:15 Hydralazine 25 Mg Tab PO 75 mg Q8HR RANDI Administration Insulin Human Lispro 0 unit 03/08/21 07:30 03/12/21 17:00 Insulin Lispro 100 Unit/Ml SUB-Q 4 unit ACHS RANDI Administration Protocol Metoprolol Tartrate 25 mg 03/09/21 22:00 03/12/21 22:16 Metoprolol Tartrate 25 Mg Tab PO 25 mg BID RANDI Administration Nifedipine 30 mg 03/08/21 10:00 03/12/21 22:15 Nifedipine Xl 30 Mg Tab PO 30 mg Q12HR RANDI Administration Nitroglycerin 0.4 mg 03/07/21 23:42 Nitroglycerin 0.4 Mg Tab Subl SL .Q5MIN PRN Chest Pain Ondansetron HCl 4 mg 03/07/21 23:40 Ondansetron 4 Mg/2 Ml Inj IV Q6H PRN Nausea And Vomiting Pravastatin Sodium 80 mg 03/08/21 22:00 03/12/21 22:16 Pravastatin 80 Mg Tab PO 80 mg QHS RANDI Administration Sodium Chloride 10 ml 03/08/21 10:00 03/12/21 22:17 Sodium Chloride 0.9% 10 Ml Flush Syringe IV 10 ml BID RANDI Administration Sodium Chloride 10 ml 03/07/21 23:40 Sodium Chloride 0.9% 10 Ml Flush Syringe IV PRN PRN LINE FLUSH
[2021-03-13] MEDS: hydrALAZINE 25 MG TAB PO SCH ×3 (07:38→21:12)
[2021-03-13] MEDS: INSULIN LISPRO 100 UNIT/ML SUB-Q SCH ×4 (08:28→21:05)
[2021-03-13] MEDS: NIFEdipine XL 30 MG TAB PO SCH ×2 (10:03→21:03)
[2021-03-13] MEDS: METOPROLOL TARTRATE 25 MG TAB PO SCH ×2 (10:04→21:03)
[2021-03-13] MEDS: FAMOTIDINE 10 MG TAB PO SCH ×2 (10:04→21:03)
[2021-03-13] MEDS: DOCUSATE SODIUM 100 MG CAP PO SCH ×2 (10:04→21:04)
[2021-03-13] MEDS: guaiFENesin ER 600 MG TAB PO SCH ×2 (10:04→21:03)
[2021-03-13] MEDS: ASPIRIN EC 325 MG TAB PO SCH (10:04)
[2021-03-13] MEDS: HEPARIN 5,000 UNIT/1 ML VIAL SUB-Q SCH ×2 (10:04→21:04)
--- NOTE | 2021-03-13 12:02 | Progress Note ---
Assessment and Plan Assessment and plan: Pneumonia -CXR shows Interval development of confluent infiltrate in the right lung base likely represents an infectious process -Blood Cultures no growth x 48 hours -Continue IV Abx -Supportive care Acute CHF (new onset) -BNP elevated at 9110 on admission -CXR showed Interval development of small bilateral pleural effusions with associated compressive atelectasis -Continue ASA and LUCIEN, will start on BB -Continue IV Lasix per cardiology recommendation -Echo revealed EF 15-20%, LV mod dilated, mild diastolic dysfxn, mild MR, mod L pleural effusion. Elevated troponin -Troponin elevated on admission Acute hypoxic respiratory failure -Etiology secondary to CHF and pneumonia -Albuterol as needed -Supplemental oxygen as needed HTN -Monitor BP -Continue anti-hypertensive meds DM -With hyperglycemia -BG on admission 201 -POC BG monitoring -SSI coverage prn ANTONIO Nephrology following Cr 1.7 today GI and DVT PPX -On heparin and Pepcid 03/10/2021. Patient with increasing creatinine. Renal ultrasound negative for hydronephrosis. Cardiology started Lasix twice daily. No LUCIEN inhibitor or ARB secondary to renal function. Cardiology plans for ischemic evaluation on Friday if stable. Continue IV antibiotics. Follow-up chest x-ray in a.m. 03/11/2021. Creatinine slightly improved this morning. Patient for ischemic evaluation on tomorrow. Follow-up chest x-ray reveals resolution of previously seen bibasilar pulmonary opacities. The lungs now are completely clear. Discontinue antibiotics. 03/12/2021. Patient for ischemic evaluation with stress test this morning. Await results and cardiology recommendations for discharge. Continue GDMT for acute systolic heart failure exacerbation. Echo revealed EF 15-20%, LV mod dilated, mild diastolic dysfxn, mild MR, mod L pleural effusion. Also, will discuss with nephrology plans regarding renal function. Physical therapy evaluation reports patient with no acute skilled therapy needs. Anticipate discharge later today or in a.m. 03/13/2021 Patient initially presented with shortness of breath. She was diagnosed with acute systolic CHF with EF 15-20%. She had an abnormal stress test and needs cardiac cath. Cardiology waiting for clearance from Nephrology. Prob cath in 1-2 days. Cardiology also recommends life vest. History Interval history: Patient initially presented with shortness of breath Hospitalist Physical - Physical exam Narrative exam: Gen: Not in acute distress, lying in bed HEENT: Normochephalic, atraumatic Neck:supple, Lungs: Clear, no rales Heart:S1 and S2 reg, no murmurs, rubs or gallop Abd: soft, non tender, non distended, normal bowel sounds Ext: No edema, no clubbing, no cyanosis Neuro:Awake,alert,oriented X 3, moves all ext, no focal neurological signs - Constitutional Vitals: Temp Pulse Resp BP Pulse Ox 98.0 F 73 18 139/74 96 03/13/21 06:45 03/13/21 07:38 03/13/21 06:45 03/13/21 07:38 03/13/21 09:33 General appearance: Present: no acute distress HEART Score - HEART Score EKG: Non-specific Age: 45-65 Risk factors: > 3 risk factors or hx of atherosclerotic disease Troponin: Troponin T 0.011 ng/mL (0.00-0.029) 03/13/21 04:59 Results - Labs CBC & Chem 7: 03/13/21 04:59 03/13/21 04:59 Labs: Laboratory Last Values WBC 7.7 K/mm3 (4.5-11.0) 03/13/21 04:59 RBC 3.52 M/mm3 (3.65-5.03) L 03/13/21 04:59 Hgb 11.5 gm/dl (10.1-14.3) 03/13/21 04:59 Hct 33.3 % (30.3-42.9) 03/13/21 04:59 MCV 95 fl (79-97) 03/13/21 04:59 MCH 33 pg (28-32) H 03/13/21 04:59 MCHC 34 % (30-34) 03/13/21 04:59 RDW 13.6 % (13.2-15.2) 03/13/21 04:59 Plt Count 360 K/mm3 (140-440) 03/13/21 04:59 Lymph % (Auto) 26.9 % (13.4-35.0) 03/13/21 04:59 [place] % (Auto) 13.4 % (0.0-7.3) H 03/13/21 04:59 Eos % (Auto) 5.3 % (0.0-4.3) H 03/13/21 04:59 Baso % (Auto) 1.2 % (0.0-1.8) 03/13/21 04:59 Lymph # (Auto) 2.1 K/mm3 (1.2-5.4) 03/13/21 04:59 [place] # (Auto) 1.0 K/mm3 (0.0-0.8) H 03/13/21 04:59 Eos # (Auto) 0.4 K/mm3 (0.0-0.4) 03/13/21 04:59 Baso # (Auto) 0.1 K/mm3 (0.0-0.1) 03/13/21 04:59 Seg Neutrophils % 53.2 % (40.0-70.0) 03/13/21 04:59 Seg Neutrophils # 4.1 K/mm3 (1.8-7.7) 03/13/21 04:59 Sodium 134 mmol/L (137-145) L 03/13/21 04:59 Potassium 4.7 mmol/L (3.6-5.0) 03/13/21 04:59 Chloride 99.3 mmol/L (98-107) 03/13/21 04:59 Carbon Dioxide 21 mmol/L (22-30) L 03/13/21 04:59 Anion Gap 18 mmol/L 03/13/21 04:59 BUN 51 mg/dL (7-17) H 03/13/21 04:59 Creatinine 1.7 mg/dL (0.6-1.2) H 03/13/21 04:59 Estimated GFR 37 ml/min 03/13/21 04:59 BUN/Creatinine Ratio 30 % 03/13/21 04:59 Glucose 139 mg/dL (65-100) H 03/13/21 04:59 POC Glucose 228 mg/dL (70-105) H 03/13/21 11:34 Calcium 8.7 mg/dL (8.4-10.2) 03/13/21 04:59 Total Bilirubin 0.30 mg/dL (0.1-1.2) 03/07/21 14:27 AST 22 units/L (5-40) 03/07/21 14:27 ALT 29 units/L (7-56) 03/07/21 14:27 Alkaline Phosphatase 73 units/L (35-129) 03/07/21 14:27 Troponin T 0.011 ng/mL (0.00-0.029) 03/13/21 04:59 NT-Pro-B Natriuret Pep 9110 pg/mL (0-900) H 03/07/21 14:27 Total Protein 7.2 g/dL (6.3-8.2) 03/07/21 14:27 Albumin 3.9 g/dL (3.9-5) 03/07/21 14:27 Albumin/Globulin Ratio 1.2 % 03/07/21 14:27 Triglycerides 92 mg/dL (2-149) 03/07/21 21:37 Cholesterol 142 mg/dL (50-199) 03/07/21 21:37 LDL Cholesterol Direct 91 mg/dL (50-130) 03/07/21 21:37 HDL Cholesterol 53 mg/dL (40-59) 03/07/21 21:37 Cholesterol/HDL Ratio 2.67 % 03/07/21 21:37 Urine Color Straw (Yellow) 03/09/21 06:00 Urine Turbidity Clear (Clear) 03/09/21 06:00 Urine pH 6.0 (5.0-7.0) 03/09/21 06:00 Ur Specific [place] 1.009 (1.003-1.030) 03/09/21 06:00 Urine Protein <15 mg/dl mg/dL (Negative) 03/09/21 06:00 Urine Glucose (UA) Neg mg/dL (Negative) 03/09/21 06:00 Urine Ketones Neg mg/dL (Negative) 03/09/21 06:00 Urine Blood Neg (Negative) 03/09/21 06:00 Urine Nitrite Neg (Negative) 03/09/21 06:00 Urine Bilirubin Neg (Negative) 03/09/21 06:00 Urine Urobilinogen < 2.0 mg/dL (<2.0) 03/09/21 06:00 Ur Leukocyte Esterase Neg (Negative) 03/09/21 06:00 Urine WBC (Auto) < 1.0 /HPF (0.0-6.0) 03/09/21 06:00 Urine RBC (Auto) 1.0 /HPF (0.0-6.0) 03/09/21 06:00 U Epithel Cells (Auto) 1.0 /HPF (0-13.0) 03/09/21 06:00 Urine Mucus Few /HPF 03/09/21 06:00 Urine Creatinine 49.1 mg/dL (0.1-20.0) H 03/09/21 06:00 Urine Sodium 97 mmol/L 03/09/21 06:00 Nasal Screen MRSA (PCR) Negative (Negative) 03/08/21 Unknown Microbiology: Microbiology 03/08/21 00:16 Peripheral/Venous Blood Culture - Final NO GROWTH AFTER 5 DAYS 03/08/21 00:09 Peripheral/Venous Blood Culture - Final NO GROWTH AFTER 5 DAYS Rosa/IV: Voiding Method Toilet Active Medications - Current Medications Current Medications: Generic Name Dose Route Start Last Admin Trade Name Freq PRN Reason Stop Dose Admin Acetaminophen 650 mg 03/07/21 23:40 Acetaminophen 325 Mg Tab PO Q4H PRN Pain MILD(1-3)/Fever >100.5/[place] Albuterol 2.5 mg 03/07/21 23:40 Albuterol 2.5 Mg/3 Ml Nebu IH Q3HRT PRN Shortness Of Breath Aspirin 325 mg 03/08/21 10:00 03/13/21 10:04 Aspirin Ec 325 Mg Tab PO 325 mg QDAY RANDI Administration Dextrose 50 ml 03/07/21 23:40 Dextrose 50% In Water (25gm) 50 Ml Syringe IV Q30MIN PRN Hypoglycemia Protocol Docusate Sodium 100 mg 03/08/21 10:00 03/13/21 10:04 Docusate Sodium 100 Mg Cap PO 100 mg BID RANDI Administration Famotidine 10 mg 03/08/21 10:00 03/13/21 10:04 Famotidine 10 Mg Tab PO 10 mg BID RANDI Administration Guaifenesin 600 mg 03/08/21 01:00 03/13/21 10:04 Guaifenesin Er 600 Mg Tab PO 600 mg BID RANDI Administration Heparin Sodium (Porcine) 5,000 unit 03/08/21 10:00 03/13/21 10:04 Heparin 5,000 Unit/1 Ml Vial SUB-Q 5,000 unit BID RANDI Administration Hydralazine HCl 75 mg 03/08/21 06:00 03/13/21 07:38 Hydralazine 25 Mg Tab PO 75 mg Q8HR RANDI Administration Insulin Human Lispro 0 unit 03/08/21 07:30 03/13/21 08:28 Insulin Lispro 100 Unit/Ml SUB-Q 2 unit ACHS RANDI Administration Protocol Metoprolol Tartrate 25 mg 03/09/21 22:00 03/13/21 10:04 Metoprolol Tartrate 25 Mg Tab PO 25 mg BID RANDI Administration Nifedipine 30 mg 03/08/21 10:00 03/13/21 10:03 Nifedipine Xl 30 Mg Tab PO 30 mg Q12HR RANDI Administration Nitroglycerin 0.4 mg 03/07/21 23:42 Nitroglycerin 0.4 Mg Tab Subl SL .Q5MIN PRN Chest Pain Ondansetron HCl 4 mg 03/07/21 23:40 Ondansetron 4 Mg/2 Ml Inj IV Q6H PRN Nausea And Vomiting Pravastatin Sodium 80 mg 03/08/21 22:00 03/12/21 22:16 Pravastatin 80 Mg Tab PO 80 mg QHS RANDI Administration Sodium Chloride 10 ml 03/08/21 10:00 03/13/21 11:16 Sodium Chloride 0.9% 10 Ml Flush Syringe IV Not Given BID RANDI Sodium Chloride 10 ml 03/07/21 23:40 Sodium Chloride 0.9% 10 Ml Flush Syringe IV PRN PRN LINE FLUSH
--- NOTE | 2021-03-13 13:03 | Progress Note ---
Assessment and Plan Acute heart failure reduced ejection fraction in setting of new cardiomyopathy * Patient is currently chest pain-free. She appears to be nearing euvolemia. Continue Lasix 40 mg p.o. daily. Repeat BMP in a.m. * Echo reviewed - EF 15-20%, LV mod dilated, mild diastolic dysfxn, mild MR, mod L pleural effusion. * Exercise MPI stress test (03/12/2021): Mild inferior apical ischemia. Estimated EF is 35% * Continue goal-directed therapy with cardioprotective regimen: ASA 325, metoprolol 25 mg twice daily, pravastatin 80. Plan to resume ACEI once ANTONIO is resolved. Refer for outpatient cardiac rehab. * LifeVest placement ordered in setting of severe cardiomyopathy with ventricular ectopy demonstrated on telemetry. Scheduled to be delivered and placed today. * We will plan for left heart cath once cleared by nephrology, anticipate . Creatinine is trending downward. Repeat BMP in a.m. Continue to monitor on telemetry Elevated Troponin * Troponin is elevated x3, subacute nonspecific and stable. Continue to trend CE's Acute Kidney Injury * No LUCIEN/ARB in setting of ANTONIO. Avoid nephrotoxic agents. Nephrology is following Respiratory distress in setting of pleural effusion * Management per primary team DVT prophylaxis * Heparin SQ Plan for left heart cath once cleared by nephrology. Pending lifevest placment. Will follow Patient should follow-up with Dr David Sanford, [facility] review specialist in our [place] office on 03/30/21 at 3:30 PM. #[phone] Pt seen in conjunction with Dr. Patrick Chong, who agrees with the assessment and plan of care. - Patient Problems (1) Acute HFrEF (heart failure with reduced ejection fraction) Current Visit: Yes Status: Acute (2) Pleural effusion Current Visit: Yes Status: Acute (3) Cardiomyopathy Current Visit: Yes Status: Acute (4) ANTONIO (acute kidney injury) Current Visit: Yes Status: Acute (5) Elevated troponin Current Visit: Yes Status: Acute (6) HTN (hypertension) Current Visit: Yes Status: Chronic Qualifiers: Hypertension type: essential hypertension Qualified Code(s): I10 - Essential (primary) hypertension (7) HLD (hyperlipidemia) Current Visit: Yes Status: Chronic Qualifiers: Hyperlipidemia type: mixed hyperlipidemia Qualified Code(s): E78.2 - Mixed hyperlipidemia (8) DM2 (diabetes mellitus, type 2) Current Visit: Yes Status: Chronic (9) Carotid artery stenosis Current Visit: Yes Status: Chronic (10) Chronic back pain Current Visit: Yes Status: Chronic Subjective Date of service: 03/13/21 Principal diagnosis: Acute HFrEF/New CMP Interval history: Patient resting comfortably in bed. No shortness of breath or chest pain overnight. Telemetry reviewed: Sinus rhythm 81. No events Objective Last Vital Signs Temp 98.0 F 03/13/21 06:45 Pulse 73 03/13/21 07:38 Resp 18 03/13/21 06:45 BP 139/74 03/13/21 07:38 Pulse Ox 96 03/13/21 09:33 - Physical Examination General: No Apparent Distress HEENT: Positive: EOMI, Normocephaly, Mucus Membranes Moist Neck: Positive: neck supple, trachea midline. Negative: JVD/HJR Cardiac: Positive: Reg Rate and Rhythm, S1/S2 Lungs: Positive: Normal Exam, Normal Breath Sounds Neuro: Positive: Grossly Intact Abdomen: Positive: Soft. Negative: Tender Skin: Negative: Rash, Wound Musculoskeletal: No Pain, Normal Range of Motion Extremities: Present: lower extr. pulses. Absent: edema - Labs and Meds CBC 03/13/21 Range/Units 04:59 WBC 7.7 (4.5-11.0) K/mm3 RBC 3.52 L (3.65-5.03) M/mm3 Hgb 11.5 (10.1-14.3) gm/dl Hct 33.3 (30.3-42.9) % Plt Count 360 (140-440) K/mm3 Lymph # (Auto) 2.1 (1.2-5.4) K/mm3 [place] # (Auto) 1.0 H (0.0-0.8) K/mm3 Eos # (Auto) 0.4 (0.0-0.4) K/mm3 Baso # (Auto) 0.1 (0.0-0.1) K/mm3 Comprehensive Metabolic Panel 03/13/21 Range/Units 04:59 Sodium 134 L (137-145) mmol/L Potassium 4.7 (3.6-5.0) mmol/L Chloride 99.3 (98-107) mmol/L Carbon Dioxide 21 L (22-30) mmol/L BUN 51 H (7-17) mg/dL Creatinine 1.7 H (0.6-1.2) mg/dL Glucose 139 H (65-100) mg/dL Calcium 8.7 (8.4-10.2) mg/dL - Imaging and Cardiology EKG: report reviewed, image reviewed Echo: report reviewed (03/08/2021 - EF 15-20%, LV mod dilated, mild diastolic dysfxn, mild MR, mod L pleural effusion), other (03/2020 - EF 55-60%, mild concentric LVH, trace MR, trace AR, trace TR) - Telemetry EKG Rhythm: Sinus Rhythm - EKG Sinus rhythms and dysrhythmias: sinus rhythm Chamber hypertrophy or enlargement: left ventricular hypertro Repolarization changes or abnormalities: nonspecific abnormality, ST segment, and/or T wave
[2021-03-13] MEDS ORDERED: SODIUM CHLORIDE 0.9% 500 ML 500 ML IV SCH (17:00)
[2021-03-13 18:03] LABS: Basophils # (Auto) 0.1 K/mm3 (0.0-0.1); Basophils % (Auto) 0.9 % (0.0-1.8); Eosinophils # (Auto) 0.3 K/mm3 (0.0-0.4); Eosinophils % (Auto) 4.5 % (0.0-4.3); Hematocrit 32.6 % (30.3-42.9); Hemoglobin 11.2 gm/dl (10.1-14.3); Lymphocytes # (Auto) 1.8 K/mm3 (1.2-5.4); Lymphocytes % (Auto) 25.2 % (13.4-35.0); Mean Corpuscular HGB Conc 34 % (30-34); Mean Corpuscular Volume 95 fl (79-97); Monocytes # (Auto) 1.1 K/mm3 (0.0-0.8); Monocytes % (Auto) 14.5 % (0.0-7.3); Platelet Count 388 K/mm3 (140-440); Red Blood Count 3.44 M/mm3 (3.65-5.03); Red Cell Distribution Width 13.8 % (13.2-15.2)
[2021-03-13 18:13] LABS: INR 0.9 (0.87-1.13)
[2021-03-13] MEDS: PRAVASTATIN 80 MG TAB PO SCH (21:03)
[2021-03-14] MEDS: hydrALAZINE 25 MG TAB PO SCH ×2 (05:21→13:38)
[2021-03-14 05:48] LABS: Calcium 9.1 mg/dL (8.4-10.2)
[2021-03-14] MEDS ORDERED: HEPARIN/NS 5000 UNIT/500ML 1,000 ML IR ONE (09:43)
[2021-03-14] MEDS ORDERED: SODIUM CHLORIDE 0.9% 500 ML 500 ML IV SCH (10:00)
--- NOTE | 2021-03-14 10:18 | Progress Note ---
Assessment and Plan 1. Acute kidney injury: ANTONIO in the setting of PNA and ?CHF. Likely ATN. UA bland. Renal US negative for hydro. Monitor renal function. Creatinine level is improving. Avoid diuretics. Avoid nephrotoxic agents. Meds dosage based on GFR. 2. FEN: Anion-gap metabolic acidosis, monitor. Appears euvolemic. Monitor lytes and volume status. 3. Pneumonia: S/p antibiotics. 4. CHF // Elevated troponin: Followed by Cards. Abnormal stress test, Cardiac cath today. D/w patient (03/13) about the possible renal risks of IV contrast and she gave consent to proceed. 5. DM type 2. 6. Hypertension: Monitor BP and adjust meds as needed. Subjective: Patient was seen and examined at the bedside. Doing ok. Examination: General appearance: well-developed, appears stated age, not in distress HEENT: atraumatic, SOUMYA Neck: trachea midline Respiratory: ctab Heart: S1S2, regular, no murmur Abdomen: soft, bowel sounds heard, NT Integumentary: no obvious rash Neurologic: AO, non-focal Ext: no edema Subjective Date of service: 03/14/21 Principal diagnosis: Acute HFrEF/New CMP Objective - Vital Signs Vital signs: Vital Signs - 12hr 03/13/21 03/14/21 03/14/21 23:00 03:46 03:47 Temperature 97.4 F L 98.0 F Pulse Rate 69 79 Respiratory 14 16 Rate Blood Pressure 128/65 148/75 O2 Sat by Pulse 98 98 Oximetry 03/14/21 03/14/21 05:21 08:05 Temperature 98.4 F Pulse Rate 79 83 Respiratory 18 Rate Blood Pressure 148/75 158/80 O2 Sat by Pulse 99 Oximetry - Lab 03/13/21 17:22 03/14/21 05:04 Most recent lab results Calcium 9.1 mg/dL (8.4-10.2) 03/14/21 05:04 Urine Creatinine 49.1 mg/dL (0.1-20.0) H 03/09/21 06:00 Urine Sodium 97 mmol/L 03/09/21 06:00 Medications & Allergies - Medications Allergies/Adverse Reactions: Allergies No Known Allergies Allergy (Verified 11/10/13 15:34) Home Medications: Home Medications Medication Instructions Recorded Confirmed Last Taken Type lisinopriL [Zestril TAB] 20 mg PO QDAY #30 tablet 11/12/13 03/08/21 03/07/21 Rx Bisoprolol/Hctz (Nf) [Ziac 5/6.25 1 tab PO QDAY 05/28/16 03/08/21 03/07/21 History (Nf)] Ibuprofen [Motrin 800 MG tab] 800 mg PO TID 05/28/16 03/08/21 08/04/16 History 400 MG Multivit-Min/FA/Lycopen/Lutein 1 each PO QDAY 05/28/16 03/08/21 03/06/21 History [Centrum Silver Tablet] [place] 25 mg PO DAILY 05/31/16 03/08/21 08/05/16 History HYDROcodone/APAP 5-325 [[place] 1 - 2 each PO Q4HR PRN #30 tablet 08/06/16 03/08/21 Unknown Rx 5-325 mg TAB] Aspirin EC [Ecotrin] 325 mg PO QDAY #30 tablet 04/02/20 03/08/21 03/06/21 Rx NIFEdipine XL [Procardia Xl] 30 mg PO Q12HR #60 tablet 04/02/20 03/08/21 03/07/21 Rx Pravastatin [Pravachol] 80 mg PO QHS #30 tablet 04/02/20 03/08/21 03/07/21 Rx hydrALAZINE [Apresoline TAB] 75 mg PO Q8HR #90 tablet 04/02/20 03/08/21 03/06/21 Rx Active Medications: Generic Name Dose Route Start Last Admin Trade Name Freq PRN Reason Stop Dose Admin Acetaminophen 650 mg 03/07/21 23:40 Acetaminophen 325 Mg Tab PO Q4H PRN Pain MILD(1-3)/Fever >100.5/[place] Albuterol 2.5 mg 03/07/21 23:40 Albuterol 2.5 Mg/3 Ml Nebu IH Q3HRT PRN Shortness Of Breath Aspirin 325 mg 03/08/21 10:00 03/13/21 10:04 Aspirin Ec 325 Mg Tab PO 325 mg QDAY RANDI Administration Dextrose 50 ml 03/07/21 23:40 Dextrose 50% In Water (25gm) 50 Ml Syringe IV Q30MIN PRN Hypoglycemia Protocol Docusate Sodium 100 mg 03/08/21 10:00 03/13/21 21:04 Docusate Sodium 100 Mg Cap PO 100 mg BID RANDI Administration Famotidine 10 mg 03/08/21 10:00 03/13/21 21:03 Famotidine 10 Mg Tab PO 10 mg BID RANDI Administration Guaifenesin 600 mg 03/08/21 01:00 03/13/21 21:03 Guaifenesin Er 600 Mg Tab PO 600 mg BID RANDI Administration Heparin Sodium (Porcine) 5,000 unit 03/08/21 10:00 03/13/21 21:04 Heparin 5,000 Unit/1 Ml Vial SUB-Q 5,000 unit BID RANDI Administration Hydralazine HCl 75 mg 03/08/21 06:00 03/14/21 05:21 Hydralazine 25 Mg Tab PO 75 mg Q8HR RANDI Administration Sodium Chloride 500 mls @ 50 mls/hr 03/14/21 10:00 03/14/21 10:02 Nacl 0.9% 500 Ml IV 50 mls/hr DIRECT RANDI Administration Insulin Human Lispro 0 unit 03/08/21 07:30 03/13/21 21:05 Insulin Lispro 100 Unit/Ml SUB-Q Not Given ACHS [facility] Protocol Metoprolol Tartrate 25 mg 03/09/21 22:00 03/13/21 21:03 Metoprolol Tartrate 25 Mg Tab PO 25 mg BID RANDI Administration Nifedipine 30 mg 03/08/21 10:00 03/13/21 21:03 Nifedipine Xl 30 Mg Tab PO 30 mg Q12HR RANDI Administration Nitroglycerin 0.4 mg 03/07/21 23:42 Nitroglycerin 0.4 Mg Tab Subl SL .Q5MIN PRN Chest Pain Ondansetron HCl 4 mg 03/07/21 23:40 Ondansetron 4 Mg/2 Ml Inj IV Q6H PRN Nausea And Vomiting Pravastatin Sodium 80 mg 03/08/21 22:00 03/13/21 21:03 Pravastatin 80 Mg Tab PO 80 mg QHS RANDI Administration Sodium Chloride 10 ml 03/08/21 10:00 03/13/21 21:03 Sodium Chloride 0.9% 10 Ml Flush Syringe IV 10 ml BID RANDI Administration Sodium Chloride 10 ml 03/07/21 23:40 Sodium Chloride 0.9% 10 Ml Flush Syringe IV PRN PRN LINE FLUSH
[2021-03-14] MEDS: fentaNYL 100 MCG/2 ML INJ ONE ×2 (10:33→10:46)
[2021-03-14] MEDS: LIDOCAINE (2%) 20 MG/1 ML VIAL 20 ML MDV INFILTRATI ONE ×2 (10:34→10:49)
[2021-03-14] MEDS: HEPARIN 10,000 UNITS/10 ML VIAL ONE ×2 (10:34→10:51)
[2021-03-14] MEDS: MIDAZOLAM 2 MG/2 ML INJ ONE ×2 (10:34→10:46)
[2021-03-14] MEDS: VERAPAMIL 5 MG/2 ML INJ ONE ×2 (10:35→10:51)
[2021-03-14] MEDS ORDERED: HEPARIN 10,000 UNITS/10 ML VIAL IV PRN (11:58)
[2021-03-14] MEDS ORDERED: HEPARIN 10,000 UNITS/10 ML VIAL IV ONE (11:58)
--- NOTE | 2021-03-14 11:58 | Progress Note ---
Assessment and Plan Acute heart failure reduced ejection fraction in setting of new cardiomyopathy * Patient is currently chest pain-free. She appears to be nearing euvolemia. Continue Lasix 40 mg p.o. daily. Repeat BMP in a.m. * Echo reviewed - EF 15-20%, LV mod dilated, mild diastolic dysfxn, mild MR, mod L pleural effusion. * Exercise MPI stress test (03/12/2021): Mild inferior apical ischemia. Estimated EF is 35% * Continue goal-directed therapy with cardioprotective regimen: ASA 325, metoprolol 25 mg twice daily, pravastatin 80. Plan to resume ACEI once ANTONIO is resolved. Refer for outpatient cardiac rehab. * LifeVest placement is canceled pending CABG. * [facility] reviewed (03/14/2021): Significant left main disease. Patient to be transferred to [place], Dr. Murillo accepting surgeon for CABG. currently waiting for available bed. Recommend placement in [facility] ICU until bed available. Dr. Lam, licensed pharmacist consulted. Initiate heparin drip standard titration. * Status post [facility] and prescribed TR band removal patient has recurring hematoma despite pressure dressing. Stat arterial ultrasound of right upper limb is pending Acute Kidney Injury * No LUCIEN/ARB in setting of ANTONIO. Avoid nephrotoxic agents. Nephrology is following Respiratory distress in setting of pleural effusion * Management per primary team DVT prophylaxis * Heparin SQ Awaiting transfer to [place], Dr Murillo accepting surgeon. Request ICU bed until transfer. Will follow Patient should follow-up with Dr David Sanford, [facility] design specialist in our [place] office on 03/30/21 at 3:30 PM. #[phone] Pt seen in conjunction with Dr. Gallagher, who agrees with the assessment and plan of care. - Patient Problems (1) Acute HFrEF (heart failure with reduced ejection fraction) Current Visit: Yes Status: Acute (2) Pleural effusion Current Visit: Yes Status: Acute (3) Cardiomyopathy Current Visit: Yes Status: Acute (4) ANTONIO (acute kidney injury) Current Visit: Yes Status: Acute (5) Elevated troponin Current Visit: Yes Status: Acute (6) HTN (hypertension) Current Visit: Yes Status: Chronic Qualifiers: Hypertension type: essential hypertension Qualified Code(s): I10 - Essential (primary) hypertension (7) HLD (hyperlipidemia) Current Visit: Yes Status: Chronic Qualifiers: Hyperlipidemia type: mixed hyperlipidemia Qualified Code(s): E78.2 - Mixed hyperlipidemia (8) DM2 (diabetes mellitus, type 2) Current Visit: Yes Status: Chronic (9) Carotid artery stenosis Current Visit: Yes Status: Chronic (10) Chronic back pain Current Visit: Yes Status: Chronic Subjective Date of service: 03/14/21 Principal diagnosis: Acute HFrEF/New CMP Interval history: Patient resting comfortably in bed. No shortness of breath or chest pain overnight. Telemetry reviewed: Sinus rhythm 70. No events Objective Last Vital Signs Temp 97.7 F 03/14/21 11:30 Pulse 80 03/14/21 11:45 Resp 16 03/14/21 11:45 BP 171/92 03/14/21 11:45 Pulse Ox 96 03/14/21 11:45 - Physical Examination General: No Apparent Distress HEENT: Positive: EOMI, Normocephaly, Mucus Membranes Moist Neck: Positive: neck supple, trachea midline. Negative: JVD/HJR Cardiac: Positive: Reg Rate and Rhythm, S1/S2 Lungs: Positive: Normal Exam, Normal Breath Sounds Neuro: Positive: Grossly Intact Abdomen: Positive: Soft. Negative: Tender Skin: Negative: Rash, Wound Musculoskeletal: No Pain, Normal Range of Motion Extremities: Present: lower extr. pulses. Absent: edema - Labs and Meds Coagulation 03/13/21 Range/Units 17:22 PT 12.7 (12.2-14.9) Sec. INR 0.90 (0.87-1.13) CBC 03/13/21 Range/Units 17:22 WBC 7.3 (4.5-11.0) K/mm3 RBC 3.44 L (3.65-5.03) M/mm3 Hgb 11.2 (10.1-14.3) gm/dl Hct 32.6 (30.3-42.9) % Plt Count 388 (140-440) K/mm3 Lymph # (Auto) 1.8 (1.2-5.4) K/mm3 [place] # (Auto) 1.1 H (0.0-0.8) K/mm3 Eos # (Auto) 0.3 (0.0-0.4) K/mm3 Baso # (Auto) 0.1 (0.0-0.1) K/mm3 Comprehensive Metabolic Panel 03/14/21 Range/Units 05:04 Sodium 136 L (137-145) mmol/L Potassium 4.4 (3.6-5.0) mmol/L Chloride 102.7 (98-107) mmol/L Carbon Dioxide 19 L (22-30) mmol/L BUN 47 H (7-17) mg/dL Creatinine 1.5 H (0.6-1.2) mg/dL Glucose 121 H (65-100) mg/dL Calcium 9.1 (8.4-10.2) mg/dL - Imaging and Cardiology EKG: report reviewed, image reviewed Echo: report reviewed (03/08/2021 - EF 15-20%, LV mod dilated, mild diastolic dysfxn, mild MR, mod L pleural effusion), other (03/2020 - EF 55-60%, mild concentric LVH, trace MR, trace AR, trace TR) - Telemetry EKG Rhythm: Sinus Rhythm - EKG Sinus rhythms and dysrhythmias: sinus rhythm Chamber hypertrophy or enlargement: left ventricular hypertro Repolarization changes or abnormalities: nonspecific abnormality, ST segment, and/or T wave
[2021-03-14] MEDS ORDERED: HEPARIN/ 0.45% NACL DRIP 25,000 UNIT/500 ML BAG IV SCH (12:00)
[2021-03-14] MEDS ORDERED: HEPARIN 10,000 UNITS/10 ML VIAL ONE (12:16)
[2021-03-14] MEDS ORDERED: HEPARIN/ 0.45% NACL DRIP 25,000 UNIT/500 ML BAG ONE (12:17)
[2021-03-14] MEDS: INSULIN LISPRO 100 UNIT/ML SUB-Q SCH ×2 (12:45→16:21)
--- NOTE | 2021-03-14 12:49 | Progress Note ---
Assessment and Plan Assessment and plan: Coronary artery disease LHC done today 03/14 reveal significant left main disease For transfer to [place] Pneumonia -CXR shows Interval development of confluent infiltrate in the right lung base likely represents an infectious process -Blood Cultures no growth x 48 hours -Continue IV Abx -Supportive care Acute CHF (new onset) -BNP elevated at 9110 on admission -CXR showed Interval development of small bilateral pleural effusions with associated compressive atelectasis -Continue ASA and LUCIEN, will start on BB -Continue IV Lasix per cardiology recommendation -Echo revealed EF 15-20%, LV mod dilated, mild diastolic dysfxn, mild MR, mod L pleural effusion. Elevated troponin -Troponin elevated on admission Acute hypoxic respiratory failure -Etiology secondary to CHF and pneumonia -Albuterol as needed -Supplemental oxygen as needed HTN -Monitor BP -Continue anti-hypertensive meds DM -With hyperglycemia -BG on admission 201 -POC BG monitoring -SSI coverage prn ANTONIO Nephrology following Cr 1.7 today GI and DVT PPX -On heparin and Pepcid 03/10/2021. Patient with increasing creatinine. Renal ultrasound negative for hydronephrosis. Cardiology started Lasix twice daily. No LUCIEN inhibitor or ARB secondary to renal function. Cardiology plans for ischemic evaluation on Friday if stable. Continue IV antibiotics. Follow-up chest x-ray in a.m. 03/11/2021. Creatinine slightly improved this morning. Patient for ischemic evaluation on tomorrow. Follow-up chest x-ray reveals resolution of previously seen bibasilar pulmonary opacities. The lungs now are completely clear. Discontinue antibiotics. 03/12/2021. Patient for ischemic evaluation with stress test this morning. Await results and cardiology recommendations for discharge. Continue GDMT for acute systolic heart failure exacerbation. Echo revealed EF 15-20%, LV mod dilated, mild diastolic dysfxn, mild MR, mod L pleural effusion. Also, will discuss with nephrology plans regarding renal function. Physical therapy eval uation reports patient with no acute skilled therapy needs. Anticipate discharge later today or in a.m. 03/13/2021 Patient initially presented with shortness of breath. She was diagnosed with acute systolic CHF with EF 15-20%. She had an abnormal stress test and needs cardiac cath. Cardiology waiting for clearance from Nephrology. Prob cath in 1-2 days. Cardiology also recommends life vest. 03/14/2021 Patient initially presented with SOB, diagnosed with acute systolic CHF with EF 15-20%. Cardiac cath done today reveal significant Left main disease . Cardiology has arranged for her to be transferred to [place] for CABG. Dr. Murillo. In mean time will transfer to ICU. History Interval history: Patient initially presented with shortness of breath Had cardiac cath today Hospitalist Physical - Physical exam Narrative exam: Gen: Not in acute distress, lying in bed HEENT: Normochephalic, atraumatic Neck:supple, Lungs: Clear, no rales Heart:S1 and S2 reg, no murmurs, rubs or gallop Abd: soft, non tender, non distended, normal bowel sounds Ext: No edema, no clubbing, no cyanosis Neuro:Awake,alert,oriented X 3, moves all ext, no focal neurological signs - Constitutional Vitals: Temp Pulse Resp BP Pulse Ox 97.7 F 72 19 167/87 98 03/14/21 11:30 03/14/21 12:00 03/14/21 12:00 03/14/21 12:00 03/14/21 12:00 General appearance: Present: no acute distress HEART Score - HEART Score EKG: Non-specific Age: 45-65 Risk factors: > 3 risk factors or hx of atherosclerotic disease Troponin: Troponin T 0.011 ng/mL (0.00-0.029) 03/13/21 04:59 Results - Labs CBC & Chem 7: 03/13/21 17:22 03/14/21 05:04 Labs: Laboratory Last Values WBC 7.3 K/mm3 (4.5-11.0) 03/13/21 17: RBC 3.44 M/mm3 (3.65-5.03) L 03/13/21 17:22 Hgb 11.2 gm/dl (10.1-14.3) 03/13/21 17: Hct 32.6 % (30.3-42.9) 03/13/21 17: MCV 95 fl (79-97) 03/13/21 17:22 MCH 33 pg (28-32) H 03/13/21 17:22 MCHC 34 % (30-34) 03/13/21 17: RDW 13.8 % (13.2-15.2) 03/13/21 17:22 Plt Count 388 K/mm3 (140-440) 03/13/21 17:22 Lymph % (Auto) 25.2 % (13.4-35.0) 03/13/21 17:22 [place] % (Auto) 14.5 % (0.0-7.3) H 03/13/21 17:22 Eos % (Auto) 4.5 % (0.0-4.3) H 03/13/21 17:22 Baso % (Auto) 0.9 % (0.0-1.8) 03/13/21 17:22 Lymph # (Auto) 1.8 K/mm3 (1.2-5.4) 03/13/21 17:22 [place] # (Auto) 1.1 K/mm3 (0.0-0.8) H 03/13/21 17:22 Eos # (Auto) 0.3 K/mm3 (0.0-0.4) 03/13/21 17: Baso # (Auto) 0.1 K/mm3 (0.0-0.1) 03/13/21 17:22 Seg Neutrophils % 54.9 % (40.0-70.0) 03/13/21 17: Seg Neutrophils # 4.0 K/mm3 (1.8-7.7) 03/13/21 17: PT 12.7 Sec. (12.2-14.9) 03/13/21 17:22 INR 0.90 (0.87-1.13) 03/13/21 17:22 Sodium 136 mmol/L (137-145) L 03/14/21 05:04 Potassium 4.4 mmol/L (3.6-5.0) 03/14/21 05:04 Chloride 102.7 mmol/L (98-107) 03/14/21 05:04 Carbon Dioxide 19 mmol/L (22-30) L 03/14/21 05:04 Anion Gap 19 mmol/L 03/14/21 05:04 BUN 47 mg/dL (7-17) H 03/14/21 05:04 Creatinine 1.5 mg/dL (0.6-1.2) H 03/14/21 05:04 Estimated GFR 42 ml/min 03/14/21 05:04 BUN/Creatinine Ratio 31 % 03/14/21 05:04 Glucose 121 mg/dL (65-100) H 03/14/21 05:04 POC Glucose 147 mg/dL (70-105) H 03/14/21 09:16 Calcium 9.1 mg/dL (8.4-10.2) 03/14/21 05:04 Total Bilirubin 0.30 mg/dL (0.1-1.2) 03/07/21 14:27 AST 22 units/L (5-40) 03/07/21 14:27 ALT 29 units/L (7-56) 03/07/21 14:27 Alkaline Phosphatase 73 units/L (35-129) 03/07/21 14:27 Troponin T 0.011 ng/mL (0.00-0.029) 03/13/21 04:59 NT-Pro-B Natriuret Pep 9110 pg/mL (0-900) H 03/07/21 14:27 Total Protein 7.2 g/dL (6.3-8.2) 03/07/21 14:27 Albumin 3.9 g/dL (3.9-5) 03/07/21 14:27 Albumin/Globulin Ratio 1.2 % 03/07/21 14:27 Triglycerides 92 mg/dL (2-149) 03/07/21 21:37 Cholesterol 142 mg/dL (50-199) 03/07/21 21:37 LDL Cholesterol Direct 91 mg/dL (50-130) 03/07/21 21:37 HDL Cholesterol 53 mg/dL (40-59) 03/07/21 21:37 Cholesterol/HDL Ratio 2.67 % 03/07/21 21:37 Urine Color Straw (Yellow) 03/09/21 06:00 Urine Turbidity Clear (Clear) 03/09/21 06:00 Urine pH 6.0 (5.0-7.0) 03/09/21 06:00 Ur Specific [place] 1.009 (1.003-1.030) 03/09/21 06:00 Urine Protein <15 mg/dl mg/dL (Negative) 03/09/21 06:00 Urine Glucose (UA) Neg mg/dL (Negative) 03/09/21 06:00 Urine Ketones Neg mg/dL (Negative) 03/09/21 06:00 Urine Blood Neg (Negative) 03/09/21 06:00 Urine Nitrite Neg (Negative) 03/09/21 06:00 Urine Bilirubin Neg (Negative) 03/09/21 06:00 Urine Urobilinogen < 2.0 mg/dL (<2.0) 03/09/21 06:00 Ur Leukocyte Esterase Neg (Negative) 03/09/21 06:00 Urine WBC (Auto) < 1.0 /HPF (0.0-6.0) 03/09/21 06:00 Urine RBC (Auto) 1.0 /HPF (0.0-6.0) 03/09/21 06:00 U Epithel Cells (Auto) 1.0 /HPF (0-13.0) 03/09/21 06:00 Urine Mucus Few /HPF 03/09/21 06:00 Urine Creatinine 49.1 mg/dL (0.1-20.0) H 03/09/21 06:00 Urine Sodium 97 mmol/L 03/09/21 06:00 Nasal Screen MRSA (PCR) Negative (Negative) 03/08/21 Unknown Rosa/IV: Voiding Method Toilet Active Medications - Current Medications Current Medications: Generic Name Dose Route Start Last Admin Trade Name Freq PRN Reason Stop Dose Admin Acetaminophen 650 mg 03/07/21 23:40 Acetaminophen 325 Mg Tab PO Q4H PRN Pain MILD(1-3)/Fever >100.5/[place] Albuterol 2.5 mg 03/07/21 23:40 Albuterol 2.5 Mg/3 Ml Nebu IH Q3HRT PRN Shortness Of Breath Aspirin 325 mg 03/08/21 10:00 03/13/21 10:04 Aspirin Ec 325 Mg Tab PO 325 mg QDAY RANDI Administration Dextrose 50 ml 03/07/21 23:40 Dextrose 50% In Water (25gm) 50 Ml Syringe IV Q30MIN PRN Hypoglycemia Protocol Docusate Sodium 100 mg 03/08/21 10:00 03/13/21 21:04 Docusate Sodium 100 Mg Cap PO 100 mg BID RANDI Administration Famotidine 10 mg 03/08/21 10:00 03/13/21 21:03 Famotidine 10 Mg Tab PO 10 mg BID RANDI Administration Guaifenesin 600 mg 03/08/21 01:00 03/13/21 21:03 Guaifenesin Er 600 Mg Tab PO 600 mg BID RANDI Administration Heparin Sodium (Porcine) 2,700 unit 03/14/21 11:58 Heparin 10,000 Units/10 Ml Vial 40 unit/kg (2700 unit) IV Q6H PRN Anti-Xa Assay < 0.1 units/ml Hydralazine HCl 75 mg 03/08/21 06:00 03/14/21 05:21 Hydralazine 25 Mg Tab PO 75 mg Q8HR RANDI Administration Sodium Chloride 500 mls @ 50 mls/hr 03/14/21 10:00 03/14/21 10:02 Nacl 0.9% 500 Ml IV 50 mls/hr DIRECT RANDI Administration Heparin Sodium/Sodium Chloride 25,000 unit in 500 mls @ 20 mls/hr 03/14/21 12:00 03/14/21 12:25 Heparin/ 0.45% Nacl-25,000 Unit/500 Ml IV 1,000 units/hr TITRATE RANDI 20 mls/hr Administration Protocol 1,000 UNITS/HR Insulin Human Lispro 0 unit 03/08/21 07:30 03/14/21 12:45 Insulin Lispro 100 Unit/Ml SUB-Q Not Given ACHS [facility] Protocol Metoprolol Tartrate 25 mg 03/09/21 22:00 03/13/21 21:03 Metoprolol Tartrate 25 Mg Tab PO 25 mg BID RANDI Administration Nifedipine 30 mg 03/08/21 10:00 03/13/21 21:03 Nifedipine Xl 30 Mg Tab PO 30 mg Q12HR RANDI Administration Nitroglycerin 0.4 mg 03/07/21 23:42 Nitroglycerin 0.4 Mg Tab Subl SL .Q5MIN PRN Chest Pain Ondansetron HCl 4 mg 03/07/21 23:40 Ondansetron 4 Mg/2 Ml Inj IV Q6H PRN Nausea And Vomiting Pravastatin Sodium 80 mg 03/08/21 22:00 03/13/21 21:03 Pravastatin 80 Mg Tab PO 80 mg QHS RANDI Administration Sodium Chloride 10 ml 03/08/21 10:00 03/13/21 21:03 Sodium Chloride 0.9% 10 Ml Flush Syringe IV 10 ml BID RANDI Administration Sodium Chloride 10 ml 03/07/21 23:40 Sodium Chloride 0.9% 10 Ml Flush Syringe IV PRN PRN LINE FLUSH
[2021-03-14] MEDS: METOPROLOL TARTRATE 25 MG TAB PO SCH (12:53)
[2021-03-14] MEDS: DOCUSATE SODIUM 100 MG CAP PO SCH (12:54)
[2021-03-14] MEDS: FAMOTIDINE 10 MG TAB PO SCH (12:54)
[2021-03-14 17:40] VITALS: BP 154/86
--- NOTE | 2021-03-14 18:12 | Cardiac Catherization Report ---
DATE OF SERVICE: 03/14/2021 INDICATION: A 65-year-old -[place] female with history of hypertension, diabetes mellitus, presented to the Emergency Room with shortness of breath. Echocardiogram showed good ejection fraction around 20%. Was diuresed and developed acute kidney injury, which is improving. EKG showed sinus rhythm with diffuse T-wave changes, maybe secondary to LVH versus ischemia. Nuclear imaging showed ejection fraction of 35% with evidence of anteroapical ischemia. Hence, scheduled for cardiac catheterization. The patient is aware of the procedure, potential complications, and the alternatives of therapy available. DESCRIPTION OF PROCEDURE: The patient was brought to the catheterization laboratory in a fasting condition. Right wrist area was thoroughly cleansed with Betadine solution, sterile drapes were applied. Local anesthesia was achieved using 2% Xylocaine. Right radial artery was prepared and accessed with 21-gauge arterial puncture needle. The patient prior to this was evaluated for moderate sedation and was felt to be appropriate candidate for moderate sedation and received IV Versed and fentanyl. Subsequently, after obtaining the access of the right radial artery, a 5-[place] slender sheath was introduced. A 5-[place] multipurpose catheter was used to obtain the angiograms of the right coronary artery followed by obtaining the angiograms of the left coronary artery using a JL3.5 catheter. Left ventriculogram was not performed considering her acute kidney injury. Following finding were noted: 1. Right coronary artery: Total occlusion at the ostium after a right ventricular branch. This is filling distal LAD. 2. Left coronary artery: Left main shows 60% to 70% focal distal disease. LAD showed some ectasia in the proximal part with significant lesion at the trifurcation into the septal and mid diagonal branch, probably significant lesion in this area 80% or more. Also mid LAD has focal lesions approaching 70% to 80%. Proximal diagonal branch shows this is approaching 60% or so. Similarly marginal branches show 50% to 60% disease in the mid parts of the OM1 and OM2. Ramus branch shows a 60% long proximal lesion. All these vessels are bypassable. On LCA injection, right coronary artery is filling retrograde. FINAL IMPRESSION: LV gram was not performed. Her echocardiogram showed severe LV dysfunction in the range of 20% to 25%. Left main shows 60% to 70% ostial lesion in addition to mid LAD shows complex tight lesion with distal lesions. On RCA injection, distal LAD is filling retrograde. Also, moderate disease noted in the marginal branch. RCA is occluded with retrograde filling. Considering the above anatomy with significant lesions at multiple sites, the patient would benefit from the surgical intervention. The patient is a diabetic. In addition, also has recent underlying acute kidney injury, which improved markedly. The patient is hemodynamically stable without any chest pain. Arrangements being performed to transfer to [facility] for bypass surgery. Left voice call to the patient's . The patient's sedation started at 10:46 a.m. and continuously monitored with pulse oximetry, hemodynamic and EKG monitoring. Sedation monitoring ended at 10:59 a.m. The patient is hemodynamically stable and communicating normally with no focal deficits. TID: [id number] RECEIPT: [id number] MATEUSZ/FAM BARAJAS
--- NOTE | 2021-03-15 10:45 | Nuclear Medicine Report ---
APPROVED REPORT Exam: Nuclear Stress Test Indication: Chest pain BMI: 0 Stress Test Details HR Resting HR: 77 bpm Max HR Achieved: 128 bpm Max Heart Rate (APMHR): 156 bpm Target HR (85% APMHR): 132 bpm % of APMHR: 82 HR response to stress: Normal HR response to stress BP Resting BP: 142/77 mmHg Max BP: 161/83 mmHg Recovery BP: 149/83 mmHg BP response to stress: Normal blood pressure response to stress. ECG Resting ECG: Sinus Rhythm Stress ECG: Sinus Tachycardia ST Change: Nondiagnostic resting ST abnormalities Arrhythmia: None Clinical Reason for Termination: Fatigue Stress Symptoms: None Exercise duration: 5 min 17 sec Exercise capacity: 6.1 METs Overall Exercise Capacity for Age: Good Stress ECG Conclusion Non-diagnostic exercise stress due to baseline EKG changs. NM EXAM: Myocardial Perfusion REST/STRESS Imaging Protocol: Rest Tc-99m/Stress Tc-99m 1 day Resting Data Rest SPECT myocardial perfusion imaging was performed in supine position 45 minutes following the intravenous injection of 10 mCi of Tc-99m Myoview. Time of rest injection: 0705 Exercise Stress At peak stress, the patient was injected intravenously with 28mCi of Tc-99m Myoview. Time of stress injection: 0900 Gated Stress SPECT was performed 30 minutes after stress injection. The images were gated to evaluate regional wall motion and calculate left ventricular ejection fraction. Study Quality Study: excellent Lung Uptake: Normal Study Data Post stress, the left ventricular ejection was 35%.. TID = 1.08. Perfusion Nuclear Conclusion ECG Findings: non-diagnostic Nuclear Findings: positive for ischemia Left Ventricular Function: abnormal Risk Study: high Post stress, the left ventricular ejection was 35%.. There is a small area of reduced uptake in the segment of the inferior and apical walsl which is seen on the stress images and normalizes on the resting images. These changes are consistent with stress induced ischemia. Conclusion Non-diagnostic exercise stress due to baseline EKG changs.
--- NOTE | 2021-03-15 11:05 | Electrocardiograph Report ---
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
--- NOTE | 2021-03-16 19:18 | Electrocardiograph Report ---
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 Electronically Signed On 03-16-2021 19:18:41 EDT by Kingsley Gallagher
--- NOTE | 2021-03-28 20:25 | Discharge Summary ---
Providers - Providers Date of Admission: 03/08/21 11:11 Date of discharge: 03/14/21 Attending physician: CHRISS BO 03/07/21 23:13 Consult to Physician [CONS] Routine Comment: Consulting Provider: ANTONIO MCKENZIE Physician Instructions: Reason For Exam: arf 03/07/21 23:40 Consult to Physician [CONS] Routine Comment: Consulting Provider: CHARLINE PETERS Physician Instructions: Reason For Exam: elevated trop, newonset chf 03/09/21 10:08 Physical Therapy Evaluation and Treat [CONS] Routine Comment: Reason For Exam: Deconditioning 03/12/21 11:27 Consult to Cardiac Rehabilitation [CONS] Routine Reason For Exam: Cardiomyopathy Additional Notes/Special Instructions: Please evaluate patient for outpatient cardiac rehab in setting of new or worsening diagnosis of severe cardiomyopathy 03/14/21 11:50 Consult to Physician [CONS] Routine Comment: s/p LHC with Left main occlusion and CMP 15% Consulting Provider: SANDRO PENG Physician Instructions: Reason For Exam: Hemodynamic Instability Primary care physician: CRYSTAL JUAN Hospitalization Condition: Stable Hospital course: Patient is 65-year-old -[place] female who was a former smoker (quit 6 months ago) with history of hypertension, DM2, HLD, and chronic back pain who presents [facility] ED with complaints of cough and shortness of breath. Patient complains of nonproductive cough x1 week, progressively worsening shortness of breath which started approximately 1 day ago. Her shortness of breath is exacerbated with exertion and relieved with rest. Denies bilateral lower extremity edema, peripheral edema, PND, or orthopnea. Endorses receiving both doses of COVID-19 vaccine. Patient also complains of fatigue with exertion. Denies any new exercise regiment or strenuous activity. States that she quit smoking 6 months ago, and does not use any other form of tobacco products at t his time. She was seen and evaluated in ED and diagnosed with acute CHF and pneumonia. She was started on Lasix, iv Antibiotics and admitted. Echo revealed EF 15-20%. Patient was evaluated by Cardiology and stress test done on 03/12/19 revealed apical ischemia. Cardiac cath done on 03/14 after Creatinine stabilized. Cardiac cath revealed multi-vessel extensive coronary artery disease. Cardiology therefore recommended transfer to [place] for CABG. She was subsequently discharged to [place] on 03/14/21 Coronary artery disease LHC done today 03/14 reveal significant multi vessel CAD For transfer to [place] Pneumonia -CXR shows Interval development of confluent infiltrate in the right lung base likely represents an infectious process -Blood Cultures no growth x 48 hours -Continue IV Abx -Supportive care Acute CHF (new onset) -BNP elevated at 9110 on admission -CXR showed Interval development of small bilateral pleural effusions with associated compressive atelectasis -Continue ASA and LUCIEN, will start on BB -Continue IV Lasix per cardiology recommendation -Echo revealed EF 15-20%, LV mod dilated, mild diastolic dysfxn, mild MR, mod L pleural effusion. Elevated troponin -Troponin elevated on admission Acute hypoxic respiratory failure -Etiology secondary to CHF and pneumonia -Albuterol as needed -Supplemental oxygen as needed HTN -Monitor BP -Continue anti-hypertensive meds DM -With hyperglycemia -BG on admission 201 -POC BG monitoring -SSI coverage prn ANTONIO Nephrology following GI and DVT PPX -On heparin and Pepcid 03/10/2021. Patient with increasing creatinine. Renal ultrasound negative for hydronephrosis. Cardiology started Lasix twice daily. No LUCIEN inhibitor or ARB secondary to renal function. Cardiology plans for ischemic evaluation on Friday if stable. Continue IV antibiotics. Follow-up chest x-ray in a.m. 03/11/2021. Creatinine slightly improved this morning. Patient for ischemic evaluation on tomorrow. Follow-up chest x-ray reveals resolution of previously seen bibasilar pulmonary opacities. The lungs now are completely clear. Discontinue antibiotics. 03/12/2021. Patient for ischemic evaluation with stress test this morning. Await results and cardiology recommendations for discharge. Continue GDMT for acute systolic heart failure exacerbation. Echo revealed EF 15-20%, LV mod dilated, mild diastolic dysfxn, mild MR, mod L pleural effusion. Also, will discuss with nephrology plans regarding renal function. Physical therapy evaluation reports patient with no acute skilled therapy needs. Anticipate discharge later today or in a.m. 03/13/2021 Patient initially presented with shortness of breath. She was diagnosed with acute systolic CHF with EF 15-20%. She had an abnormal stress test and needs cardiac cath. Cardiology waiting for clearance from Nephrology. Prob cath in 1-2 days. Cardiology also recommends life vest. 03/14/2021 Patient initially presented with SOB, diagnosed with acute systolic CHF with EF 15-20%. Cardiac cath done today reveal significant multivessel CAD. Cardiology has arranged for her to be transferred to [place] for CABG. Dr. Murillo. In mean time will transfer to ICU. Disposition: [id number]/[id number] SHRT-TRM GEN HOSP IP Final Discharge Diagnosis (Prints w/discharge instructions): 1.Extensive multivessel CAD. 2.Acute systolic CHF. 3.Pneumonia - Discharge Diagnoses (1) CAD (coronary atherosclerotic disease) Status: Acute Qualifiers: Coronary Disease-Associated Artery/Lesion type: [place] artery Associated angina: without angina (2) ANTONIO (acute kidney injury) Status: Acute (3) Acute HFrEF (heart failure with reduced ejection fraction) Status: Acute (4) Cardiomyopathy Status: Acute (5) Diabetes Status: Acute (6) Pneumonia Status: Acute Qualifiers: Pneumonia type: due to unspecified organism Laterality: right (7) Carotid artery stenosis Status: Chronic (8) DM2 (diabetes mellitus, type 2) Status: Chronic (9) HLD (hyperlipidemia) Status: Chronic Qualifiers: Hyperlipidemia type: mixed hyperlipidemia Qualified Code(s): E78.2 - Mixed hyperlipidemia (10) HTN (hypertension) Status: Chronic Qualifiers: Hypertension type: essential hypertension Qualified Code(s): I10 - Essential (primary) hypertension Core Measure Documentation - Palliative Care Palliative Care/ Comfort Measures: Not Applicable - Core Measures Any of the following diagnoses?: heart failure - Heart Failure Discharge Requirements LUCIEN/ARB for LVSD if EF <40%: Yes Beta soniya at discharge: Yes Exam - Constitutional Vitals: Temp Pulse Resp BP Pulse Ox 97.7 F 81 12 154/86 96 03/14/21 11:30 03/14/21 17:30 03/14/21 17:30 03/14/21 17:30 03/14/21 17:30 Plan Follow up with: CRYSTAL JUAN MD [Primary Care Provider] - 3-5 Days
== END 2021-03-14 17:56 | disposition short-term general hospital (02) | DRG 286 ==
LOC: ED 12:43 → 4A 23:12 → OBSVTOIN 03-08 11:11
PROVIDERS: ADMIT Internal Medicine Geriatric Medicine; ATTEND Internal Medicine
PROC: 4A023N7 Measurement of Cardiac Sampling and Pressure, Left Heart, Percutaneous Approach (ICD-10-PCS; principal; 2021-03-14)
PROC: B2111ZZ Fluoroscopy of Multiple Coronary Arteries using Low Osmolar Contrast (ICD-10-PCS; 2021-03-14)
DX: I11.0 Hypertensive heart disease with heart failure (principal); J18.9 Pneumonia, unspecified organism; J96.01 Acute respiratory failure with hypoxia; I50.31 Acute diastolic (congestive) heart failure; N17.0 Acute kidney failure with tubular necrosis; J90 Pleural effusion, not elsewhere classified; E87.2 Acidosis; I42.9 Cardiomyopathy, unspecified; G89.29 Other chronic pain; I25.10 Atherosclerotic heart disease of native coronary artery without angina pectoris; R77.8 Other specified abnormalities of plasma proteins; I65.29 Occlusion and stenosis of unspecified carotid artery; M54.9 Dorsalgia, unspecified; E78.5 Hyperlipidemia, unspecified; R79.89 Other specified abnormal findings of blood chemistry; E11.65 Type 2 diabetes mellitus with hyperglycemia; E11.51 Type 2 diabetes mellitus with diabetic peripheral angiopathy without gangrene; Z79.899 Other long term (current) drug therapy; Z79.82 Long term (current) use of aspirin; Z79.891 Long term (current) use of opiate analgesic; Z87.891 Personal history of nicotine dependence; Z83.3 Family history of diabetes mellitus; Z82.49 Family history of ischemic heart disease and other diseases of the circulatory system
CPT/HCPCS: 36415; 71045; 71046; 76770; 78452; 80048; 80053; 80061; 81001; 82570; 82962; 83880; 84300; 84484; 85025; 85027; 85610; 87040; 87641; 93005; 93017; 93306; 93454; 96365; 96375; 99406; G0378; A9502; C1894; J0692; J0696; J1644; J1815; J1940; J2250; J3010; J7040; Q9967

== ENCOUNTER 2021-07-09 10:02 | Outpatient (CLI) | payer OTHER ==
--- NOTE | 2021-07-09 11:51 | Mammography Report ---
DIGITAL SCREENING MAMMOGRAM WITH CAD, 07/09/2021 CLINICAL INFORMATION / INDICATION: Routine screening mammography. SCREENING MAMMOGRAM TECHNIQUE: Digital bilateral 2D mammography was obtained in the craniocaudal and mediolateral obliqu e projections. This examination was interpreted with the benefit of Computer-Aided Detection analysis . COMPARISON: 02/12/2010 through 06/26/2020. FINDINGS: Breast Density: The breasts are heterogeneously dense, which may obscure small masses. No dominant mass, suspicious calcifications, or architectural distortion in either breast. There are benign calcifications bilaterally. IMPRESSION: No mammographic evidence of malignancy. Follow up recommendation: Routine yearly BI-RADS Category 2: Benign. A "normal" or negative report should not discourage follow up or biopsy of a clinically significant f inding. A written summary of these findings will be mailed to the patient. The patient will be entered into a mammography reporting system which will generate a reminder letter for the patient's next appointmen t at the appropriate interval. The [employer] recommends yearly mammograms starting at age 40 and continuing as l river[place] as a woman is in good health. Breast MRI is recommended for women with an approximate 20-25% or greater lifetime risk of breast cancer, including women with a strong family history of breast or ova susan cancer or who have been treated for Hodgkin's disease. Signer Name: Simon Maguire MD Signed: 07/09/2021 11:46 AM Workstation Name: [id number]
== END 2021-07-09 10:03 | disposition home or self-care (01) ==
LOC: MAMMO 10:02
PROVIDERS: ATTEND Family Medicine Adult Medicine
DX: Z12.31 Encounter for screening mammogram for malignant neoplasm of breast (principal); N64.89 Other specified disorders of breast
CPT/HCPCS: 77067

== ENCOUNTER 2021-12-25 11:34 | Emergency (ER) | payer OTHER ==
[2021-12-25 12:59] LABS: Bilirubin,Urine NEG (Negative); Blood,Urine NEG (Negative); Color,Urine Straw (Yellow); Mucus,Urine FEW /HPF; Protein,Urine <15 mg/dL mg/dL (Negative); RBC,Urine < 1.0 /HPF (0.0-6.0); Urobilinogen,Urine < 2.0 mg/dL (<2.0); WBC,Urine < 1.0 /HPF (0.0-6.0)
[2021-12-25] MEDS ORDERED: dexAMETHasone 4 MG/ML VIAL IM ONE (13:05)
--- NOTE | 2021-12-25 13:06 | Emergency Department Report ---
ED Back Pain/Injury HPI - General Chief Complaint: Back Pain/Injury Stated Complaint: BACK PAIN Time Seen by Provider: 12/25/21 12:38 Source: patient Limitations: No Limitations - History of Present Illness Initial Comments: Patient is a 66-year-old female comes to the emergency room complaining of low back pain radiating to her right leg. She does work and she thought that maybe she was drinking too much coffee because she works third shift. She denies fever or chills. She denies any signs or symptoms of cauda equina. She denies abdominal pain. She denies chest pain or shortness of breath. On arrival to the ER she is ambulatory, nontoxic and [id number] MD Complaint: back pain - Related Data Home Medications Medication Instructions Recorded Confirmed Last Taken Aspirin 81 mg PO DAILY 05/23/21 05/23/21 05/23/21 07:00 Centrum Adults Tablet PO DAILY 05/23/21 05/23/21 07:00 Clopidogrel 75 mg PO DAILY 05/23/21 05/23/21 05/23/21 07:00 Losartan/Hydrochlorothiazide 100 mg PO DAILY 05/23/21 05/23/21 05/23/21 07:00 Metformin HCl 1,000 mg PO BID 05/23/21 05/23/21 05/22/21 21:00 NIFEdipine XL [Procardia Xl] 30 mg PO DAILY 05/23/21 05/23/21 07:00 Spironolactone 25 mg PO DAILY 05/23/21 05/23/21 05/23/21 07:00 carvediloL [Coreg] 25 mg PO BID 05/23/21 05/23/21 05/23/21 07:00 Previous Rx's Medication Instructions Recorded Last Taken Type Pravastatin [Pravachol] 80 mg PO QHS #30 tablet 04/02/20 05/22/21 21:00 Rx hydrALAZINE [Apresoline TAB] 75 mg PO Q8HR #90 tablet 04/02/20 05/22/21 21:00 Rx Cyclobenzaprine [Flexeril] 10 mg PO TID PRN #10 tablet 12/25/21 Unknown Rx Ibuprofen [Motrin] 800 mg PO Q8HR PRN #30 tablet 12/25/21 Unknown Rx methylPREDNISolone [Medrol 4MG 4 mg PO FS #1 tab.ds.pk 12/25/21 Unknown Rx DOSEPAK (21 tabs)] Allergies Allergy/AdvReac Type Severity Reaction Status Date / Time No Known Allergies Allergy Verified 12/25/21 12:31 ED Review of Systems ROS: Stated complaint: BACK PAIN Other details as noted in HPI Comment: All other systems reviewed and negative ED Past Medical Hx - Past Medical History Medical history: CAD, diabetes hyperlipidemia Psychiatric history: no pertinent history PIPEFITTER history: no PIPEFITTER history Family history: no significant family history - Social History Smoking Status: Never Smoker ED Back Pain Physical Exam - Exam General: Vital signs noted. No distress. Alert and acting appropriately. Back/Abdomen: No Abdominal Tenderness, No Perithoracic Tenderness, No Perilumbar Tenderness, No Sacroiliac Tenderness, No Flank Tenderness, No Straight Leg Raise Pain Neuro: Yes Normal Sensation, Yes Normal DTR's, Yes Normal Gait, No Motor Weakness ED Course Vital Signs 12/25/21 12:28 Temperature 97.8 F Pulse Rate 69 Respiratory 15 Rate Blood Pressure 163/79 O2 Sat by Pulse 96 Oximetry ED Medical Decision Making - Medical Decision Making Vital Signs 12/25/21 12:28 Temperature 97.8 F Pulse Rate 69 Respiratory 15 Rate Blood Pressure 163/79 O2 Sat by Pulse 96 Oximetry Lab Results 12/25/21 Range/Units Unknown Urine Color Straw (Yellow) Urine Turbidity Clear (Clear) Urine pH 6.0 (5.0-7.0) Ur Specific Sharon 1.005 (1.003-1.030) Urine Protein <15 mg/dl (Negative) mg/dL Urine Glucose (UA) 50 (Negative) mg/dL Urine Ketones Neg (Negative) mg/dL Urine Blood Neg (Negative) Urine Nitrite Neg (Negative) Urine Bilirubin Neg (Negative) Urine Urobilinogen < 2.0 (<2.0) mg/dL Ur Leukocyte Esterase Neg (Negative) Urine WBC (Auto) < 1.0 (0.0-6.0) /HPF Urine RBC (Auto) < 1.0 (0.0-6.0) /HPF U Epithel Cells (Auto) < 1.0 (0-13.0) /HPF Urine Mucus Few /HPF Urine noted to be normal. Patient medicated with Decadron IM for pain. Patient has been educated on proper body and back mechanics Patient being discharged home with discharge plan of care including diet, activity, medications and follow-up. She verbalizes understanding - Differential Diagnosis Sciatica versus UTI Critical care attestation.: If time is entered above; I have spent that time in minutes in the direct care of this critically ill patient, excluding procedure time. ED Disposition Clinical Impression: Low back pain Qualifiers: Chronicity: unspecified Back pain laterality: right Sciatica presence: with sciatica Disposition: 01 HOME / SELF CARE / HOMELESS Is pt being admited?: No Does the pt Need Aspirin: No Condition: Stable Instructions: Low Back Sprain or Strain Rehab-SportsMed Additional Instructions: Take your medications as ordered today Warm compresses will help Proper body mechanics as we discussed Stay well-hydrated with water Follow-up with PCP in 48 hours to make sure you are getting better. There is a referral below Continue home medication Referrals: INDY FUNG MD [Staff Physician] - 3-5 Days Forms: Work/School Release Form(ED) Time of Disposition: 13:13
[2021-12-25 13:50] VITALS: BP 156/80
== END 2021-12-25 13:49 | disposition home or self-care (01) ==
LOC: ED 11:34
DX: M54.50 Low back pain, unspecified (principal); I25.10 Atherosclerotic heart disease of native coronary artery without angina pectoris; E11.9 Type 2 diabetes mellitus without complications; E78.5 Hyperlipidemia, unspecified; Z79.899 Other long term (current) drug therapy
CPT/HCPCS: 81001; 96372; 99283